=== PATIENT | female | born 1940 | race African-American/Black ===

== ENCOUNTER 2016-10-31 22:45 | Emergency (ER) | payer OTHER ==
[2016-10-31] MEDS ORDERED: DUONEB (A & A) INH ONE (22:51)
--- NOTE | 2016-10-31 23:31 | PROVIDER DOCUMENTATION ---
HPI-Respiratory General - General Source: patient - History of Present Illness-Resp Severity in ED: reports: mild Onset/Duration: reports: 24 hours ago Timing: reports: still present Cough Quality/Degree: reports: mild Episode Frequency: no prior episodes Current Respiratory Medication Therapy: Initiated see nurses note Associated Symptoms: reports: cough, fever/chills, shortness of breath, sore throat Similar Symptoms Previously?: No Recently seen or treated by another doctor?: No <Jayla Mayfield - Last Filed: 10/31/16 23:27> <Everardo Diaz - Last Filed: 11/01/16 00:36> - General Chief Complaint: Cold Symptoms Stated Complaint: SOB Time Seen by Provider: 10/31/16 23:01 Allergies/Adverse Reactions: Patient Allergies Allergy/AdvReac Type Severity Reaction Status Date / Time No Known Allergies Allergy Verified 04/14/15 17:42 Home Medications: Home Medication List Medication Instructions Recorded Confirmed Last Taken Type Home Meds Unobtainable 07/14/16 11/01/16 Unknown History - History of Present Illness-Resp Nature of Presenting Problem: 76 year old F presents to the ED with a cc of shortness of breath with an onset of tonight. PT states that she has had a cough x4 months. Pt states that she has also had a subjective fever and sore throat. PT has a hx of COPD and states that she has not had a nebulizer treatment today. (Jayla Mayfield) Review of Systems - Adult - REVIEW OF SYSTEMS - ADULT Constitutional: reports: fever. denies: chills Eyes: reports: no symptoms reported Ears, Nose, Mouth & Throat: reports: throat pain. denies: ear pain Cardiovascular: denies: chest pain, palpitations Respiratory: reports: cough, shortness of breath Gastrointestinal: denies: nausea, vomiting Genitourinary: reports: no symptoms reported Musculoskeletal: reports: no symptoms reported Integumentary: reports: no symptoms reported Neurological: reports: no symptoms reported Psychiatric: reports: no symptoms reported Endocrine: reports: no symptoms reported Hematologic/Lymphatic: reports: no symptoms reported Allergic/Immunologic: reports: no symptoms reported All Other Systems: Reviewed and Negative <Jayla Mayfield - Last Filed: 10/31/16 23:27> Past History - Adult - PAST MEDICAL HISTORY-ADULT Review of Records: reports: Nursing Assessment Review, Medications Reviewed Major Childhood Illnesses: reports: denies history Cardiovascular: reports: HTN Respiratory: reports: asthma, COPD Gastrointestinal: reports: hemorrhoids Obstetrical/Gynecological: reports: denies history Genitourinary: reports: denies history Musculoskeletal: reports: denies history Neurological: reports: denies history Endocrine/Immune: reports: Diabetes Other Conditions: reports: denies history - PRIOR SURGERIES/PROCEDURES Surgical/Procedure History: reports: colonoscopy (2014), hysterectomy - IMMUNIZATION STATUS Childhood Immunizations: See Nurse Assessment Flu Vaccine: UTD - FAMILY HISTORY Family History: reviewed, not pertinent - SOCIAL HISTORY Smoking: non-smoker Substance Use: none/never Alcohol Use Frequency: never <Jayla Mayfield - Last Filed: 10/31/16 23:27> Physical Exam-General - PHYSICAL EXAM-ADULT Initial Vital Signs Reviewed: Yes - CONSTITUTIONAL General Appearance: appears well, alert, no apparent distress - RESPIRATORY Respiratory: chest non-tender, lungs clear, normal breath sounds - CARDIOVASCULAR Cardiovascular: normal peripheral pulses, regular rate, rhythm, no edema - MUSCULOSKELETAL Extremity: normal inspection, no pedal edema - SKIN Integumentary: normal color, normal turgor, warm/dry - PSYCHIATRIC Psych/Mental Status: normal mood/affect, normal thought content, normal thought process, oriented x 3 <Jayla Mayfield - Last Filed: 10/31/16 23:27> Progress - REASSESSMENT Reassessment #1 Time Reassessed: 00:34 (while awaiting for results pt complained of a cat being in the room, daughter states she does this some times) Status: unchanged <Everardo Diaz - Last Filed: 11/01/16 00:36> Departure <Jayla Mayfield - Last Filed: 10/31/16 23:27> - Departure Time of Disposition Order: 00:35 Certified Medical Emergency: Emergent <Everardo Diaz - Last Filed: 11/01/16 00:36> - Departure DIAGNOSIS: Anxiety Disposition: HOME 01 Condition: Good Attestation - Scribe Verification/Attestation Scribe:: Jayla Mayfield Acting as Scribe for:: Everardo Diaz Scribe documention review:: This chart was documented by a scribe and accurately reflects the service the provider performed and the decisions made by the provider. <Jayla Mayfield - Last Filed: 10/31/16 23:27> Physician Attestation
[2016-10-31 23:38] LABS: MANUAL DIFF NEEDED? NO
[2016-10-31 23:40] LABS: BASO% 0.2 % (0.0-0.8); EOS# 0.06 X1000 (0.0-0.7); EOS% 0.7 % (0.0-10.0); HEMATOCRIT 41.8 % (37.0-47.0); HEMOGLOBIN 15.1 g/dL (12.0-16.0); MCH 30.9 PG (27-31); MCHC 36.1 g/dL (33-37); MCV 85.5 FL (81-99); MONO# 0.61 X1000 (0.11-0.59); MONO% 7.6 % (1.7-9.3); NEUT% 60.5 % (42.2-75.2); PLT 202 X1000 (130-400); RBC 4.89 XMIL (4.2-5.4)
[2016-10-31 23:58] LABS: AGAP 14; ALBUMIN 3.7 g/dL (3.5-5.0); ALKALINE PHOSPHATASE 91 U/L (32-104); BUN 8 mg/dL (8-22); CHLORIDE 102 mmol/L (98-107); COSMO 281; GOT 16 U/L (10-30); GPT 15 U/L (10-36); SODIUM 139 mmol/L (136-145); TCO2 23 mmol/L (25-35); TOTAL BILIRUBIN 0.52 mg/dL (0.20-1.00); TOTAL PROTEIN 6.9 g/dL (6.3-8.3)
[2016-11-01] MEDS ORDERED: ATIVAN PO ONE (00:10)
[2016-11-01 00:44] VITALS: BP 121/72
--- NOTE | 2016-11-01 08:14 | Diag Imaging Result Document ---
PROCEDURE NAME: CHEST-2 VIEWS - 10/31/2016 FRONTAL AND LATERAL CHEST, TWO VIEWS: COMPARISON: 07/14/2016. FINDINGS: The lungs are hyperexpanded. Mild increased AP diameter to the chest. The heart is not enlarged. There are no infiltrates. No pleural effusions. IMPRESSION: 1. Emphysema. 2. No pneumonia. Followup films recommended if symptoms persist.
== END 2016-11-01 00:44 | disposition home or self-care (01) ==
LOC: EDBD → ED 22:45
DX: F41.9 Anxiety disorder, unspecified (principal); R05 Cough; R50.9 Fever, unspecified; R06.02 Shortness of breath; J02.9 Acute pharyngitis, unspecified; I10 Essential (primary) hypertension; J44.9 Chronic obstructive pulmonary disease, unspecified; E11.9 Type 2 diabetes mellitus without complications
CPT/HCPCS: 71020; 80053; 83880; 84484; 85025

== ENCOUNTER 2019-06-14 00:22 | Inpatient (IN) ==
--- NOTE | 2019-06-14 00:33 | PROVIDER DOCUMENTATION ---
HPI-General Adult - General Chief Complaint: Abdominal Pain Stated Complaint: abdominal pain Time Seen by Provider: 06/14/19 00:27 Source: patient Allergies/Adverse Reactions: Patient Allergies Allergy/AdvReac Type Severity Reaction Status Date / Time No Known Allergies Allergy Verified 02/26/18 16:37 Home Medications: Home Medication List Medication Instructions Recorded Confirmed Last Taken Type Duloxetine [Cymbalta] 60 mg PO DAILY 12/26/17 02/26/18 Unknown History Ferrous Sulfate [Iron] 325 mg PO DAILY 12/26/17 02/26/18 01/28/18 08:00 History Losartan [Cozaar] 50 mg PO DAILY 12/26/17 02/26/18 Unknown History Latanoprost 1 drop BOTH EYES BID 02/26/18 02/26/18 Unknown History Carvedilol [Coreg] 3.125 mg PO Q12HR #60 tab 02/28/18 Unknown Rx Furosemide [Lasix] 40 mg PO DAILY #30 tab 02/28/18 Unknown Rx Insulin Humulin 70/30 [Humulin 15 unit SUBQ ACB insuln.pen 02/28/18 Unknown Rx 70/30] Insulin Humulin 70/30 [Humulin 15 unit SUBQ ACS insuln.pen 02/28/18 Unknown Rx 70/30] Nitrofurantoin Monohyd/M-Cryst 100 mg PO BID #10 cap 07/20/18 Unknown Rx [Macrobid 100 mg Capsule] Sulfamethoxazole/Trimethoprim 1 ea PO BID #20 tab 01/16/19 Unknown Rx [Bactrim Ds Tablet] Hydrocortisone/Pramoxine 10 gm RC TID #60 applic 02/01/19 Unknown Rx [Proctofoam-Hc 1%-1% Foam] - History of Present Illness -Gen Adult Nature of Presenting Problems: This is a 79yo female who presents via EMS with family concerns of right lower abdominal pain. Per EMS the family reports that the patient has had nausea, vomiting, and diarrhea since yesterday and family was concerned about the lower abdominal pain. On arrival EMS reports that the patient was complaining of abdom inal pain, but then enroute began to complain of right lower leg pain. Review of Systems - Adult - REVIEW OF SYSTEMS - ADULT ROS:: unobtainable per condition Constitutional: reports: fever, fatique Eyes: reports: no symptoms reported Ears, Nose, Mouth & Throat: reports: no symptoms reported Cardiovascular: reports: no symptoms reported Respiratory: reports: cough Gastrointestinal: reports: no symptoms reported Genitourinary: reports: no symptoms reported Musculoskeletal: reports: muscle weakness Integumentary: reports: no symptoms reported Neurological: reports: no symptoms reported Psychiatric: reports: no symptoms reported Endocrine: reports: no symptoms reported Past History - Adult - PAST MEDICAL HISTORY-ADULT Review of Records: reports: Old Records Reviewed Major Childhood Illnesses: reports: denies history Cardiovascular: reports: HTN Respiratory: reports: asthma, COPD Gastrointestinal: reports: hemorrhoids Obstetrical/Gynecological: reports: denies history Genitourinary: reports: denies history Musculoskeletal: reports: denies history Neurological: reports: denies history Endocrine/Immune: reports: Diabetes Other Conditions: reports: denies history - PRIOR SURGERIES/PROCEDURES Surgical/Procedure History: reports: hysterectomy, colonoscopy - IMMUNIZATION STATUS Childhood Immunizations: See Nurse Assessment Flu Vaccine: UTD - FAMILY HISTORY Family History: reviewed, not pertinent Physical Exam-General - CONSTITUTIONAL General Appearance: thin, lethargic, slow to respond, other (strong urine odor) - EYES Eyes: negative: conjuctival exudate, scleral icterus - HEAD, EARS, NOSE, MOUTH & THROAT HENMT: normocephalic/atraumatic, moist mucous membranes - NECK Neck: normal inspection - RESPIRATORY Respiratory: no respiratory distress, decreased breath sounds (noted on the right) - CARDIOVASCULAR Cardiovascular: regular rate, rhythm, no edema - GASTROINTESTINAL (ABDOMEN) Abdominal Exam: soft, tenderness (RLQ), McBurney's point tenderness - MUSCULOSKELETAL Extremity: normal range of motion (LE with normal range of motion bilaterally, no significant tenderness noted in the LE or at the hips) - SKIN Integumentary: normal color, warm/dry - NEUROLOGIC Neurologic: grossly normal, other (lethargic, slow to respond) - PSYCHIATRIC Psych/Mental Status: other (oriented to person and place) Progress - PLAN OF CARE/RESULTS Result Diagrams: 06/14/19 00:37 06/14/19 01:06 CPR AMBULANCE DRIVER - CONSULTS/PCP/HOSPITALIST Notification #1 *Consult/PCP/Hospitalist*: Dr Love Time Discussed: 03:05 Consult Disposition: Will see in ED - CHANGE OF SHIFT REPORT (ED Provider) 1 Report Given and Care Transferred to:: Dr. Christian Time of Transfer: 01:47 Items Pending: Labs, CT/MRI Results Departure - Departure Date of Disposition Decision: 06/14/19 Time of Disposition Decision: 03:06 DIAGNOSIS: Altered mental status, unspecified Pneumonia Qualifiers: Aspiration pneumonia type: unspecified Laterality: right Lung location: lower lobe of lung Disposition: ADMITTED INPATIENT 09 Certified Medical Emergency: Emergent Condition: Fair Referrals and Follow-Ups: Florencia Alba MD [Primary Care Provider] - - Critical Care Note This patient required my direct & personal management of CC.: No Attestation - Physician/ AKI Attestation Patient care was provided by Advanced Practice Provider:: No The physician spent face to face time with patient:: Yes Advanced Practice Provider documentation review:: Supervising physician onsite and consulted in the evaluation and care of this patient. The physician did have a face to face encounter with the patient.
[2019-06-14 01:06] LABS: BASO# 0.01 X1000 (0.0-0.2); BASO% 0.1 % (0.0-0.8); EOS# 0.01 X1000 (0.0-0.7); EOS% 0.1 % (0.0-10.0); HEMATOCRIT 44.8 % (37.0-47.0); HEMOGLOBIN 15.5 g/dL (12.0-16.0); LYMPH# 0.72 X1000 (1.2-3.4); LYMPH% 5.7 % (20.5-51.1); MCH 29.1 PG (27-31); MCHC 34.6 g/dL (33-37); MCV 84.2 FL (81-99); MONO# 0.55 X1000 (0.11-0.59); MONO% 4.3 % (1.7-9.3); MPV 11.4 FL (7.4-10.4); NEUT# 11.35 X1000 (1.4-6.5); NEUT% 89.4 % (42.2-75.2); PLT 187 X1000 (130-400); RBC 5.32 XMIL (4.2-5.4); RDW 13.2 % (11.5-14.5); WBC 12.69 X1000 (4.8-10.8)
[2019-06-14 01:10] LABS: ESTIMATED GFR > 60
[2019-06-14 01:14] LABS: AGAP 18; ALB/GLOB RATIO 0.9; ALBUMIN 3.5 g/dL (3.5-5.0); ALKALINE PHOSPHATASE 111 U/L (32-104); AMYLASE 25 U/L (20-200); BUN 19 mg/dL (8-22); CALCIUM 9.4 mg/dL (8.8-10.2); CHLORIDE 99 mmol/L (98-107); COSMO 276; CREATININE 0.7 mg/dL (0.5-0.9); GLUCOSE 72 mg/dL (70-104); GOT 37 U/L (10-30); GPT 17 U/L (10-36); LIPASE 5 U/L (13-60); POTASSIUM 3.6 mmol/L (3.5-5.1); SODIUM 138 mmol/L (136-145); TCO2 21 mmol/L (25-35); TOTAL BILIRUBIN 1.48 mg/dL (0.20-1.00); TOTAL PROTEIN 7.5 g/dL (6.3-8.3)
[2019-06-14] MEDS: NS 500 ML IV ONE ×2 (01:54→05:40)
[2019-06-14 02:18] LABS: URINE SOURCE CLEAN CATCH
[2019-06-14 02:32] LABS: BILIRUBIN URINE NEGATIVE (NEGATIVE); BLOOD URINE MODERATE (NEGATIVE); COLOR YELLOW; GLUCOSE URINE NEGATIVE (NEGATIVE); KETONE URINE NEGATIVE (NEGATIVE); LEUKOCYTES URINE LARGE (NEGATIVE); NITRITE URINE NEGATIVE (NEGATIVE); PH URINE 6.5; PROTEIN URINE 100 mg/dL (NEGATIVE); SP GRAVITY URINE 1.009; TURBIDITY URINE HAZY (CLEAR); UROBILINOGEN URINE NORMAL (NORMAL)
[2019-06-14 02:34] LABS: UR EPITHELIAL CELLS <10 /HPF (<10); URINE BACTERIA 4+ /HPF; URINE WBC TNTC /HPF (<10)
[2019-06-14] MEDS ORDERED: ZOSYN 3.375 GM in NS 50 ML IV ONE (02:56)
[2019-06-14] MEDS ORDERED: NS 1,000 ML IV ONE (04:51)
[2019-06-14] MEDS ORDERED: LEVAQUIN 500 MG/D5W 500 MG/100 ML IVPB IV SCH (05:00)
[2019-06-14] MEDS: HUMULIN R SUBQ SCH ×6 (06:26→21:18)
[2019-06-14] MEDS: PRILOSEC PO SCH (06:27)
--- NOTE | 2019-06-14 06:59 | HISTORY AND PHYSICAL ---
CHIEF COMPLAINT: Right-sided chest pain for about 2 to 3 days. HISTORY OF PRESENT ILLNESS: Ms. Mayela Alvarado is an 79-year-old female who has a history of hypertension, COPD, diabetes mellitus. The patient is not a good historian. However, she indicates that she presented to the hospital because of right-sided chest pain which she has had for about 2 to 3 days, and this is associated with shortness of breath and also cough productive of greenish sputum. She denies any hemoptysis. Admits to having fever. Preliminary x-ray report indicates infiltrate noted in both lung mckeon. The patient has now been admitted to the floor for further management. PAST MEDICAL HISTORY: Hypertension, hyperlipidemia, COPD, diabetes mellitus, migraine headaches, history of congestive heart failure. PAST SURGICAL HISTORY: She has had total abdominal hysterectomy, bilateral salpingo-oophorectomy, appendectomy. ALLERGIES: No known drug allergies. SOCIAL HISTORY: No cigarette smoking, alcohol or drug use. MEDICATIONS: Include the following: Cymbalta 60 mg p.o. daily, ferrous sulfate 325 mg p.o. once a day, losartan 50 mg p.o. daily, latanoprost eyedrops, carvedilol 3.125 mg p.o. twice a day, Lasix 40 mg p.o. daily, Humulin 70/30 at 50 units as directed, nitrofurantoin 100 mg p.o. twice a day, Bactrim 1 p.o. twice a day, Proctofoam HC as directed. REVIEW OF SYSTEMS: The patient has fever. GEOCHEMIST: Headaches. ENT: Has sinus problems. Eyes: Uses glasses. GI: Has nausea, vomiting, and also abdominal pains. : She describes urinary incontinence. Musculoskeletal: No joint pains. Dermatology: No skin lesions. Endocrinology: Has diabetes. PHYSICAL EXAMINATION: VITAL SIGNS: Temperature 98.2 degrees, pulse 91, respiratory rate 18, blood pressure 113/54, oxygen saturation is 98%. HEENT: Atraumatic, normocephalic. She is anicteric. Pupils are equal, poorly reactive to light. Extraocular movements intact. No oral lesions noted. NECK: No lymphadenopathy or thyromegaly. CARDIOVASCULAR: S1, S2. RESPIRATORY: Has evidence of good air entry bilaterally. ABDOMEN: Soft, nontender. No masses felt. EXTREMITIES: No evidence of edema. CENTRAL NERVOUS SYSTEM: No obvious focal deficits noted. LABORATORY DATA: WBC is 12.69, hematocrit is 44.8, with a platelet count of 187,000. Sodium is 138, potassium 3.6, chloride 99, bicarb 21, BUN is 19, creatinine 0.9. Lipase level is 5. UA shows a large amount of leukocytes with numerous WBCs, moderate amount of blood. ASSESSMENT AND PLAN: 1. Probable pneumonia. Will obtain sputum and blood cultures. Start the patient on empiric antibiotics. Oxygen supplementation if needed. 2. Chronic obstructive pulmonary disease. Maintain the patient on nebulized bronchodilators as needed. 3. Atypical chest pain. Place the patient on telemetry. Obtain serial cardiac enzymes as well as a D-dimer level. 4. Diabetes mellitus. Maintain the patient on sliding scale insulin. Monitor blood sugar levels. Check hemoglobin A1c level. 5. Probable urinary tract infection. Obtain urine cultures along with blood cultures. Maintain the patient on empiric antibiotics. 6. History of congestive heart failure. A 2-dimensional echocardiogram done on 02/27/2018 shows normal left ventricular systolic function with estimated ejection fraction of 60% to 65%. 7.Abdominal pain ? etiology. Lipase level within normal limits. Will obtain Ct abdomen and pelvis. Patient may need GI evaluation 8. Deep vein thrombosis prophylaxis. Lovenox. 9. Gastrointestinal prophylaxis. Proton pump inhibitor. cc: MD Yanely Haley MD MTDD
--- NOTE | 2019-06-14 07:48 | Diag Imaging Result Doc PS360 ---
EXAM: CHEST-1 VIEW 06/14/2019 HISTORY: abdominal pain TECHNIQUE: AP portable at 0050 COMMENT: The inspiration is suboptimal. Considering this and compared to the previous study of 01/30/2019, there has been no significant change. IMPRESSION: Poor inspiration. Electronically signed by Lake Garcia 06/14/2019 7:46 AM
--- NOTE | 2019-06-14 08:03 | Diag Imaging Result Doc PS360 ---
EXAM: CT HEAD W/O CONTRAST 06/14/2019 HISTORY: Altered Mentation TECHNIQUE: This exam was performed using automated exposure control, adjustment of mA or kV according to patient size, and/or use of iterative reconstruction technique. COMMENT: There are patchy lucencies present in the white matter of both hemispheres. There is cortical encephalomalacia in the posterior parietal lobe on the left. There are calcifications in the internal carotid arteries and vertebral arteries. No evidence of bleed, mass effect, or abnormal extra-axial fluid collection is present. Compared to 01/16/2019 the appearance of the brain has not changed significantly. The visualized paranasal sinuses are clear. The calvarium is intact. IMPRESSION: Chronic ischemic changes. No evidence of acute disease. Electronically signed by Lake Garcia 06/14/2019 8:01 AM
[2019-06-14] MEDS: COZAAR PO SCH ×2 (08:23→08:37)
[2019-06-14] MEDS: FERROUS SULFATE PO SCH ×2 (08:23→08:36)
[2019-06-14] MEDS: XALATAN 0.005% OPH SOLN BOTH EYES SCH ×3 (08:23→21:19)
[2019-06-14] MEDS: CYMBALTA PO SCH ×2 (08:23→08:36)
[2019-06-14] MEDS: COREG PO SCH ×3 (08:23→21:17)
[2019-06-14 09:42] LABS: CK INDEX 0.6 (0.0-2.5); CK-MB 1.79 ng/mL (0.0-5.0)
[2019-06-14] MEDS ORDERED: SODIUM CHLORIDE 0.9% INJ PRN (10:41)
[2019-06-14] MEDS ORDERED: PHENERGAN IV PRN (10:41)
[2019-06-14] MEDS: ZOSYN 4.5 GM in NS 100 ML IV SCH ×3 (10:48→23:10)
--- NOTE | 2019-06-14 10:53 | Diag Imaging Result Doc PS360 ---
EXAM: CT ABD/PELVIS W/IV CONT ONLY 06/14/2019 HISTORY: elevated bilirubin TECHNIQUE: This exam was performed using automated exposure control, adjustment of mA or kV according to patient size, and/or use of iterative reconstruction technique. COMMENT: The current examination is compared with the previous study of 03/17/2013. There are fibrotic changes in the right middle lobe which were present previously. The stomach is not distended. The aorta contains some calcifications but there is no evidence of aneurysm and the mesenteric and renal arteries are patent. There has been previous cholecystectomy. There is bilateral perinephric stranding and delayed nephrograms. This was not the case at the time the previous study. There are some cortical cysts present in both kidneys. There is an area of lucency in the medulla of the mid right kidney anteriorly which was not clearly present at the time the previous examination and the possibility of pyelonephritis with focal abscess cannot be excluded. The kidneys are generally enlarged. There is no evidence of ureterolithiasis. The urinary bladder is slightly distended. There is some apparent periportal edema or intrahepatic biliary dilatation. This was not present at the time the previous study. The adrenal glands and spleen are not enlarged. There is no evidence of bowel obstruction or significant adenopathy. The pancreas is unchanged in appearance. Pelvis: There is a fairly large amount of stool present in the rectosigmoid colon. There is no evidence of free fluid. There has been hysterectomy. There are no masses. There is no evidence of acute bony abnormality. IMPRESSION: Bilateral pyelonephritis. Mild constipation. The findings were discussed with Florencia Alba MD at 06/14/2019 1000. Electronically signed by Lake Garcia 06/14/2019 10:50 AM
[2019-06-14] MEDS: ATIVAN IV PRN ×2 (10:56→18:24)
--- NOTE | 2019-06-14 10:58 | Diag Imaging Result Doc PS360 ---
EXAM: CT ANGIOGRM PULMONARY ARTERIES 06/14/2019 HISTORY: dyspnea, elevated d ddimer TECHNIQUE: This exam was performed using automated exposure control, adjustment of mA or kV according to patient size, and/or use of iterative reconstruction technique. COMMENT: The current study is compared with the previous examination of 04/14/2015. 3-D MIPS were performed. There are no filling defects in the pulmonary arteries. There are some calcifications in the left main and left anterior descending coronary arteries. The aorta is normal in caliber and there is no evidence of dissection. There are no abnormal fluid collections. There are fibrotic changes in the right middle lobe which were also present at the time the previous examination. There is a nodular opacity in the posterior costophrenic sulcus of the right lower lobe which was also present previously. There are no acute pulmonary parenchymal changes. There are spondylotic changes in the thoracic spine. No evidence of acute bony abnormality is present. IMPRESSION: No evidence of acute disease in the chest. Electronically signed by Lake Garcia 06/14/2019 10:55 AM
--- NOTE | 2019-06-14 11:04 | PROGRESS NOTE ---
DATE: 06/14/2019 SUBJECTIVE: Mrs. Alvarado has a history of mild cognitive impairment. Her family reported that she has been increasingly confused and disoriented. She has not been following simple commands. She cannot tell me her name or where she is located or what year it is. A CT scan of the brain demonstrated diffuse white matter changes and cortical encephalomalacia in the posterior parietal lobe on the left. There was no evidence of bleeding, mass effect, or abnormal extra-axial fluid collection. The family reported that she has had episodes of chest pressure and chest tightness in association with shortness of breath. She has had a previous Lexiscan in 04/2017, which demonstrated normal homogeneous uptake of radiotracer throughout the myocardial segments. Her ejection fraction was 75%. Her initial cardiac enzymes have been within normal limits. Of note, her D-dimer was markedly elevated at 2.48. She has had periods of tachycardia and tachypnea. Family also reports that she has had increasing dysuria, increased urinary frequency, and low back pain. A urinalysis demonstrated large leukocyte esterase, positive nitrates, and moderate blood. OBJECTIVE: Vital Signs: Temperature 98.1 degrees, pulse 95, respirations 20, BP 136/52. CV: Tachycardic. Regular S1, S2. Lungs: Faint crackles in the bases bilaterally. Abdomen: There is tenderness over the bladder and left lower quadrant. There is no rebound or guarding. She does have good bowel sounds. LABORATORY DATA: Various laboratory studies were obtained. A CBC demonstrated a white count of 12.6, hemoglobin 15.5, hematocrit 44.8, and a platelet count of 187,000. She did have a left shift. Electrolytes demonstrated the following: Sodium 138, potassium 3.6, chloride 99, CO2 of 21, BUN 19, creatinine 0.7. ASSESSMENT AND PLAN: 1. Metabolic encephalopathy. The etiology of her metabolic encephalopathy is unclear. Her CT scan of the brain demonstrated no intracranial hemorrhage, mass, or acute stroke. She is with complaint of dysuria, increased urinary frequency, and low back pain. Her urinalysis was abnormal. Given an elevated pulse of 127, respiratory rate of 20, with what appears to be a possible urinary tract infection, I believe that she meets the criteria for sepsis. I will resume Zosyn 4.5 grams intravenously every 6 hours, and reduce the dosage of Levaquin to 500 mg intravenously daily. We will continue broad-spectrum antibiotics pending blood cultures and a urine culture. 2. 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 She is really confused and disoriented. I am afraid to try to feed her as she may aspirate. We will place her on pattern sugars, Humulin R sliding scale. 3. Chest pain and dyspnea. She has no previous history of ischemic heart disease. Given the dyspnea, tachycardia, and elevated D-dimer, I will arrange for a CT pulmonary angiogram today. cc: Yanely Alba MD
[2019-06-14 16:09] LABS: CK INDEX 0.8 (0.0-2.5); CK-MB 1.88 ng/mL (0.0-5.0)
[2019-06-15] MEDS: ATIVAN IV PRN (00:11)
[2019-06-15 01:31] LABS: CK INDEX 1.7 (0.0-2.5); CK-MB 11.67 ng/mL (0.0-5.0)
[2019-06-15] MEDS: ZOSYN 4.5 GM in NS 100 ML IV SCH ×4 (04:18→22:58)
[2019-06-15] MEDS ORDERED: LEVAQUIN 750 MG/D5W 750 MG/150 ML IVPB IV SCH (05:00)
[2019-06-15] MEDS: HUMULIN R SUBQ SCH ×4 (06:21→22:57)
[2019-06-15] MEDS: PRILOSEC PO SCH (06:21)
[2019-06-15] MEDS: COZAAR PO SCH (08:50)
[2019-06-15] MEDS: COREG PO SCH ×2 (08:50→21:48)
[2019-06-15] MEDS: CYMBALTA PO SCH (08:50)
[2019-06-15] MEDS: FERROUS SULFATE PO SCH (08:50)
[2019-06-15] MEDS: LOVENOX SUBQ SCH (08:51)
[2019-06-15] MEDS: XALATAN 0.005% OPH SOLN BOTH EYES SCH ×2 (08:51→21:48)
[2019-06-15] MEDS: DUONEB (A & A) INH PRN ×3 (09:20→22:42)
--- NOTE | 2019-06-15 19:59 | PROGRESS NOTE ---
DATE: 06/15/2019 Mrs. Alvarado was admitted to [facility] with a metabolic encephalopathy. Her initial urinalysis was abnormal and we felt that she most likely had UTI with sepsis. A urine culture is growing out gram-negative rods. We started her on Zosyn as well as Levaquin. She seemed much more alert this morning. She is still drowsy and sedated at times. She was oriented to name and place. She could identify who she was. She does have complaint of dysuria, increased urinary frequency, low back pain and nausea. As stated earlier urine cultures grew out E coli. On admission, she had chest pain and dyspnea. Cardiac enzymes were negative. She has no previous history of ischemic heart disease. A CT pulmonary angiogram was unremarkable. There was no evidence of any pneumonia, pleural effusions for pulmonary emboli. PHYSICAL EXAM: Temperature 97.9 degrees, pulse 84, respirations 12, BP 120/38. CV: Regular rate and rhythm. Lungs: Clear. Abdomen: Soft, nontender, with active bowel sounds. Back: There is right CVA tenderness. ASSESSMENT AND PLAN: 1. Metabolic encephalopathy secondary to urinary tract infection with sepsis. We will continue to rehydrate her with normal saline and will continue broad-spectrum antibiotics including Zosyn and Levaquin pending blood and urine cultures. 2. 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 We will advance her diet as tolerated. In the interim period of time we will continue pattern sugars and a Humulin R sliding scale. When she is awake and is eating consistently we will resume her long- acting insulin. cc: Yanely Alba MD
[2019-06-16] MEDS: ZOSYN 4.5 GM in NS 100 ML IV SCH ×4 (05:19→22:45)
[2019-06-16] MEDS: HUMULIN R SUBQ SCH ×4 (06:30→20:46)
[2019-06-16] MEDS: PRILOSEC PO SCH (06:30)
--- NOTE | 2019-06-16 07:47 | PROGRESS NOTE ---
DATE: 06/16/2019 SUBJECTIVE: Mrs. Alvarado was admitted to [facility] with a metabolic encephalopathy secondary to UTI with sepsis. Urine culture and one blood culture grew out Escherichia coli, sensitive to multiple medications. She does not seem as alert and interactive this morning. She appears to be simply staring out into space, and is mumbling. The family has reported some shaking movements of her upper extremities. OBJECTIVE: Vital Signs: Blood pressures have been low overnight. Systolic blood pressures have been in the 80s and 90s, whereas her diastolic blood pressures have been in the 40s and 50s. Blood sugars range from 166 to 232. She is afebrile, pulse 85, respirations 16, BP 99/48. CV: Regular rate and rhythm. Lungs: Clear. Abdomen: Soft, nontender, with active bowel sounds. Back: Right CVA tenderness. ASSESSMENT AND PLAN: 1. Metabolic encephalopathy with urinary tract infection with sepsis. I will increase her fluids, and continue Zosyn as the Escherichia coli was sensitive to it. Her mental status seems worse this morning as compared to yesterday. With the staring blankly ahead and the family reporting shaking, I wonder if she potentially could be having seizures. I will check an electroencephalogram, sleep and awake, today. 2. Hypertension. Her blood pressure is too low. I am going to stop the Coreg, continue fluids, and monitor her blood pressure. 3. Blood sugars are too high. I am going to add Lantus 10 units subcutaneously daily, and continue pattern sugars and a Humulin R sliding scale. cc: Yanely Alba MD
[2019-06-16] MEDS: COZAAR PO SCH (10:19)
[2019-06-16] MEDS: CYMBALTA PO SCH (10:20)
[2019-06-16] MEDS: LOVENOX SUBQ SCH (10:20)
[2019-06-16] MEDS: XALATAN 0.005% OPH SOLN BOTH EYES SCH ×2 (10:20→21:40)
[2019-06-16] MEDS: LANTUS INSULIN SUBQ SCH (10:21)
[2019-06-16] MEDS: FERROUS SULFATE PO SCH (10:21)
[2019-06-17] MEDS: ZOSYN 4.5 GM in NS 100 ML IV SCH ×4 (04:17→22:18)
[2019-06-17] MEDS: PRILOSEC PO SCH (06:28)
[2019-06-17] MEDS: HUMULIN R SUBQ SCH ×4 (06:28→21:13)
--- NOTE | 2019-06-17 08:25 | PROGRESS NOTE ---
DATE: 06/17/2019 SUBJECTIVE: Mrs. Alvarado was admitted to [facility] with a metabolic encephalopathy. Urine and blood cultures are growing out Escherichia coli. Her mental status continues to wax and wane. She is drowsy and sedated. She can tell me her name and her children's name. She cannot tell me where she is. Blood pressure is trending upward off Coreg. Systolic blood pressures are ranging from 112 to 126, whereas her diastolic blood pressures are ranging from 64 to 66. She denies any chest pain, palpitations, or anginal equivalents. CT pulmonary angiogram was negative for PTE. Blood sugars are trending down. Her sugars are ranging from 147 to 205. OBJECTIVE: Vital Signs: Temperature 98.7 degrees, pulse 86, respirations 17, BP 126/66. CV: Regular rate and rhythm. Lungs: Clear. Abdomen: Soft, nontender, with active bowel sounds. ASSESSMENT AND PLAN: 1. Metabolic encephalopathy. She does have urinary tract infection with sepsis. Blood pressure is trending upward. She remains afebrile. We will continue broad-spectrum antibiotics, including Zosyn. I would have hoped that she would have woken up more by now. She has had some shaking movements. I have ordered an electroencephalogram to rule out subclinical seizures. 2. Type 2 insulin-dependent diabetes mellitus. Her sugars are trending downward. We will continue pattern sugars, Humulin R sliding scale, and adjust the dosage of Lantus as needed. cc: Yanely Alba MD
[2019-06-17] MEDS: COZAAR PO SCH ×2 (11:17→16:18)
[2019-06-17] MEDS: FERROUS SULFATE PO SCH ×2 (11:17→16:20)
[2019-06-17] MEDS: LOVENOX SUBQ SCH (11:17)
[2019-06-17] MEDS: CYMBALTA PO SCH ×2 (11:17→16:19)
[2019-06-17] MEDS: XALATAN 0.005% OPH SOLN BOTH EYES SCH ×2 (11:18→21:13)
[2019-06-17] MEDS: LANTUS INSULIN SUBQ SCH (11:18)
[2019-06-17 19:49] LABS: BASO# 0.09 X1000 (0.0-0.2); BASO% 0.7 % (0.0-0.8); EOS# 0.07 X1000 (0.0-0.7); EOS% 0.5 % (0.0-10.0); HEMATOCRIT 41.6 % (37.0-47.0); IMM GRAN# 0.05 X1000 (0.0-0.04); IMM GRAN% 0.4 % (0.0-0.5); LYMPH# 2.19 X1000 (1.2-3.4); MCH 29.1 PG (27-31); MCHC 33.7 g/dL (33-37); MCV 86.5 FL (81-99); MONO# 0.88 X1000 (0.11-0.59); MONO% 6.8 % (1.7-9.3); MPV 12.2 FL (7.4-10.4); NEUT% 74.6 % (42.2-75.2); PLT 187 X1000 (130-400); RBC 4.81 XMIL (4.2-5.4); RDW 14.1 % (11.5-14.5); WBC 12.88 X1000 (4.8-10.8)
--- NOTE | 2019-06-17 19:57 | Diag Imaging Result Doc PS360 ---
EXAM: CT HEAD W/O CONTRAST - 06/17/2019 HISTORY: worsening mental status TECHNIQUE: CT head without contrast COMPARISON: 06/14/2019 FINDINGS: There are atrophic changes and chronic microvascular ischemic changes similar to prior. 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 There is no indication of recent infarct, although acute infarcts may not be immediately visible. There is no evidence of intracranial hemorrhage, mass effect, midline shift, or hydrocephalus. There is no evidence of skull fracture. Visualized portions of paranasal sinuses and mastoid air cells appear clear. IMPRESSION: Atrophic changes and chronic ischemic changes similar to prior. No visible acute intracranial abnormality. No hemorrhage or mass effect. This exam was performed using automated exposure control, adjustment of mA or kV according to patient size, and/or use of iterative reconstruction technique. Electronically signed by Raymon Wyatt 06/17/2019 7:53 PM
[2019-06-17 20:15] LABS: LARGE PLATELETS OCCASIONAL; LYMPHS 13 % (21-51); MONO 7 % (1-9); SEGS 78 % (42-75)
[2019-06-17 20:42] LABS: CALCIUM 9.8 mg/dL (8.8-10.2); CREATININE 1.1 mg/dL (0.5-0.9); POTASSIUM 2.8 mmol/L (3.5-5.1)
[2019-06-17] MEDS ORDERED: 1/2 NS 1,000 ML IV SCH (22:30)
[2019-06-18] MEDS: ATIVAN IV PRN (04:45)
[2019-06-18] MEDS: ZOSYN 4.5 GM in NS 100 ML IV SCH ×5 (04:57→23:06)
[2019-06-18] MEDS: HUMULIN R SUBQ SCH ×4 (06:15→22:30)
[2019-06-18] MEDS: PRILOSEC PO SCH (06:16)
[2019-06-18] MEDS ORDERED: POTASSIUM CHLORIDE 20 MEQ, MAGNESIUM SULFATE 2 GM, THIAMINE 100 MG, FOLIC ACID 1 MG, M.... IV SCH ×6 (06:45)
[2019-06-18] MEDS ORDERED: POTASSIUM CHLORIDE 20 MEQ, MAGNESIUM SULFATE 2 GM, THIAMINE 100 MG, FOLIC ACID 1 MG, M.... IV ONE ×6 (08:00)
[2019-06-18 08:08] LABS: CALCIUM 9.3 mg/dL (8.8-10.2); CREATININE 1.3 mg/dL (0.5-0.9); MAGNESIUM 2.8 mg/dL (1.5-2.7); POTASSIUM 2.7 mmol/L (3.5-5.1)
[2019-06-18 08:11] LABS: FREE T4 0.96 ng/dL (0.93-1.70); TSH 4.58 uIUmL (0.27-4.20)
--- NOTE | 2019-06-18 08:37 | EEG REPORT ---
DATE: 06/16/2019 COMMENT: This is a digitally recorded EEG on an 79-year-old patient with reported altered mental state, trance-like state, staring, shaking of the extremities. FINDINGS: During waking, there is muscle contraction and movement artifact which does not hinder interpretation. Waking background contains polymorphic and rhythmic theta, mostly 4-6 Hz at low amplitude symmetrically across the hemispheres. There is poorly sustained 9 Hz posterior rhythm present bilaterally with uncertain reactivity to eye opening. Drowsing occurred with appearance of more generalized slowing. Stage 2 sleep was not recorded. Photic stimulation did not significantly alter the record. No definite epileptiform discharge was identified. INTERPRETATION: Normal electroencephalogram. CORRELATION: The absence of epileptiform discharges on a single EEG does not exclude a clinical diagnosis of seizures, but there is nothing on this record to suggest a seizure as the reason for her reported behavior. cc: MD Yanely Nieves III, MD MTDD
[2019-06-18] MEDS: CYMBALTA PO SCH (10:00)
[2019-06-18] MEDS: COZAAR PO SCH (10:00)
[2019-06-18] MEDS: FERROUS SULFATE PO SCH (10:01)
[2019-06-18] MEDS: LANTUS INSULIN SUBQ SCH (10:05)
[2019-06-18] MEDS: LOVENOX SUBQ SCH (10:06)
[2019-06-18] MEDS: XALATAN 0.005% OPH SOLN BOTH EYES SCH ×2 (10:07→22:31)
[2019-06-18] MEDS: D5W 1,000 ML IV SCH ×3 (10:40→23:07)
--- NOTE | 2019-06-18 14:44 | NEPHROLOGY CONSULTATION ---
DATE: 06/18/2019 Chief complaint: unable to obtain. HPI: miss Alvarado is an 79-year-old -[place] female with a past medical history of hypertension, COPD, and diabetes Mellitus. She came in on 06/14 with right sided chest pain and a cough with productive green sputum. She admitted to having a fever. Her initial chest x-ray indicated infiltrates in both lung mckeon. Her cardiac enzymes were normal but her D-dimer was elevated at 2.48. She has had episodes of tachycardia. She was treated for metabolic encephalopathy with urinary tract infection. She was treated with IV Zosyn and Levaquin. On hospital day 3 her lab work revealed a sodium level of 170 with waning mental status. Today her sodium level is 169 and she is unable to follow any commands, moaning in the bed with her eyes closed. Past medical history: hypertension, hyperlipidemia, COPD, diabetes Mellitus, migraines, congestive heart failure Past surgical history: total abdominal hysterectomy, bilateral salpingo- oophorectomy appendectomy Social history: Unable to obtain Family history: unable to obtain Allergies: none Home medications:Coreg, Cymbalta, ferrous sulfate, Lasix, Humulin 70/30, losartan, Bactrim DS, latanoprost macrobid. Review of systems: unable to obtain Labs: sodium 169, potassium 2.7, chloride 133, carbon dioxide 21, anion gap 16, BUN 40, creatinine 1.3, calcium 9.3, magnesium 2.8, TSH 4.58, free T4 0.96, cortisol 27.7, intake 965, output 2300. Imaging: Head CT without contrast impression a trophic changes in chronic ischemic changes, no visible acute intracranial abnormality or hemorrhage. CT abdomen pelvis impression bilateral Pyelonephritis and mild constipation. CT angiogram pulmonary arteries impression no evidence of acute disease. Physical exam: vitals. Temperature 98.9, pulse 90, respirations 14, blood pressure 132/57, 02 sat 95% on room air. General: Frail elderly female lying in bed in no acute distress HEENT: Normocephalic, atraumatic. Trachea midline. Mucous membranes Dry. Skin: warm, dry Neck: Supple, no JVD appreciated. Cardiovascular: S1, S2, No murmur or Gallop. Respiratory: clear with equal air excursion. Abdomen: soft, increased moaning when palpating abdomen, Nondistended, hypoactive Bowel sounds present. : non-inspected. Wick in place Extremities: no clubbing, edema, or cyanosis. Neurological: unable to follow commands, would not open her eyes. Moaned out a few times. Assessment and plan: Hypernatremia. We will stop the 1/2 normal saline and give D5W at 200 ml/hr. Ordered urine studies and labs. Will monitor sodium q 4 hours as her free water deficit is replaced. Acute kidney injury. Her initial Creatinine was 0.7 and is now 1.3, likely related to dehydration. Will continue fluids and monitor. Hypokalemia. Will replace. cc: MD Yanely Menezes MD MTDD
[2019-06-18 15:27] LABS: UR POTASSIUM 11.3 mmoll
[2019-06-18] MEDS: POTASSIUM CHLORIDE 20 MEQ/SWI 20 MEQ/100 ML IVPB IV SCH ×2 (17:31→22:30)
--- NOTE | 2019-06-18 19:27 | PROGRESS NOTE ---
DATE: 06/18/2019 SUBJECTIVE: Ms. Alvarado was admitted to [facility] with metabolic encephalopathy secondary to UTI with sepsis. She would arouse to painful stimuli but was nonverbal. She was moving all extremities grossly. A CT scan of the brain last night failed to demonstrate any acute stroke or hemorrhage. Her serum sodium had jumped from 138 to 170. In spite of fluids, her serum sodium has remained elevated at 170 x3. OBJECTIVE: Blood pressure has remained stable. Systolic blood pressures are ranging from 112 to 137, whereas her diastolic blood pressures are ranging from 57 to 71. Temperature 97.5 degrees, pulse 91, respiratory rate 12, BP 112/71. CV: Regular rate and rhythm. Lungs clear. Abdomen soft, nontender, with active bowel sounds. Neurologic: She responds to painful stimuli. ASSESSMENT AND PLAN: 1. Metabolic encephalopathy secondary to urinary tract infection with sepsis. We will continue fluid resuscitation and broad-spectrum intravenous antibiotics including Zosyn. Once she is awake and able to take oral medications, we will switch her to oral antibiotics. 2. Hypernatremia. The etiology of the hypernatremia is unclear. Her cortisol level was elevated, but certainly the cortisol can be elevated in the setting of sepsis. We will check serum osmolality, urine osmolality, urine sodium. I will consult Dr. Glaser to assist with the care of the patient. Further recommendations will be made based upon the result. cc: Yanely Alba MD
[2019-06-19] MEDS: D5W 1,000 ML IV SCH ×5 (03:13→22:13)
[2019-06-19] MEDS: ZOSYN 4.5 GM in NS 100 ML IV SCH ×4 (04:48→22:12)
[2019-06-19 08:26] LABS: ALBUMIN 2.2 g/dL (3.5-5.0); CALCIUM 9.4 mg/dL (8.8-10.2); CREATININE 1.2 mg/dL (0.5-0.9); PHOSPHORUS 2.7 mg/dL (2.7-4.5); POTASSIUM 3.1 mmol/L (3.5-5.1)
[2019-06-19] MEDS ORDERED: POTASSIUM CHLORIDE 40 MEQ/SWI 40 MEQ/100 ML IVPB IV ONE (08:29)
[2019-06-19] MEDS ORDERED: DDAVP 0.01% NAS ONE ×2 (08:42→15:11)
--- NOTE | 2019-06-19 09:14 | Diag Imaging Result Doc PS360 ---
EXAM: CHEST-PORTABLE 06/19/2019 HISTORY: hypoxia TECHNIQUE: AP portable semiupright at 0907 COMMENT: The inspiration is slightly better than on 06/14/2019. The lung bases are clearer. Considering differences in technique and inspiration the appearance the chest has not changed significantly since 01/30/2019. IMPRESSION: Stable chest. Electronically signed by Lake Garcia 06/19/2019 9:11 AM
[2019-06-19 09:15] LABS: ALLEN TEST YES; BE 1.5 mmoll (-3.0-3.0); BLOOD TYPE ARTERIAL; METHB 1.3 % (0.0-1.5); O2HB 94.7 % (95.0-99.0); PCO2(98.6) 34 mmHg (35-45); PO2(98.6) 88 mmHg (60-100); SAMPLE BLOOD; SAO2 98.1 % (95.0-100.0); THB 14.2 g/dL (11.5-17.4); pH(98.6) 7.47 (7.35-7.45)
[2019-06-19 09:16] LABS: MODALITY ROOM AIR
[2019-06-19] MEDS: LOVENOX SUBQ SCH (10:05)
[2019-06-19] MEDS: HUMULIN R SUBQ SCH ×4 (10:13→22:12)
[2019-06-19] MEDS: PRILOSEC PO SCH (10:13)
[2019-06-19] MEDS: COZAAR PO SCH (10:14)
[2019-06-19] MEDS: CYMBALTA PO SCH (10:14)
[2019-06-19] MEDS: FERROUS SULFATE PO SCH (10:14)
[2019-06-19] MEDS: LANTUS INSULIN SUBQ SCH (10:18)
[2019-06-19 11:04] LABS: INR 1.35; PROTIME 16.9 Seconds (11.0-16.0)
[2019-06-19] MEDS ORDERED: NS 250 ML ONE (11:45)
[2019-06-19] MEDS: XALATAN 0.005% OPH SOLN BOTH EYES SCH ×2 (13:44→22:13)
[2019-06-19] MEDS ORDERED: CALMOSEPTINE OINTMENT TOP PRN (16:30)
--- NOTE | 2019-06-19 17:11 | PROGRESS NOTE ---
DATE: 06/19/2019 SUBJECTIVE: Ms Alvarado was admitted to [facility] with metabolic encephalopathy secondary to urinary tract infection with sepsis. Two CAT scans of the brain demonstrated no acute stroke, mass or hemorrhage. Urine cultures grew out E coli. She is currently on Zosyn. She remains afebrile. Her mental status is somewhat improved this morning. She arouses to painful stimuli but does not answer questions. Her serum sodium had jumped from 138 to 170. Blood sugars have ranged from 101 to 155. OBJECTIVE: Temperature 97.8 degrees, pulse 78, respirations 21, BP 113/80.CV: Regular rate and rhythm. Lungs: Clear. Abdomen: Soft, nontender, with active bowel sounds. LABORATORY DATA: A BMP demonstrated the following: Sodium 170, potassium 3.1, chloride 136, BUN 28, creatinine 1.2, and glucose 155. Her albumin was 2.2. ASSESSMENT AND PLAN: 1. Hypernatremia. 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 It is unclear whether it is central or nephrogenic in origin. She has had no evidence of an acute stroke on CT scan which would increase the likelihood of central diabetes insipidus. She still has a persistently low potassium. Her potassium was 3.1. We gave her 40 mEq of KCl IV. Her urine osmolality is still low. We gave her a trial of DDAVP and her urine osmolality increased from 283 to 296. 2. Urinary tract infection with sepsis. We will continue Zosyn 4.5 g IV q.6 hours. 3. Hypokalemia. I will give her KCl 40 mEq IV over 4 hours. 4. Type 2 insulin-dependent diabetes mellitus complicated by peripheral neuropathy. We will continue patterned sugars, Humulin R sliding scale and low-dose Lantus 10 units subcutaneously daily. cc: Yanely Alba MD
--- NOTE | 2019-06-19 20:57 | NEPHROLOGY PROGRESS NOTE ---
DATE: 06/19/2019 SUBJECTIVE: She is more animated today but confused, crying "help me up." OBJECTIVE: Blood pressure 121/92, heart rate 85, respirations 19, afebrile. Generally, anxious, moving constantly. Oropharynx is dry. Neck veins are not visible. Heart is regular. Lungs are equal. Abdomen soft. Extremities: No edema. Limited exam because of movement. IMPRESSION AND PLAN: Hypernatremia. Sodium remains 170 despite D5 water at 200 mL an hour. Her urine osmolality this morning was 283. It remains lower than her serum osmolality. Her potassium is still not completely corrected. I did give a single dose of desmopressin acetate, and we will observe her response. Etiology of her apparent diabetes insipidus is still not clear. cc: MD Yanely Menezes MD
[2019-06-19] MEDS ORDERED: DDAVP 0.01% NAS SCH (21:00)
[2019-06-19 21:22] LABS: AGAP 10; ALBUMIN 2.5 g/dL (3.5-5.0); BUN 20 mg/dL (8-22); CALCIUM 8.7 mg/dL (8.8-10.2); CHLORIDE 129 mmol/L (98-107); COSMO 330; CREATININE 0.9 mg/dL (0.5-0.9); ESTIMATED GFR > 60; GLUCOSE 231 mg/dL (70-104); PHOSPHORUS 3.1 mg/dL (2.7-4.5); TCO2 23 mmol/L (25-35)
[2019-06-19 21:29] LABS: SODIUM 162 mmol/L (136-145)
[2019-06-20] MEDS: D5W 1,000 ML IV SCH ×8 (01:29→21:57)
[2019-06-20] MEDS: ZOSYN 4.5 GM in NS 100 ML IV SCH ×4 (04:03→21:59)
[2019-06-20] MEDS: PRILOSEC PO SCH (06:19)
[2019-06-20] MEDS: HUMULIN R SUBQ SCH ×4 (06:19→21:56)
[2019-06-20 07:31] LABS: AGAP 13; ALBUMIN 2.2 g/dL (3.5-5.0); BUN 14 mg/dL (8-22); CALCIUM 8.4 mg/dL (8.8-10.2); CHLORIDE 121 mmol/L (98-107); COSMO 309; CREATININE 0.9 mg/dL (0.5-0.9); ESTIMATED GFR > 60; GLUCOSE 113 mg/dL (70-104); PHOSPHORUS 3.2 mg/dL (2.7-4.5); POTASSIUM 3.5 mmol/L (3.5-5.1); SODIUM 155 mmol/L (136-145); TCO2 21 mmol/L (25-35)
[2019-06-20] MEDS: COZAAR PO SCH (08:58)
[2019-06-20] MEDS: CYMBALTA PO SCH (08:58)
[2019-06-20] MEDS: LANTUS INSULIN SUBQ SCH (08:58)
[2019-06-20] MEDS: FERROUS SULFATE PO SCH (08:58)
[2019-06-20] MEDS: LOVENOX SUBQ SCH (08:58)
[2019-06-20] MEDS ORDERED: DDAVP 0.01% NAS SCH (10:15)
[2019-06-20] MEDS: XALATAN 0.005% OPH SOLN BOTH EYES SCH ×3 (11:30→21:57)
[2019-06-20] MEDS: POTASSIUM CHLORIDE 20 MEQ/SWI 20 MEQ/100 ML IVPB IV SCH ×2 (11:33→14:08)
--- NOTE | 2019-06-20 13:57 | PROGRESS NOTE ---
DATE: 06/20/[address] Alba complaining of right-sided chest pain for about 2 to 3 days. She is an 79- year-old, history of hypertension, COPD, diabetes mellitus. She is not a good historian. She indicated she presented to the hospital because of right-sided chest pain which she had for 2 or 3 days associated with shortness of breath, productive greenish sputum. She was admitted with probable pneumonia and underlying COPD, atypical chest pain. She developed hypernatremia and was question on whether is diabetes insipidus of nephrogenic origin or central origin. The patient reports she feels better today. She does answer questions but then she will continue talking when someone is in the room. Temperature 97.6 degrees, pulse 84, respirations 16, blood pressure 127/68. Pupils are equal and round.Lungs: Clear in all lung mckeon. Cardiovascular: Regular rhythm and rate without murmur or S3. Urine output is 4000 mL. ASSESSMENT AND PLAN: 1. Hypernatremia. Her sodium has come down to 155 from 177 so heading in the right direction. Her urine osmolality was 283, remains lower than serum osmolality. Potassium was still not completely corrected and they gave her single dose of desmopressin acetate and will observe but sodium is coming down nicely. 2. Urinary tract infection treated with Zosyn. 3. Hypokalemia, supplemented. 4. Diabetes mellitus type 2. Sugars under good control. Review of her orders, she got a single dose of desmopressin 0.2 mL, actually she is getting that twice a day. She got a single dose the day before. She is on Cymbalta 60 mg p.o. daily, Lovenox 40 mg subcu q.24 hours, ferrous sulfate 325 mg a day, Lantus 10 units daily, Prilosec 40 mg a day, Zosyn 4.5 mg q.6 hours and she is getting D5 water at 200 mL an hour. cc: MD Yanely Dolan MD
--- NOTE | 2019-06-20 18:44 | NEPHROLOGY PROGRESS NOTE ---
DATE: 06/20/2019 SUBJECTIVE: She is more alert today. She is asking to get out of bed. OBJECTIVE: Blood pressure 127/68, heart rate 84, respirations 16, afebrile. Generally in no acute distress. Skin is warm and dry. Neck veins are not visible. Oropharynx is moist. Heart is regular. Lungs are equal. No crackles. Abdomen is soft, nontender. Normal bowel sounds.Extremities: No edema. IMPRESSION AND PLAN: Hypernatremia. Improving with D5 water and desmopressin acetate. I will increase this to twice daily. Continue to monitor labs on a daily basis. No other changes. cc: MD Yanely Menezes MD
[2019-06-20] MEDS: DDAVP 0.01% NAS SCH (21:56)
[2019-06-21] MEDS: D5W 1,000 ML IV SCH ×5 (02:39→16:44)
[2019-06-21] MEDS: ZOSYN 4.5 GM in NS 100 ML IV SCH ×4 (05:12→23:51)
[2019-06-21] MEDS: HUMULIN R SUBQ SCH ×4 (06:36→21:19)
[2019-06-21] MEDS: PRILOSEC PO SCH (06:38)
[2019-06-21 08:39] LABS: AGAP 13; ALBUMIN 2.2 g/dL (3.5-5.0); BUN 7 mg/dL (8-22); CHLORIDE 104 mmol/L (98-107); COSMO 282; CREATININE 0.7 mg/dL (0.5-0.9); ESTIMATED GFR > 60; GLUCOSE 244 mg/dL (70-104); PHOSPHORUS 1.9 mg/dL (2.7-4.5); POTASSIUM 3.3 mmol/L (3.5-5.1); SODIUM 138 mmol/L (136-145); TCO2 21 mmol/L (25-35)
[2019-06-21] MEDS: FERROUS SULFATE PO SCH (09:37)
[2019-06-21] MEDS: CYMBALTA PO SCH (09:37)
[2019-06-21] MEDS: COZAAR PO SCH (09:37)
[2019-06-21] MEDS: XALATAN 0.005% OPH SOLN BOTH EYES SCH ×2 (09:37→21:19)
[2019-06-21] MEDS: LOVENOX SUBQ SCH (09:39)
[2019-06-21] MEDS: LANTUS INSULIN SUBQ SCH (09:39)
[2019-06-21] MEDS: DUONEB (A & A) INH PRN (09:50)
--- NOTE | 2019-06-21 13:17 | PROGRESS NOTE ---
DATE: 06/21/2019 SUBJECTIVE: Ms. Alvarado states she feels a little better. She still feels kind of puny. She has remained afebrile. She is eating a little bit. Denies any pain. OBJECTIVE: Vital Signs: Temp 97.6 degrees, pulse 86, respirations 16, blood pressure 136/62. Lungs: Clear in all lung mckeon. Cardiovascular: Regular rhythm and rate without murmur or S3. Abdomen: Soft. Skin: Warm and dry. Note, she was talking to someone. I do not know if she is having visual hallucinations or auditory, but she was talking to someone who was not there in the room when I came in. She does appear comfortable and has no complaints. LABORATORY DATA: Sodium 138, potassium 3.3, chloride 104, BUN 7, creatinine 0.7. Blood sugars 277, 222, 244. CBC: White blood cell count was 12,880, hematocrit is 41, platelet count 187,000. ASSESSMENT AND PLAN: 1. Hypernatremia. Her sodium has come down nicely. She is at 138 this morning. She is getting D5 water and desmopressin acetate, and this was increased to twice a day. Sodiums have come back down to normal. 2. Urinary tract infection, treated with Zosyn. 3. Hypokalemia. Continue to supplement. 4. Diabetes mellitus type 2. Sugar is still running above 200. 5. Still, I think, having either visual or auditory hallucination, and suspect some underlying cognitive decline. She is on Zosyn 4.5 grams intravenously every 6 hours. She is still on D5 water at 200 mL/h. She is on Cymbalta 60 mg a day, Lovenox 40 mg subcutaneously every 24 hours, ferrous sulfate 325 mg a day, insulin glargine 10 units daily, Cozaar 50 mg a day, Prilosec 40 mg a day, Phenergan 12.5 mg intravenously every 4 hours. cc: MD Yanely Dolan MD
[2019-06-21] MEDS: DDAVP 0.01% NAS SCH ×2 (15:59→21:18)
[2019-06-22] MEDS: ZOSYN 4.5 GM in NS 100 ML IV SCH ×4 (05:02→23:30)
[2019-06-22] MEDS: HUMULIN R SUBQ SCH ×4 (06:33→21:30)
[2019-06-22] MEDS: DUONEB (A & A) INH PRN ×2 (07:42→23:19)
[2019-06-22 08:30] LABS: AGAP 13; ALBUMIN 2.1 g/dL (3.5-5.0); BUN 5 mg/dL (8-22); CALCIUM 8.2 mg/dL (8.8-10.2); CHLORIDE 100 mmol/L (98-107); COSMO 268; CREATININE 0.6 mg/dL (0.5-0.9); ESTIMATED GFR > 60; GLUCOSE 107 mg/dL (70-104); PHOSPHORUS 2.7 mg/dL (2.7-4.5); POTASSIUM 3.1 mmol/L (3.5-5.1); SODIUM 135 mmol/L (136-145); TCO2 22 mmol/L (25-35)
[2019-06-22] MEDS: PRILOSEC PO SCH (10:02)
[2019-06-22] MEDS: POTASSIUM CHLORIDE 20 MEQ/SWI 20 MEQ/100 ML IVPB IV SCH ×2 (10:13→15:17)
[2019-06-22] MEDS: XALATAN 0.005% OPH SOLN BOTH EYES SCH ×2 (10:14→21:30)
[2019-06-22] MEDS: FERROUS SULFATE PO SCH (10:14)
[2019-06-22] MEDS: COZAAR PO SCH (10:15)
[2019-06-22] MEDS: CYMBALTA PO SCH (10:15)
[2019-06-22] MEDS: LOVENOX SUBQ SCH (10:15)
[2019-06-22] MEDS: LANTUS INSULIN SUBQ SCH (10:19)
[2019-06-22] MEDS: DDAVP 0.01% NAS SCH (11:12)
--- NOTE | 2019-06-22 11:34 | NEPHROLOGY PROGRESS NOTE ---
DATE: 06/22/2019 Subjective: pt lying in bed resting aroused to tactile stimuli. Garbled speech. Guarding her body when touched. Objective: vitals. Temperature 98.3, pulse 92, respirations 19, blood pressure 106/55, 02 sat 100% on room air. General: Frail elderly female lying in bed in no acute distress HEENT: Normocephalic, atraumatic. Trachea midline. Mucous membranes Dry. Skin: warm, dry Neck: Supple, 6 cm JVD appreciated. Cardiovascular: S1, S2, Regular rate and rhythm. Respiratory: clear with equal air excursion. Abdomen: soft, Nondistended, nontender, hypoactive Bowel sounds present. : non-inspected. Wick in place Extremities: no clubbing or cyanosis. Trace edema to bilateral ankles. Neurological: unable to most commands. Oriented to person. Labs: sodium 135, potassium 3.1, chloride 100, carbon dioxide 22, anion gap 13, BUN 5, creatinine 0.6, calcium 8.2, phosphorus 2.7, albumin 2.1, intake 560, output 3800. Impression: 1. Hypernatremia. Resolved. We will cut down dose of desmopressin and await fine osmolality results. 3. Hypokalemia. Will replace this morning. 4. Medications reviewed. cc: MD Yanely Menezes MD MTDD
--- NOTE | 2019-06-22 17:12 | PROGRESS NOTE ---
DATE: 06/22/2019 Ms. Alvarado was admitted to [facility] with metabolic encephalopathy secondary to urinary tract infection with sepsis. She arouses to verbal and tactile stimuli. She knew her name, but could not tell me where she was or what year it was. Blood sugars are ranging from 140 to 266. She has polyuria and polydipsia. Serum sodium continues to trend down. Her serum sodium this morning was 135. OBJECTIVE: Temperature 98.3 degrees, pulse 92, respirations 19, BP 106/55. Cardiovascular: Regular rate and rhythm. Lungs: Clear. Abdomen: Soft, nontender, with active bowel sounds. ASSESSMENT AND PLAN: 1. Urinary tract infection with sepsis. Urine cultures grew out E coli. We will continue broad- spectrum antibiotics, including intravenous Zosyn, and once she is more awake, we will transition her to oral Levaquin. 2. Hypernatremia. It is still unclear as to whether she has diabetes insipidus or nephrogenic diabetes insipidus. We will stop her D5, continue vasopressin and continue desmopressin, and recheck a BMP and serum osmolality in the morning. cc: Yanely Alba MD
[2019-06-23] MEDS: DDAVP 0.01% NAS SCH ×3 (00:55→20:08)
[2019-06-23] MEDS: ZOSYN 4.5 GM in NS 100 ML IV SCH (05:25)
[2019-06-23] MEDS: PRILOSEC PO SCH (06:23)
[2019-06-23] MEDS: HUMULIN R SUBQ SCH ×4 (06:23→20:07)
[2019-06-23 07:43] LABS: AGAP 11; BUN 8 mg/dL (8-22); CALCIUM 8.8 mg/dL (8.8-10.2); CHLORIDE 107 mmol/L (98-107); COSMO 282; CREATININE 0.7 mg/dL (0.5-0.9); ESTIMATED GFR > 60; GLUCOSE 103 mg/dL (70-104); POTASSIUM 3.6 mmol/L (3.5-5.1); SODIUM 142 mmol/L (136-145); TCO2 24 mmol/L (25-35)
[2019-06-23] MEDS: DUONEB (A & A) INH PRN ×2 (08:10→15:41)
[2019-06-23] MEDS: FERROUS SULFATE PO SCH (08:13)
[2019-06-23] MEDS: COZAAR PO SCH (08:13)
[2019-06-23] MEDS: CYMBALTA PO SCH (08:13)
[2019-06-23] MEDS: LOVENOX SUBQ SCH (08:13)
[2019-06-23] MEDS: LANTUS INSULIN SUBQ SCH (08:13)
[2019-06-23] MEDS: XALATAN 0.005% OPH SOLN BOTH EYES SCH ×2 (08:13→20:06)
[2019-06-23] MEDS: LEVAQUIN PO SCH (09:34)
--- NOTE | 2019-06-23 11:28 | NEPHROLOGY PROGRESS NOTE ---
DATE: 06/23/2019 Subjective: pt lying in bed resting aroused to verbal stimuli. Complains of a headache. When I asked if she felt like getting up with therapy today she said walking makes her nauseous. Denies any uremic complaints. Objective: vitals. Temperature 98.2, pulse 92, respirations 19, blood pressure 103/53, 02 sat 96% on 2 L nasal cannula. General: Frail elderly female lying in bed in no acute distress HEENT: Normocephalic, atraumatic. Trachea midline. Mucous membranes Dry. Skin: warm, dry Neck: Supple, 6 cm JVD appreciated. Cardiovascular: S1, S2, Regular rate and rhythm. Respiratory: clear with equal air excursion. Abdomen: soft, Nondistended, nontender, hypoactive Bowel sounds present. : non-inspected. Wick in place Extremities: no clubbing or cyanosis. Trace edema to bilateral ankles. Neurological:Able to follow commands today, alert and oriented to person and place. Labs: intake 240, output 500. Sodium 142, potassium 3.6, chloride 107, carbon dioxide 24, anion gap 11, BUN8, creatinine 0.7. Impression: Hypernatremia. Resolved. 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 Improved. She is on low dose ddavp which we will wean as an outpatient. rg Medications reviewed. cc: MD Yanely Menezes MD MTDD
--- NOTE | 2019-06-23 13:12 | PROGRESS NOTE ---
DATE: 06/23/2019 SUBJECTIVE: Mrs. Alvarado was admitted to [facility] with a metabolic encephalopathy secondary to urinary tract infection with sepsis. She subsequently developed hypernatremia secondary to diabetes insipidus. Clinically, she is doing much better. She was awake and easily arousable. She was oriented to name, place, and time. Her serum sodium has jumped from 135 to 142. She was sitting up in bed, eating. Blood sugars are ranging from 91 to 165. OBJECTIVE: Vital Signs: She is afebrile, pulse 90, respirations 16, BP 103/53. CV: Regular rate and rhythm. Lungs: Clear. Abdomen: Soft, nontender, with active bowel sounds. No hepatosplenomegaly. No abdominal bruits. ASSESSMENT AND PLAN: 1. Metabolic encephalopathy secondary to urinary tract infection with sepsis. The sepsis has resolved. Urine cultures grew out Escherichia coli. We will transition her to oral Levaquin. She will take a total course of both intravenous and oral antibiotics for a period of 2 weeks. 2. 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 The hypernatremia has resolved. We will continue low-dose DDAVP, and recheck a BMP in the morning. 3. Type 2 insulin-dependent diabetes mellitus. We will continue pattern sugars, Humulin R sliding scale, 1800-calorie [employer] diet, and low-dose Lantus. 4. General debility. We will ask Physical Therapy to see her for evaluation. We will consult [facility] for short-term rehab placement. cc: Yanely Alba MD
[2019-06-24] MEDS: HUMULIN R SUBQ SCH ×3 (06:14→17:14)
[2019-06-24] MEDS: PRILOSEC PO SCH (06:15)
--- NOTE | 2019-06-24 08:43 | PROGRESS NOTE ---
DATE: 08/24/2018 SUBJECTIVE: Mrs. Alvarado was admitted to [facility] with metabolic encephalopathy secondary to urinary tract infection with sepsis. She is awake and easily arousable. She is oriented to name and place this morning. She became agitated during the night and pulled her PICC line. Serum sodium is trending upward. On June 2019 it was 135. This morning was 145. OBJECTIVE: Temperature 98.3 degrees, pulse 102, respirations 20, BP 118/58.CV: Regular rate and rhythm. Lungs: Clear. Abdomen: Soft, nontender, with active bowel sounds. ASSESSMENT AND PLAN: 1. Urinary tract infection with sepsis. Sepsis has resolved. We will continue oral Levaquin 500 mg daily. She is physically very weak. We will continue physical therapy. We are awaiting a short-term rehab bed placement. 2. 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 We will continue low-dose DDAVP. We will follow her serum sodium closely. cc: Yanely Alba MD
[2019-06-24] MEDS: CYMBALTA PO SCH (08:45)
[2019-06-24] MEDS: FERROUS SULFATE PO SCH (08:45)
[2019-06-24] MEDS: LOVENOX SUBQ SCH (08:45)
[2019-06-24] MEDS: LEVAQUIN PO SCH (08:45)
[2019-06-24] MEDS: COZAAR PO SCH (08:45)
[2019-06-24] MEDS: LANTUS INSULIN SUBQ SCH (08:45)
[2019-06-24] MEDS: DDAVP 0.01% NAS SCH (08:46)
[2019-06-24] MEDS: XALATAN 0.005% OPH SOLN BOTH EYES SCH (08:46)
--- NOTE | 2019-06-24 09:33 | DISCHARGE SUMMARY ---
ADMISSION DATE: 06/14/2019 DISCHARGE DATE: 06/24/2019 DISCHARGE DIAGNOSES: 1. Metabolic encephalopathy secondary to urinary tract infection with sepsis. 2. 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 3. Essential hypertension. 4. 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 5. Depression. 6. Gastroesophageal reflux disease. 7. Glaucoma. DISCHARGE INSTRUCTIONS: 1. The patient will be transferred via ambulance to [facility] in order to undergo short- term rehab. 2. Activity as tolerated. 3. An 1800 calorie ADA diet. MEDICATIONS: Losartan 50 mg daily. Cymbalta 60 mg daily. DDAVP 0.01% nasal spray, one intranasal spray twice daily. Humulin 70/30 15 units subcutaneously b.i.d. with meals. Ferrous sulfate 325 mg daily. Levaquin 500 mg daily for 10 days. Omeprazole 40 mg daily. DISCHARGE PHYSICAL EXAMINATION: General: This is an elderly, frail, 79-year-old lady in no apparent distress. She is afebrile. She is awake and easily arousable. She is oriented to name and place. Vital signs: Stable. CV: Regular rate and rhythm. Lungs: Clear. Abdomen: Soft, nontender, with active bowel sounds. No hepatosplenomegaly. No abdominal bruits. HOSPITAL COURSE: Ms. Alvarado was admitted to [facility] for evaluation of altered mental status. We felt that she had a metabolic encephalopathy due to urinary tract infection with sepsis. She met the initial criteria for sepsis syndrome. The patient was rehydrated with normal saline and broad-spectrum antibiotics, including Levaquin and Zosyn were initiated. Urine and blood cultures grew out E coli. She was maintained on intravenous antibiotics, and we transitioned her to intravenous Levaquin and tobramycin based on cultures. She defervesced and remained afebrile. Her mental status improved to baseline. She will complete an additional 10- day course of Levaquin 500 mg daily as an outpatient. After initial clinical improvement, she had worsening mentation and worsening mental status changes. A CT scan of the brain demonstrated chronic atrophy, chronic white matter changes. Serum sodium jumped from 138 to 170. We gave her D5 half-normal saline without improvement in her serum sodium levels. Urine osmolality was low. We felt that she had diabetes insipidus; we were not sure whether it was nephrogenic or central in origin. We replaced the potassium without significant improvement in her serum sodium. We then treated her with DDAVP, and her serum sodium normalized to 138. She has subsequently been off of fluids and has been on low-dose DDAVP. Serum sodium was 145 at the time of discharge. We will recheck a serum sodium in 5 days. She has a longstanding history of type 2 insulin-dependent diabetes mellitus complicated by polyneuropathy. During her altered mental status when she was unable to eat, we placed her on Humulin R sliding scale and pattern sugars. We added low-dose Lantus. Once she was tolerating an 1800 calorie ADA diet, we transitioned her back to Novolin 70/30 15 units subcutaneously b.i.d. with meals. Ms. Alvarado is very weak. She is not independent enough to return safely home. Arrangements were made for her to go to short-term rehab. cc: Yanely Alba MD
--- NOTE | 2019-06-24 15:40 | PROVIDER PROGRESS NOTE ---
Progress Note Subjective: pt getting a bed bath, denies any uremic complaints Objective: vitals. Temp 97.9, pulse 104, blood pressure 111/57, 02 sat 100% on room air. General: Frail elderly female lying in bed in no acute distress HEENT: Normocephalic, atraumatic. Trachea midline. Mucous membranes Dry. Skin: warm, dry Neck: Supple, no JVD appreciated. Cardiovascular: S1, S2, Regular rate and rhythm. Respiratory: clear with equal air excursion. Abdomen: soft, Nondistended, nontender, hypoactive Bowel sounds present. : non-inspected. Wick in place Extremities: no clubbing or cyanosis. Trace edema to bilateral feet. Neurological:Able to follow commands today, alert and oriented to person only. Labs: intake 480, output 1800 Impression: Hypernatremia. 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 Resolved on last labs. Remains on low dose DDAVP. Nutrition. Improved. On supplements. Ambulation. Physical therapy consulted. Medications reviewed.
[2019-06-24 17:19] VITALS: BP 137/68
[2019-06-24 18:36] LABS: URINE SOURCE CATH
[2019-06-24 18:41] LABS: BILIRUBIN URINE NEGATIVE (NEGATIVE); BLOOD URINE TRACE (NEGATIVE); COLOR YELLOW; GLUCOSE URINE NEGATIVE (NEGATIVE); KETONE URINE NEGATIVE (NEGATIVE); LEUKOCYTES URINE TRACE (NEGATIVE); NITRITE URINE NEGATIVE (NEGATIVE); PH URINE 6.5; PROTEIN URINE NEGATIVE (NEGATIVE); SP GRAVITY URINE 1.006; TURBIDITY URINE CLEAR (CLEAR); UR EPITHELIAL CELLS <10 /HPF (<10); URINE BACTERIA NEGATIVE /HPF; URINE RBC <10 /HPF (<10); URINE WBC <10 /HPF (<10); UROBILINOGEN URINE NORMAL (NORMAL)
== END 2019-06-24 19:08 | DRG 871 ==
LOC: SUPCPDRO → ED 00:22 → SUATTDRO 04:34 → 3N 04:34
PROVIDERS: ADMIT Internal Medicine; ATTEND Internal Medicine

== ENCOUNTER 2019-07-01 15:04 | Inpatient (IN) ==
[2019-07-01 16:49] LABS: BE 1.3 mmoll (-3.0-3.0); BLOOD TYPE ARTERIAL; HCO3-(ACT) 25.9 mmoll (20.0-26.0); O2(CT) 16.2 mL/dL (15.0-23.0); O2HB 94.7 % (95.0-99.0); PCO2(98.6) 40 mmHg (35-45); PO2(98.6) 75 mmHg (60-100); SAMPLE BLOOD; SAO2 98.1 % (95.0-100.0); THB 12.1 g/dL (11.5-17.4); pH(98.6) 7.42 (7.35-7.45)
[2019-07-01 16:52] LABS: URINE SOURCE CATH
[2019-07-01 16:52] LABS: BASO# 0.03 X1000 (0.0-0.2); BASO% 0.3 % (0.0-0.8); EOS# 0.14 X1000 (0.0-0.7); EOS% 1.6 % (0.0-10.0); HEMATOCRIT 34.5 % (37.0-47.0); HEMOGLOBIN 11.3 g/dL (12.0-16.0); IMM GRAN# 0.03 X1000 (0.0-0.04); IMM GRAN% 0.3 % (0.0-0.5); LYMPH# 1.52 X1000 (1.2-3.4); LYMPH% 17.7 % (20.5-51.1); MCH 28.3 PG (27-31); MCHC 32.8 g/dL (33-37); MCV 86.5 FL (81-99); MONO% 8.1 % (1.7-9.3); MPV 11.3 FL (7.4-10.4); NEUT# 6.18 X1000 (1.4-6.5); PLT 339 X1000 (130-400); RBC 3.99 XMIL (4.2-5.4); RDW 14.6 % (11.5-14.5)
[2019-07-01 16:52] LABS: ALLEN TEST YES; MODALITY ROOM AIR
[2019-07-01 17:07] LABS: INR 0.95; PROTIME 13.1 Seconds (11.0-16.0)
[2019-07-01 17:08] LABS: PTT 36.6 Seconds (22.3-41.8)
[2019-07-01 17:09] LABS: UR AMPHETAMINES QUAL NONE DETECTED (NONE DETECT); UR BARBITUATES QUAL NONE DETECTED (NONE DETECT); UR BENZODIAZEPIN QUAL NONE DETECTED (NONE DETECT); UR CANNABINOIDS QUAL NONE DETECTED (NONE DETECT); UR COCAINE QUAL NONE DETECTED (NONE DETECT); UR METHADONE QUAL NONE DETECTED (NONE DETECT); UR METHAMPHETAMINE QUAL NONE DETECTED (NONE DETECT); UR OPIATES QUAL NONE DETECTED (NONE DETECT); UR OXYCODONE QUAL NONE DETECTED (NONE DETECT); UR PCP QUAL NONE DETECTED (NONE DETECT); UR PROPOXYPHENE QUAL NONE DETECTED (NONE DETECT); UR TCA QUAL NONE DETECTED (NONE DETECT)
[2019-07-01 17:09] LABS: AGAP 12; ALBUMIN 3.2 g/dL (3.5-5.0); ALKALINE PHOSPHATASE 109 U/L (32-104); BUN 13 mg/dL (8-22); CALCIUM 9.1 mg/dL (8.8-10.2); CHLORIDE 102 mmol/L (98-107); COSMO 279; CREATININE 0.8 mg/dL (0.5-0.9); ESTIMATED GFR > 60; GLUCOSE 158 mg/dL (70-104); GOT 18 U/L (10-30); GPT 18 U/L (10-36); POTASSIUM 3.6 mmol/L (3.5-5.1); SODIUM 138 mmol/L (136-145); TCO2 24 mmol/L (25-35); TOTAL PROTEIN 6.5 g/dL (6.3-8.3)
[2019-07-01 17:17] LABS: BILIRUBIN URINE NEGATIVE (NEGATIVE); BLOOD URINE TRACE (NEGATIVE); COLOR STRAW; GLUCOSE URINE NEGATIVE (NEGATIVE); KETONE URINE NEGATIVE (NEGATIVE); LEUKOCYTES URINE LARGE (NEGATIVE); NITRITE URINE NEGATIVE (NEGATIVE); PROTEIN URINE NEGATIVE (NEGATIVE); SP GRAVITY URINE 1.006; TURBIDITY URINE CLEAR (CLEAR); UROBILINOGEN URINE NORMAL (NORMAL)
--- NOTE | 2019-07-01 17:18 | Diag Imaging Result Doc PS360 ---
EXAM: CT HEAD W/O CONTRAST - 07/01/2019 HISTORY: ams TECHNIQUE: CT head without contrast COMPARISON: 06/17/2017 FINDINGS: There are atrophic changes and chronic microvascular ischemic changes similar to prior. 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 There is no indication of recent infarct, although acute infarcts may not be immediately visible. There is no evidence of intracranial hemorrhage, mass effect, or midline shift. There is no evidence of skull fracture. IMPRESSION: Atrophic changes and chronic ischemic changes similar to prior. No visible acute intracranial abnormality. This exam was performed using automated exposure control, adjustment of mA or kV according to patient size, and/or use of iterative reconstruction technique. Electronically signed by Raymon Wyatt 07/01/2019 5:15 PM
--- NOTE | 2019-07-01 17:18 | Diag Imaging Result Doc PS360 ---
EXAM: CHEST-PORTABLE - 07/01/2019 HISTORY: RECENT PNEUMONIA TECHNIQUE: Portable chest COMPARISON: 06/19/2019 FINDINGS: Heart size appears upper normal. There is mild linear scarring at the right midlung. Lungs otherwise appear clear. There is no pleural effusion or pneumothorax identified. IMPRESSION: No evidence of acute disease. Electronically signed by Raymon Wyatt 07/01/2019 5:16 PM
[2019-07-01 17:30] LABS: UR EPITHELIAL CELLS >10 /HPF (<10); URINE RBC <10 /HPF (<10); URINE WBC <10 /HPF (<10)
[2019-07-01 17:31] LABS: URINE BACTERIA 1+ /HPF; URINE CASTS NONE SEEN; URINE CRYSTALS NONE SEEN; URINE YEAST PRESENT
--- NOTE | 2019-07-01 19:17 | EKG Report ---
Test Performed on : 07/01/2019 6:08:54 PM Test Reason : AMS Blood Pressure : / mmHG Vent. Rate : 088 BPM Atrial Rate : 088 BPM P-R Int : 176 ms QRS Dur : 084 ms QT Int : 402 ms P-R-T Axes : 045 -17 013 degrees QTc Int : 486 ms Normal sinus rhythm. 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
[2019-07-01] MEDS: ROCEPHIN 1 GM in NS 50 ML IV SCH (20:45)
[2019-07-02] MEDS ORDERED: NS 1,000 ML IV ONE (00:18)
[2019-07-02] MEDS ORDERED: TYLENOL PO PRN (00:18)
[2019-07-02] MEDS ORDERED: ZOFRAN IV PRN (00:18)
[2019-07-02 06:43] LABS: BASO# 0.03 X1000 (0.0-0.2); BASO% 0.4 % (0.0-0.8); EOS# 0.11 X1000 (0.0-0.7); EOS% 1.6 % (0.0-10.0); HEMATOCRIT 33.2 % (37.0-47.0); HEMOGLOBIN 10.9 g/dL (12.0-16.0); IMM GRAN# 0.02 X1000 (0.0-0.04); IMM GRAN% 0.3 % (0.0-0.5); LYMPH# 1.41 X1000 (1.2-3.4); LYMPH% 21.1 % (20.5-51.1); MCH 28.5 PG (27-31); MCHC 32.8 g/dL (33-37); MCV 86.7 FL (81-99); MONO# 0.59 X1000 (0.11-0.59); MONO% 8.8 % (1.7-9.3); MPV 11.3 FL (7.4-10.4); NEUT# 4.52 X1000 (1.4-6.5); NEUT% 67.8 % (42.2-75.2); PLT 310 X1000 (130-400); RBC 3.83 XMIL (4.2-5.4); RDW 14.6 % (11.5-14.5); WBC 6.68 X1000 (4.8-10.8)
[2019-07-02 07:23] LABS: AGAP 11; BUN 9 mg/dL (8-22); CHLORIDE 110 mmol/L (98-107); COSMO 291; GLUCOSE 166 mg/dL (70-104); POTASSIUM 3.7 mmol/L (3.5-5.1); SODIUM 145 mmol/L (136-145); TCO2 24 mmol/L (25-35)
[2019-07-02 07:24] LABS: CREATININE 0.7 mg/dL (0.5-0.9)
--- NOTE | 2019-07-02 08:29 | EKG Report ---
Test Performed on : 07/02/2019 07:38:24 AM Test Reason : Elevated Troponin Blood Pressure : / mmHG Vent. Rate : 100 BPM Atrial Rate : 100 BPM P-R Int : 188 ms QRS Dur : 068 ms QT Int : 380 ms P-R-T Axes : 053 -18 001 degrees QTc Int : 490 ms Normal sinus rhythm. Inferior infarct (cited on or before 17-MAR-2013) Abnormal ECG When compared with ECG of 01-JUL-2019 18:08, (Unconfirmed) No significant change was found Unconfirmed Result
[2019-07-02] MEDS ORDERED: HUMULIN 70/30 SUBQ SCH (18:00)
[2019-07-02] MEDS ORDERED: INSULIN PEN NEEDLES ONE (18:30)
[2019-07-02 19:24] LABS: POTASSIUM 3.7 mmol/L (3.5-5.1)
[2019-07-02] MEDS: ROCEPHIN 1 GM in NS 50 ML IV SCH ×2 (20:46→20:49)
[2019-07-02] MEDS: POLYTRIM OPH SOLUTION BOTH EYES SCH (20:46)
[2019-07-02] MEDS: TOPROL XL PO SCH (20:47)
[2019-07-02] MEDS ORDERED: TRILEPTAL PO SCH (21:00)
--- NOTE | 2019-07-02 21:24 | PROGRESS NOTE ---
DATE: 07/02/2019 SUBJECTIVE: Mrs. Alvarado was recently hospitalized at [facility] with a metabolic encephalopathy secondary to urinary tract infection with sepsis. She has just completed an outpatient course of Levaquin. Urine cultures grew out E coli. Her hospitalization was also complicated by the development of hypernatremia secondary to central diabetes insipidus. She was brought to the ER for evaluation of confusion and disorientation. She does have some mild underlying cognitive impairment and vascular issues. A CT scan of the brain demonstrated diffuse chronic white matter changes and cerebral atrophy. Her CBC and electrolytes were grossly normal. They were concerned that she had a repeat urinary tract infection. They started her on Rocephin. Urine cultures demonstrate no growth. Reportedly, she has had some episodes of shaking. A previous EEG demonstrated no evidence of obvious seizures. She is now off the Levaquin. OBJECTIVE: Vital signs: Temperature 97.7 degrees, pulse 103, respirations 20, BP 124/61. CV: Regular rate and rhythm. Lungs: Clear. Abdomen: Soft, nontender, with active bowel sounds. No hepatosplenomegaly. No abdominal bruits. ASSESSMENT AND PLAN: 1. Altered mental status. When I saw her, she was alert and easily arousable. She was oriented to name and place. She still has confusion. There is no evidence of an acute stroke. To this point in time, there is no evidence of infection. Her chest x-ray is clear. I wonder about the possibility of subclinical seizures, and will place her on a trial of Trileptal. 2. Hypertension. Her blood pressure is stable. We will continue her current regimen of medications. 3. Type 2 insulin-dependent diabetes mellitus, complicated by neuropathy. I will place her on a GI soft, 1800 calorie ADA diet, patterned sugars, Humulin R sliding scale, and resume her regular home dosage of insulin. cc: Yanely Alba MD
[2019-07-03] MEDS: ROCEPHIN 1 GM in NS 50 ML IV SCH ×2 (03:54→03:55)
[2019-07-03] MEDS: TOPROL XL PO SCH ×2 (09:20→23:17)
[2019-07-03] MEDS: FERROUS SULFATE PO SCH (09:20)
[2019-07-03] MEDS: KEPPRA XR PO SCH (09:20)
[2019-07-03] MEDS: POLYTRIM OPH SOLUTION BOTH EYES SCH ×4 (09:20→23:17)
[2019-07-03] MEDS: HUMULIN 70/30 SUBQ SCH ×2 (09:21→17:00)
[2019-07-03 10:05] LABS: HEMATOCRIT 36.3 % (37.0-47.0); HEMOGLOBIN 12.5 g/dL (12.0-16.0); MCH 29.8 PG (27-31); MCHC 34.4 g/dL (33-37); MCV 86.4 FL (81-99); MPV 11.4 FL (7.4-10.4); RBC 4.2 XMIL (4.2-5.4); RDW 14.6 % (11.5-14.5); WBC 8.12 X1000 (4.8-10.8)
[2019-07-03 10:33] LABS: AGAP 14; BUN 5 mg/dL (8-22); CALCIUM 9.1 mg/dL (8.8-10.2); CHLORIDE 111 mmol/L (98-107); COSMO 297; CREATININE 0.6 mg/dL (0.5-0.9); ESTIMATED GFR > 60; GLUCOSE 168 mg/dL (70-104); POTASSIUM 3.3 mmol/L (3.5-5.1); SODIUM 149 mmol/L (136-145); TCO2 24 mmol/L (25-35)
[2019-07-03] MEDS ORDERED: D50W SYRINGE IV ONE ×2 (17:30)
[2019-07-03] MEDS ORDERED: NS 500 ML ONE (17:51)
[2019-07-03] MEDS: NS 1,000 ML IV SCH (18:15)
--- NOTE | 2019-07-03 19:07 | PROVIDER DOCUMENTATION ---
This chart was entered by Marely Mackay Scribe, acting as scribe for Reginaldo Alvarado MD. HPI-General Adult - General Chief Complaint: Altered Mental Status Stated Complaint: FALL Time Seen by Provider: 07/01/19 15:13 Source: patient, EMS Allergies/Adverse Reactions: Patient Allergies Allergy/AdvReac Type Severity Reaction Status Date / Time No Known Allergies Allergy Verified 02/26/18 16:37 Home Medications: Home Medication List Medication Instructions Recorded Confirmed Last Taken Type Ferrous Sulfate [Iron] 325 mg PO DAILY 12/26/17 07/02/19 01/28/18 08:00 History Carvedilol [Coreg] 1 tab PO BID 07/02/19 07/02/19 Unknown History Doxycycline Hyclate 50 mg PO DAILY 07/02/19 07/02/19 Unknown History Furosemide [Lasix] 40 mg PO DAILY 07/02/19 07/02/19 Unknown History Insulin Humulin 70/30 [Humulin 15 unit SUBQ BID 07/02/19 07/02/19 Unknown History 70/30] Metoprolol Succinate E.r. [Toprol 25 mg PO BID 07/02/19 07/02/19 Unknown History Xl] Polymyxin/Tmp Oph Solution 1 drp OPHTHALMIC (EYE) 4XDAY 07/02/19 07/02/19 Unknown History [Polytrim Oph Solution] Tobramycin/Dexamethasone 1 drp OPHTHALMIC (EYE) 4XDAY 07/02/19 07/02/19 Unknown History [Tobramycin-Dexameth Ophth Susp] - History of Present Illness -Gen Adult Nature of Presenting Problems: 79yof presents to ED by EMS cc fall and AMS. EMS reports pt was just put in [facility] for rehab after an inpatient hospital stay that started on 06/14/19 for AMS and right lower lobe pneumonia. Pt reports she did fall at 11 or 12 today and denies any pain. Pt is answering questions appropriately but is a little lethargic upon exam. Palpated all joints and extremities from head to toe, with no pain or abnormalities upon exam. Onset/Duration: reports: unsure Modifying Factors: improves with: nothing Similar Symptoms Previously?: Yes Recently seen or treated by another doctor?: Yes (admitted as inpatient 06/14/19) Review of Systems - Adult - REVIEW OF SYSTEMS - ADULT ROS:: ROS per EMS Constitutional: reports: see HPI. denies: chills, fever, fatique Eyes: reports: no symptoms reported Ears, Nose, Mouth & Throat: reports: no symptoms reported Cardiovascular: reports: no symptoms reported Respiratory: reports: no symptoms reported Gastrointestinal: reports: no symptoms reported Genitourinary: reports: no symptoms reported Musculoskeletal: reports: no symptoms reported Integumentary: reports: no symptoms reported Neurological: reports: see HPI, other (AMS) Psychiatric: reports: no symptoms reported Endocrine: reports: no symptoms reported Hematologic/Lymphatic: reports: no symptoms reported Allergic/Immunologic: reports: no symptoms reported All Other Systems: Reviewed and Negative Past History - Adult - PAST MEDICAL HISTORY-ADULT Review of Records: reports: Old Records Reviewed, Nursing Assessment Review, Medications Reviewed, Social history reviewed & non-contributory. Major Childhood Illnesses: reports: denies history Cardiovascular: reports: HTN Respiratory: reports: asthma, COPD Gastrointestinal: reports: hemorrhoids Obstetrical/Gynecological: reports: denies history Genitourinary: reports: denies history Musculoskeletal: reports: denies history Neurological: reports: denies history Endocrine/Immune: reports: Diabetes Other Conditions: reports: denies history - PRIOR SURGERIES/PROCEDURES Surgical/Procedure History: reports: hysterectomy, colonoscopy - IMMUNIZATION STATUS Childhood Immunizations: See Nurse Assessment Flu Vaccine: UTD - FAMILY HISTORY Family History: reviewed, not pertinent Physical Exam-General - PHYSICAL EXAM-ADULT Initial Vital Signs Reviewed: Yes - CONSTITUTIONAL General Appearance: appears well, no apparent distress, lethargic (mild). negative: anxious, combative - EYES Eyes: PERRL/EOMI, pink conjunctivae - HEAD, EARS, NOSE, MOUTH & THROAT HENMT: normocephalic/atraumatic, moist mucous membranes. negative: angioedema - NECK Neck: non-tender, full range of motion, supple, normal inspection. negative: C- spine tenderness - RESPIRATORY Respiratory: chest non-tender, lungs clear, normal breath sounds. negative: wheezing - CARDIOVASCULAR Cardiovascular: normal peripheral pulses, regular rate, rhythm, no edema. negative: bradycardia, tachycardia - GASTROINTESTINAL (ABDOMEN) Abdominal Exam: normal bowel sounds, non tender, soft. negative: rebound - LYMPHATIC Lymphatic: no adenopathy - MUSCULOSKELETAL Back Exam: normal inspection, no CVA tenderness, no vertebral tenderness Extremity: non-tender, normal inspection, no calf tenderness, pelvis stable. negative: deformity - SKIN Integumentary: normal color. negative: diaphoresis, jaundice - NEUROLOGIC Neurologic: embossing machine tender II-XII nml as tested, grossly normal, no motor/sensory deficits - PSYCHIATRIC Psych/Mental Status: normal mood/affect, other (PT SEEMS/ACTS IF DAZED OR SL CONFUSED; HOWEVER, IS ABLE TO SLOWLY ANSWER BASIC QUESTIONS. ANSWERS THAT SHE FELL TODAY ABOUT 10 OR 11 OCLOCK. NO FACIAL OR FACLA WEAKNESS, NO SLURRED SPEECH.). negative: anxious, disheveled Progress - PLAN OF CARE/RESULTS Progress/Plan/Lab Results: Vital Signs - 8 hr 07/01/19 15:06 Temperature 97.6 F Pulse Rate 95 H Respiratory Rate 14 Blood Pressure 106/60 O2 Sat by Pulse Oximetry 98 Laboratory Results - last 24 hr 07/01/19 15:12 POC Glucose 200 H Result Diagrams: 07/03/19 09:20 07/03/19 09:20 - REASSESSMENT Reassessment #1 Time Reassessed: 16:44 Status: improving (still seems dazed and distant in affect. says she feels better than 'the other day'.) Reassessment #2 Time Reassessed: 17:55 Status: unchanged (PAGING DR SALGADO, LABS AND CT, CXR UNREMARKABLE BUT PT STILL DAZED AND MENTALLY SLOW AND NOT HER USUSAL ARTICULATE SELF.) - XRAY 1 XRAY: Bilateral XRAY Study: Chest Impression: See EMR Report (IMPRESSION: No evidence of acute disease. Electronically signed by [employer] 07/01/2019 5:16 PM) - CT/MRI 1 CT Study: Head Impression: See EMR Report (IMPRESSION: Atrophic changes and chronic ischemic changes similar to prior. No visible acute intracranial abnormality. This exam was performed using automated exposure control, adjustment of mA or kV according to patient size, and/or use of iterative reconstruction technique. Electronically signed by [employer] 07/01/2019 5:15 PM) - CONSULTS/PCP/HOSPITALIST Notification #1 *Consult/PCP/Hospitalist*: DR ALEXANDER Time Discussed: 18:30 Consult Disposition: Admit (DR DR SABINO SCHAEFER.) Departure - Departure Date of Disposition Decision: 07/01/19 Time of Disposition Decision: 18:55 DIAGNOSIS: UTI (urinary tract infection) Altered mental status, unspecified Qualifiers: Altered mental status type: somnolence Qualified Code(s): R40.0 - Somnolence Fall Qualifiers: Encounter type: initial encounter Qualified Code(s): W19.XXXA - Unspecified fall, initial encounter Disposition: ADMITTED INPATIENT 09 Certified Medical Emergency: Emergent Condition: Stable - Critical Care Note This patient required my direct & personal management of CC.: No Attestation - Physician/ AKI Attestation Patient care was provided by Advanced Practice Provider:: No The physician spent face to face time with patient:: Yes Advanced Practice Provider documentation review:: Supervising physician onsite and consulted in the evaluation and care of this patient. The physician did have a face to face encounter with the patient. This chart was documented by the indicated scribe, (Marely Mackay Scribe) and accurately reflects the services I performed and decisions made by me, Reginaldo Alvarado MD, as attested by the provider's signature.
--- NOTE | 2019-07-03 19:07 | ED EKG INTERP ---
This chart was entered by Misa Vasques Scribe, acting as scribe for Reginaldo Alvarado MD. EKG Interpretation - EKG Time of EKG reading by physician:: 18:07 EKG Read and Signed by:: Reginaldo Alvarado EKG Interpretation (*Must complete 3 of following elements*): Abnormal Rate: 88 (possible left atrial enlargement ) Rhythm: NSR Comments: inferior infarct, age undetermined Attestation - Physician/ AKI Attestation Patient care was provided by Advanced Practice Provider:: No The physician spent face to face time with patient:: Yes Advanced Practice Provider documentation review:: Supervising physician onsite and consulted in the evaluation and care of this patient. The physician did have a face to face encounter with the patient. This chart was documented by the indicated scribe, (Misa Vasques Scribe) and accurately reflects the services I performed and decisions made by me, Reginaldo Alvarado MD, as attested by the provider's signature.
[2019-07-04] MEDS: NS 1,000 ML IV SCH (06:28)
[2019-07-04] MEDS: ROCEPHIN 1 GM in NS 50 ML IV SCH (06:28)
[2019-07-04] MEDS ORDERED: POTASSIUM CHLORIDE 20 MEQ, MAGNESIUM SULFATE 2 GM, THIAMINE 100 MG, FOLIC ACID 1 MG, M.... IV SCH ×6 (07:45)
[2019-07-04] MEDS ORDERED: DDAVP 0.01% NAS SCH (09:00)
[2019-07-04 10:23] LABS: AGAP 15; BUN 6 mg/dL (8-22); CALCIUM 9.3 mg/dL (8.8-10.2); CHLORIDE 118 mmol/L (98-107); COSMO 308; CREATININE 0.7 mg/dL (0.5-0.9); ESTIMATED GFR > 60; GLUCOSE 119 mg/dL (70-104); POTASSIUM 3.8 mmol/L (3.5-5.1); SODIUM 156 mmol/L (136-145); TCO2 23 mmol/L (25-35)
[2019-07-04] MEDS ORDERED: HUMULIN R SUBQ SCH (11:00)
[2019-07-04] MEDS: KEPPRA XR PO SCH (11:10)
[2019-07-04] MEDS: FERROUS SULFATE PO SCH (11:15)
[2019-07-04] MEDS: TOPROL XL PO SCH (11:15)
--- NOTE | 2019-07-04 11:35 | PROGRESS NOTE ---
DATE: 07/04/2019 SUBJECTIVE: Mrs. Alvarado was admitted to [facility] with a metabolic encephalopathy. She had recently been hospitalized with a UTI with sepsis. She was initially started on broad-spectrum antibiotics. Urine and blood cultures had been negative. Her chest x- ray is clear. White counts were never elevated. She has had increasing confusion and disorientation overnight. Serum sodium is trending upward. Her most recent serum sodium was 149. She does have diabetes insipidus. Blood sugars are fluctuating. She had frequent episodes of symptomatic hypoglycemia. OBJECTIVE: Vital Signs: Temperature 97.8 degrees, pulse 87, respirations 20, blood pressure 109/54. Cardiovascular: Regular rate and rhythm. Lungs: Clear. Abdomen: Soft, nontender, with active bowel sounds. No hepatosplenomegaly. No abdominal bruits. ASSESSMENT AND PLAN: 1. Altered mental status. It does not appear that she had true sepsis. Blood cultures are negative. I will stop the intravenous antibiotics. I suspect that the metabolic encephalopathy is due to the underlying hypernatremia secondary to diabetes insipidus. We will consult the PICC team for placement of a PICC line as she is pulled all of her intravenous accesses. I will resume [id number] saline at 100 mL/hour and adjust the DDAVP as needed. I will recheck a serum sodium and urine osmolality in 3 hours and further adjustments will be made based upon those results. 2. 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 We will hold her regular Novolin 70/30, we will continue pattern sugars and a Humulin R sliding scale. cc: Yanely Alba MD
[2019-07-04 11:45] LABS: INR 1.03; PROTIME 13.6 Seconds (11.0-16.0)
[2019-07-04] MEDS: POLYTRIM OPH SOLUTION BOTH EYES SCH ×3 (11:51→17:18)
[2019-07-04] MEDS ORDERED: GEODON IM ONE (12:53)
[2019-07-04] MEDS ORDERED: STERILE WATER INJ. INJ ONE (12:53)
[2019-07-04] MEDS ORDERED: NS 250 ML ONE (13:21)
--- NOTE | 2019-07-04 14:52 | Diag Imaging Result Doc PS360 ---
EXAM: CHEST-PORTABLE INDICATION: picc line placement TECHNIQUE: One view COMPARISON: 07/01/2019 FINDINGS: The newly placed right PICC line is identified. The tip projecting over the lower SVC just superior to the atriocaval junction in the expected position. Mild linear scarring in the mid lung on the right is approximately stable. No new consolidation is identified. Cardiac silhouette is stable. IMPRESSION: Interval placement of right PICC line. Stable chest, otherwise. Electronically signed by Judah Vasques 07/04/2019 2:50 PM
[2019-07-04] MEDS: HUMULIN R SUBQ SCH (16:50)
[2019-07-04] MEDS: ATIVAN IV PRN (19:06)
[2019-07-04] MEDS: D5 1/2 NS 1,000 ML IV SCH (20:00)
[2019-07-05] MEDS: DDAVP 0.01% NAS SCH ×4 (01:14→20:38)
[2019-07-05] MEDS: TOPROL XL PO SCH ×3 (01:14→21:03)
[2019-07-05] MEDS: HUMULIN R SUBQ SCH ×5 (01:15→21:03)
[2019-07-05] MEDS: POLYTRIM OPH SOLUTION BOTH EYES SCH ×5 (01:15→20:38)
[2019-07-05] MEDS: D5 1/2 NS 1,000 ML IV SCH ×3 (06:06→20:37)
[2019-07-05] MEDS: FERROUS SULFATE PO SCH (09:56)
[2019-07-05] MEDS: KEPPRA XR PO SCH (09:56)
[2019-07-05 10:07] LABS: AGAP 8; BUN 5 mg/dL (8-22); CALCIUM 8.7 mg/dL (8.8-10.2); CHLORIDE 111 mmol/L (98-107); COSMO 292; CREATININE 0.6 mg/dL (0.5-0.9); ESTIMATED GFR > 60; GLUCOSE 169 mg/dL (70-104); POTASSIUM 3.8 mmol/L (3.5-5.1); SODIUM 146 mmol/L (136-145); TCO2 27 mmol/L (25-35)
[2019-07-05] MEDS: ATIVAN IV PRN ×2 (10:07→18:17)
--- NOTE | 2019-07-05 10:41 | PROGRESS NOTE ---
DATE: 07/05/2019 SUBJECTIVE: Mrs. Alvarado was admitted with altered mental status. She responds to painful stimuli. She is nonverbal. Her speech is nonsensical. Serum sodium had trended up to 149. We had resumed D5 half-normal saline and increase the dosage of DDAVP. Serum sodium this morning was 146. She has a previous history of diabetes insipidus. Blood sugars are fluctuating. Her blood sugars are ranging from 147 to 329. She has polyuria and polydipsia. OBJECTIVE: Vital Signs: Temperature 97.8 degrees, pulse 94, respirations 20, blood pressure 118/95. Cardiovascular: Regular rate and rhythm. Lungs: Clear. Abdomen: Soft, nontender, with active bowel sounds. Extremities: Without edema. ASSESSMENT AND PLAN: 1. Metabolic encephalopathy secondary to hypernatremia due to underlying diabetes insipidus. We will continue D5 half-normal saline at 100 mL per hour. We will continue DDAVP. I will check a BMP and urine osmolality every 4 hours. 2. 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 We will continue pattern sugars, Humulin R sliding scale. If her sugars remain persistently elevated on the D5, I will add low-dose Lantus. cc: Yanely Alba MD
[2019-07-05] MEDS ORDERED: CALMOSEPTINE OINTMENT TOP PRN (11:10)
[2019-07-05 16:02] LABS: AGAP 10; BUN 5 mg/dL (8-22); CALCIUM 7.9 mg/dL (8.8-10.2); CHLORIDE 112 mmol/L (98-107); COSMO 311; CREATININE 0.6 mg/dL (0.5-0.9); ESTIMATED GFR > 60; GLUCOSE 444 mg/dL (70-104); POTASSIUM 3.4 mmol/L (3.5-5.1); SODIUM 148 mmol/L (136-145); TCO2 26 mmol/L (25-35)
[2019-07-05 16:49] LABS: AGAP 9; BUN 5 mg/dL (8-22); CALCIUM 8.9 mg/dL (8.8-10.2); CHLORIDE 113 mmol/L (98-107); COSMO 296; CREATININE 0.5 mg/dL (0.5-0.9); ESTIMATED GFR > 60; GLUCOSE 152 mg/dL (70-104); POTASSIUM 3.7 mmol/L (3.5-5.1); SODIUM 149 mmol/L (136-145); TCO2 27 mmol/L (25-35)
[2019-07-05 20:47] LABS: AGAP 8; BUN 5 mg/dL (8-22); CALCIUM 8.8 mg/dL (8.8-10.2); CHLORIDE 110 mmol/L (98-107); COSMO 284; CREATININE 0.5 mg/dL (0.5-0.9); ESTIMATED GFR > 60; GLUCOSE 56 mg/dL (70-104); POTASSIUM 3.5 mmol/L (3.5-5.1); SODIUM 145 mmol/L (136-145); TCO2 27 mmol/L (25-35)
[2019-07-06 02:55] LABS: AGAP 9; BUN 4 mg/dL (8-22); CALCIUM 8.6 mg/dL (8.8-10.2); CHLORIDE 107 mmol/L (98-107); COSMO 284; CREATININE 0.5 mg/dL (0.5-0.9); ESTIMATED GFR > 60; GLUCOSE 171 mg/dL (70-104); POTASSIUM 3.4 mmol/L (3.5-5.1); SODIUM 142 mmol/L (136-145); TCO2 26 mmol/L (25-35)
[2019-07-06] MEDS: HUMULIN R SUBQ SCH ×4 (06:50→22:23)
[2019-07-06] MEDS: D5 1/2 NS 1,000 ML IV SCH ×5 (06:50→22:22)
[2019-07-06] MEDS: KEPPRA XR PO SCH (08:34)
[2019-07-06] MEDS: TOPROL XL PO SCH ×2 (08:34→22:22)
[2019-07-06] MEDS: FERROUS SULFATE PO SCH (08:34)
[2019-07-06] MEDS: POLYTRIM OPH SOLUTION BOTH EYES SCH ×4 (08:39→22:22)
[2019-07-06] MEDS: DDAVP 0.01% NAS SCH ×2 (08:39→22:23)
[2019-07-06 11:41] LABS: AGAP 10; BUN 4 mg/dL (8-22); CALCIUM 8.2 mg/dL (8.8-10.2); CHLORIDE 110 mmol/L (98-107); COSMO 288; CREATININE 0.6 mg/dL (0.5-0.9); ESTIMATED GFR > 60; GLUCOSE 214 mg/dL (70-104); SODIUM 143 mmol/L (136-145); TCO2 23 mmol/L (25-35)
[2019-07-06 14:56] LABS: AGAP 14; BUN 4 mg/dL (8-22); CALCIUM 8.6 mg/dL (8.8-10.2); CHLORIDE 108 mmol/L (98-107); COSMO 277; CREATININE 0.5 mg/dL (0.5-0.9); ESTIMATED GFR > 60; GLUCOSE 80 mg/dL (70-104); POTASSIUM 3.5 mmol/L (3.5-5.1); SODIUM 141 mmol/L (136-145); TCO2 19 mmol/L (25-35)
[2019-07-06] MEDS ORDERED: D50W SYRINGE IV ONE ×2 (15:43→16:58)
[2019-07-06] MEDS: ATIVAN IV PRN (22:25)
[2019-07-07] MEDS: D5 1/2 NS 1,000 ML IV SCH (02:52)
[2019-07-07] MEDS: ATIVAN IV PRN (02:53)
[2019-07-07] MEDS: HUMULIN R SUBQ SCH (07:13)
[2019-07-07] MEDS: FERROUS SULFATE PO SCH (10:12)
[2019-07-07] MEDS: TOPROL XL PO SCH (10:12)
[2019-07-07] MEDS: KEPPRA XR PO SCH (10:12)
[2019-07-07] MEDS ORDERED: ATIVAN IV PRN (12:54)
[2019-07-07] MEDS: POLYTRIM OPH SOLUTION BOTH EYES SCH ×4 (14:18→22:48)
[2019-07-07] MEDS: DDAVP 0.01% NAS SCH ×2 (14:18→22:48)
[2019-07-07] MEDS ORDERED: NOVOLOG MIX 70/30 SUBQ SCH (16:30)
[2019-07-07] MEDS: HUMULIN N SUBQ SCH (18:36)
[2019-07-07] MEDS ORDERED: GEODON IM PRN (21:52)
[2019-07-07] MEDS: ATIVAN PO PRN (22:47)
[2019-07-07] MEDS: TYLENOL PO PRN (22:48)
[2019-07-08] MEDS: DDAVP 0.01% NAS SCH ×3 (01:34→20:23)
[2019-07-08] MEDS: TOPROL XL PO SCH ×3 (01:34→21:00)
[2019-07-08] MEDS: HUMULIN N SUBQ SCH (07:01)
[2019-07-08 07:37] LABS: AGAP 10; BUN 6 mg/dL (8-22); CALCIUM 8.4 mg/dL (8.8-10.2); CHLORIDE 106 mmol/L (98-107); COSMO 274; CREATININE 0.5 mg/dL (0.5-0.9); ESTIMATED GFR > 60; POTASSIUM 3.2 mmol/L (3.5-5.1); SODIUM 140 mmol/L (136-145); TCO2 24 mmol/L (25-35)
[2019-07-08 07:43] LABS: GLUCOSE 40 mg/dL (70-104)
[2019-07-08] MEDS ORDERED: D50W SYRINGE IV ONE (08:07)
[2019-07-08] MEDS ORDERED: D5W IV SCH (08:45)
[2019-07-08] MEDS ORDERED: POTASSIUM CHLORIDE IV SCH (08:45)
[2019-07-08 08:51] LABS: URINE SOURCE CATH
[2019-07-08 08:54] LABS: BILIRUBIN URINE NEGATIVE (NEGATIVE); BLOOD URINE SMALL (NEGATIVE); COLOR ORANGE; GLUCOSE URINE 150 mg/dL (NEGATIVE); KETONE URINE NEGATIVE (NEGATIVE); LEUKOCYTES URINE LARGE (NEGATIVE); NITRITE URINE NEGATIVE (NEGATIVE); PH URINE 6.5; PROTEIN URINE TRACE mg/dL (NEGATIVE); SP GRAVITY URINE 1.011; TURBIDITY URINE HAZY (CLEAR); UROBILINOGEN URINE NORMAL (NORMAL)
[2019-07-08 08:55] LABS: UR EPITHELIAL CELLS <10 /HPF (<10); URINE BACTERIA NEGATIVE /HPF; URINE RBC 20-40 /HPF (<10); URINE WBC TNTC /HPF (<10)
[2019-07-08 09:02] LABS: URINE CASTS NONE SEEN; URINE YEAST PRESENT
[2019-07-08 09:03] LABS: URINE CRYSTALS NONE SEEN; URINE SMALL ROUND CELLS NONE SEEN
[2019-07-08] MEDS: POLYTRIM OPH SOLUTION BOTH EYES SCH ×4 (10:20→20:23)
[2019-07-08] MEDS: KEPPRA XR PO SCH (10:23)
[2019-07-08] MEDS: ATIVAN PO PRN ×2 (10:23→20:23)
[2019-07-08] MEDS: TYLENOL PO PRN ×2 (10:23→20:23)
[2019-07-09] MEDS: TYLENOL PO PRN (05:59)
[2019-07-09] MEDS: ATIVAN PO PRN ×2 (05:59→12:42)
[2019-07-09] MEDS: KEPPRA XR PO SCH (08:56)
[2019-07-09] MEDS: SEPTRA LIQUID PO SCH ×2 (08:59→23:43)
[2019-07-09] MEDS: POLYTRIM OPH SOLUTION BOTH EYES SCH ×5 (09:03→22:53)
[2019-07-09] MEDS: DDAVP 0.01% NAS SCH ×2 (09:04→22:50)
--- NOTE | 2019-07-09 11:01 | Diag Imaging Result Doc PS360 ---
EXAM: CT HEAD W/O CONTRAST HISTORY: AMS TECHNIQUE: CT head without contrast COMPARISON: 07/01/2019 FINDINGS: No parenchymal hemorrhage. No epidural or subdural hematoma. No subarachnoid hemorrhage. There is atrophy with chronic microvascular ischemic changes. No mass identified on this noncontrasted exam. No hydrocephalus. No sinus opacification. IMPRESSION: 1.No hemorrhage 2.Atrophy with chronic microvascular ischemic changes This exam was performed using automated exposure control, adjustment of mA or kV according to patient size, and/or use of iterative reconstruction technique. Electronically signed by Valentin Barrios 07/09/2019 10:59 AM
--- NOTE | 2019-07-09 11:05 | PROGRESS NOTE ---
DATE: 07/09/2019 SUBJECTIVE: The patient's chart was reviewed. In summary, patient was admitted on 06/13/2019 with alteration of mental status in the setting of hyponatremia. It was felt this likely was secondary to diabetes insipidus. IV fluids were initiated. DDAVP was continued. Since that time, patient's sodium level has normalized. Unfortunately, she continues to have some considerable confusion. This morning, upon my arrival, patient was alert to person only. Per nursing report, her p.o. intake is marginal, but improving. She continues to be very weak and confined to the bed. There has been no evidence of fevers, chills, nausea, vomiting, shortness of breath, or chest discomfort. OBJECTIVE: T-max 98.4, heart rate 79 to 93, respirations 14 to 20, blood pressure 97-122/50-77. General: Chronically ill-appearing, no acute distress. Cardiovascular: Regular rate and rhythm. No significant murmurs, rubs, or gallops. Pulmonary: Clear to auscultation anteriorly. Abdomen: Soft, nontender, nondistended. Positive bowel sounds. Extremities: Moves all extremities well. No significant clubbing, cyanosis, or edema. Dermatologic: Evaluation reveals no evidence of rash. Neurologic: Examination reveals an inability to track with her eyes. Possible right-sided neglect, however inconsistent. Laboratory Data: None. ASSESSMENT AND PLAN: 1. Metabolic encephalopathy/alteration of mental status-initially, it was felt this likely was secondary to hypernatremia in the setting of diabetes insipidus. Additionally, patient has what appears to be a urinary tract infection. Her neurologic examination is difficult to obtain, but patient appears to have difficulty tracking. At this point, I am unsure as to her baseline. We will refer patient for a repeat CT scan of the head. At this point, patient is unable to have an MRI performed secondary to her intermittent agitation and confusion. We will check a sedimentation rate and a CRP in the morning to rule out underlying inflammatory conditions. We will continue supportive care. 2. Diabetes insipidus-we will continue patient on DDAVP. We will check a sodium level in the morning. 3. Possible urinary tract infection-patient was started on yesterday. We will continue this. We will follow urine cultures. 4. Diabetes-patient's insulin regimen has been adjusted. Blood sugars are reasonably controlled at present time. 5. Delirium/intermittent agitation-we will continue patient on as-needed lorazepam and Geodon. We will evaluate from a neurological standpoint as described above. 6. Deep venous thrombosis prophylaxis-unfortunately, with the patient's high fall risk, she is not a candidate for Lovenox. We will attempt sequential compression devices while in bed. 7. Disposition-at this point, patient continues to require senior living care in a hospital setting. We will plan discharge home or to a care home once appropriate. cc: MD Yanely Dupree MD
[2019-07-09] MEDS: TOPROL XL PO SCH ×2 (12:43→22:42)
[2019-07-09] MEDS: STERILE WATER INJ. INJ PRN (14:53)
[2019-07-10 07:04] LABS: BASO# 0.02 X1000 (0.0-0.2); BASO% 0.3 % (0.0-0.8); EOS# 0.16 X1000 (0.0-0.7); EOS% 2.3 % (0.0-10.0); HEMATOCRIT 35.1 % (37.0-47.0); LYMPH# 1.93 X1000 (1.2-3.4); LYMPH% 27.7 % (20.5-51.1); MCH 29.3 PG (27-31); MCHC 34.2 g/dL (33-37); MCV 85.6 FL (81-99); MONO# 0.79 X1000 (0.11-0.59); MONO% 11.3 % (1.7-9.3); MPV 11.4 FL (7.4-10.4); NEUT# 4.07 X1000 (1.4-6.5); NEUT% 58.4 % (42.2-75.2); PLT 199 X1000 (130-400); RDW 13.9 % (11.5-14.5); WBC 6.97 X1000 (4.8-10.8)
[2019-07-10 07:29] LABS: AGAP 12; ALB/GLOB RATIO 0.6; ALBUMIN 2.3 g/dL (3.5-5.0); ALKALINE PHOSPHATASE 109 U/L (32-104); BUN 5 mg/dL (8-22); C REACTIVE PROT QUANT 17.48 mg/L (0.00-5.00); CALCIUM 8.4 mg/dL (8.8-10.2); CHLORIDE 107 mmol/L (98-107); COSMO 276; CREATININE 0.6 mg/dL (0.5-0.9); ESTIMATED GFR > 60; GLUCOSE 91 mg/dL (70-104); GOT 28 U/L (10-30); GPT 15 U/L (10-36); POTASSIUM 4.1 mmol/L (3.5-5.1); SODIUM 140 mmol/L (136-145); TCO2 21 mmol/L (25-35); TOTAL BILIRUBIN 0.46 mg/dL (0.20-1.00)
[2019-07-10 08:06] LABS: SED RATE 55 mm/hr (0-20)
[2019-07-10] MEDS: POLYTRIM OPH SOLUTION BOTH EYES SCH (09:00)
[2019-07-10] MEDS: KEPPRA XR PO SCH (09:00)
[2019-07-10] MEDS: SEPTRA LIQUID PO SCH (09:00)
[2019-07-10] MEDS: DDAVP 0.01% NAS SCH ×2 (09:00→22:51)
[2019-07-10] MEDS: TOPROL XL PO SCH ×2 (09:00→22:51)
[2019-07-10] MEDS ORDERED: GEODON IM PRN (10:25)
[2019-07-10] MEDS: DIFLUCAN 200 MG/NS 200 MG/100 ML IVPB IV SCH (12:11)
[2019-07-10] MEDS: TYLENOL PO PRN (23:00)
[2019-07-11] MEDS: GEODON IM PRN (04:16)
[2019-07-11] MEDS: STERILE WATER INJ. INJ PRN (04:16)
[2019-07-11] MEDS: KEPPRA XR PO SCH (09:21)
[2019-07-11] MEDS: DIFLUCAN 200 MG/NS 200 MG/100 ML IVPB IV SCH (11:21)
[2019-07-11] MEDS: DDAVP 0.01% NAS SCH (11:22)
[2019-07-12] MEDS: DDAVP 0.01% NAS SCH ×3 (00:19→21:19)
[2019-07-12] MEDS: TOPROL XL PO SCH ×2 (00:19→21:19)
[2019-07-12] MEDS: KEPPRA XR PO SCH (08:52)
[2019-07-12] MEDS: DIFLUCAN PO SCH (11:52)
[2019-07-12] MEDS: HUMULIN R SUBQ PRN (21:19)
[2019-07-13 07:23] LABS: AGAP 12; BUN 6 mg/dL (8-22); CALCIUM 8.8 mg/dL (8.8-10.2); CHLORIDE 105 mmol/L (98-107); COSMO 276; CREATININE 0.6 mg/dL (0.5-0.9); ESTIMATED GFR > 60; GLUCOSE 105 mg/dL (70-104); SODIUM 139 mmol/L (136-145); TCO2 22 mmol/L (25-35)
[2019-07-13] MEDS: KEPPRA XR PO SCH (10:12)
[2019-07-13] MEDS: DIFLUCAN PO SCH (10:12)
[2019-07-13] MEDS: DDAVP 0.01% NAS SCH ×2 (10:12→20:25)
--- NOTE | 2019-07-13 16:23 | PROGRESS NOTE ---
DATE: 07/13/2019 SUBJECTIVE: Ms. Alvarado was admitted to [facility] with a metabolic encephalopathy. She had recently been hospitalized with a UTI with sepsis and hypernatremia secondary to diabetes insipidus. She completed a 2- week course of oral Levaquin and a repeat urine culture was negative. Serum sodium has normalized with fluids and DDAVP. She seems a little bit more alert this morning. She was sitting up and eating breakfast with the assistance of her son. She could identify her son, and she knew her name. She could not tell me where she was. Previous head CT scans demonstrated no evidence of an acute stroke. Blood sugars are generally ranging from 97 to 271. She is on pattern sugars and a Humulin R sliding scale. She had previously had significant episodes of hypoglycemia on regular dosages of insulin. She has not had any obvious seizure activity. An EEG demonstrated diffuse slowing. OBJECTIVE: Vital Signs: She is afebrile, pulse 86, respirations 17, BP 100/52. CV: Regular rate and rhythm. Lungs: Clear. Abdomen: Soft, nontender, with active bowel sounds. ASSESSMENT AND PLAN: 1. Metabolic encephalopathy. The etiology is unclear. She does have underlying cognitive impairment. She has had episodes of hypernatremia. She has had a recent urinary tract infection. Urine cultures are growing out Diflucan. CT's have shown no evidence of a stroke. We will arrange for an MRI of the brain to get a better look at the brain. We will try to simplify her medicines as possible and will monitor electrolytes. 2. Type 2 insulin-dependent diabetes mellitus. We will continue pattern sugars, Humulin R sliding scale, and an 1800 calorie [place] [employer] diet. cc: Yanely Alba MD
[2019-07-13] MEDS: TOPROL XL PO SCH (20:24)
[2019-07-14] MEDS: DDAVP 0.01% NAS SCH (08:09)
[2019-07-14] MEDS: DIFLUCAN PO SCH (08:09)
[2019-07-14] MEDS: KEPPRA XR PO SCH (08:09)
[2019-07-14] MEDS: GEODON IM PRN (10:24)
[2019-07-14] MEDS: STERILE WATER INJ. INJ PRN (10:25)
--- NOTE | 2019-07-14 12:00 | Diag Imaging Result Doc PS360 ---
EXAM: MRI BRAIN W/O CONTRAST 07/14/2019 HISTORY: Persistent MENTAL STATUS CHANGES AND SEIZURE LIKE TECHNIQUE: T1 sagittal, axial, T2, FLAIR, DWI axial, and coronal gradient echo. COMMENT: The current study is compared with the previous examination of 11/18/2013. There is abnormal increased T2-weighted signal intensity in the hannah associated with decreased T1-weighted signal intensity. This was not apparent on the previous study. There is extensive abnormal increased T2-weighted signal intensity in the periventricular white matter and in a patchy distribution in the subcortical white matter particularly in the frontal and parietal lobes. This is slightly worse in appearance than on the previous examination. There is some apparent cortical encephalomalacia in the left occipital lobe which was also present at the time the previous study. There is no evidence of bleed or abnormal extra-axial fluid collection. There is no evidence of restricted diffusion. There is some apparent iron deposition in the basal ganglia and cerebral peduncles bilaterally. This appearance was also present at the time the previous study. IMPRESSION: Worsened chronic microvascular changes particularly in the hannah. No evidence of acute intracranial disease. Electronically signed by Lake Garcia 07/14/2019 11:57 AM
[2019-07-15] MEDS: TOPROL XL PO SCH (00:07)
[2019-07-15] MEDS: DDAVP 0.01% NAS SCH ×3 (00:07→20:41)
[2019-07-15] MEDS: DIFLUCAN PO SCH (09:33)
[2019-07-15] MEDS: KEPPRA XR PO SCH (09:33)
[2019-07-15 10:01] LABS: BASO# 0.03 X1000 (0.0-0.2); BASO% 0.4 % (0.0-0.8); EOS# 0.68 X1000 (0.0-0.7); EOS% 8.3 % (0.0-10.0); HEMATOCRIT 32.8 % (37.0-47.0); IMM GRAN% 1.2 % (0.0-0.5); LYMPH# 2.33 X1000 (1.2-3.4); LYMPH% 28.5 % (20.5-51.1); MCH 28.4 PG (27-31); MCHC 33.5 g/dL (33-37); MCV 84.8 FL (81-99); MONO# 0.68 X1000 (0.11-0.59); MONO% 8.3 % (1.7-9.3); MPV 11.1 FL (7.4-10.4); NEUT# 4.35 X1000 (1.4-6.5); NEUT% 53.3 % (42.2-75.2); PLT 220 X1000 (130-400); RBC 3.87 XMIL (4.2-5.4); RDW 13.7 % (11.5-14.5); WBC 8.17 X1000 (4.8-10.8)
[2019-07-15 11:16] LABS: AGAP 16; BUN 4 mg/dL (8-22); CALCIUM 8.8 mg/dL (8.8-10.2); CHLORIDE 103 mmol/L (98-107); COSMO 270; CREATININE 0.5 mg/dL (0.5-0.9); ESTIMATED GFR > 60; GLUCOSE 120 mg/dL (70-104); POTASSIUM 4.5 mmol/L (3.5-5.1); SODIUM 136 mmol/L (136-145); TCO2 17 mmol/L (25-35)
[2019-07-15] MEDS: HUMULIN R SUBQ PRN (16:00)
[2019-07-15] MEDS: TYLENOL PO PRN (16:05)
--- NOTE | 2019-07-16 01:03 | PROGRESS NOTE ---
DATE: 07/15/2019 SUBJECTIVE: Mrs. Alvarado was admitted to [facility] with metabolic encephalopathy and delirium. When I saw her this morning, she was sitting up in a chair and was eating breakfast with assistance. She could tell me her full name and name her children. She did not know where she was. Nursing staff reported that she had been confused earlier in the morning and had strange movements of her upper extremities. She has not had any obvious seizure activity. An EEG demonstrated no evidence of obvious seizure activity. A recent MRI showed abnormal increased signal intensity in the hannah. She has diffuse white matter changes in the frontal and parietal lobes. Electrolytes have been stable. Urine culture grew out Diflucan. OBJECTIVE: Vital signs: Temperature 98.6 degrees, pulse 86, respiratory rate 16, BP 103/51, Cardiovascular: Regular rate and rhythm. Lungs: Clear. Abdomen: Soft, nontender with active bowel sounds. Neurologic: She moves all extremities grossly. She is oriented to name only. ASSESSMENT AND PLAN: 1. I am really not sure what has caused the mental status changes. She had been recently hospitalized with a urinary tract infection with sepsis and hypernatremia secondary to diabetes insipidus. Electrolytes are within normal limits. Her urine culture grew out yeast and she is on Diflucan. She has not had any high spiking fevers, chills, or intractable headaches or evidence of nuchal rigidity that would make me think about central nervous system issues. I am going to ask Dr. Fuentes to see her. I do not know if it is worthwhile to do a spinal tap just to make sure there is no evidence of herpetic encephalopathy. 2. Diabetes insipidus. We will continue her on DDAVP and follow her electrolytes closely. cc: Yanely Alba MD
[2019-07-16] MEDS: TOPROL XL PO SCH ×2 (06:53→21:24)
[2019-07-16] MEDS: KEPPRA XR PO SCH (11:23)
[2019-07-16] MEDS: DIFLUCAN PO SCH (11:23)
[2019-07-16] MEDS: DDAVP 0.01% NAS SCH ×2 (11:23→21:20)
[2019-07-16] MEDS: GEODON IM PRN (16:11)
[2019-07-16] MEDS: STERILE WATER INJ. INJ PRN (16:11)
--- NOTE | 2019-07-17 07:35 | CONSULTATION ---
DATE OF CONSULTATION: 07/16/2019 SUBJECTIVE: Ms. Alvarado is 79 years old and she has had altered mental status. She is not able to provide valid history. History is taken from discussion with Dr. Alba, review of hospital record and telephone discussion with patient's daughter. Daughter reports patient has been forgetful in recent months. There was a head injury about 2 years ago when she fell getting off the bus. Daughter thinks there might have been brief altered consciousness then, but patient did not seem significantly altered mentally at that point. There was never a focal neurologic feature. There was no prior history of clinical stroke, seizure, or other neurologic event. She does not use ethanol. Daughter reports the patient has never lived independently. Recently, she lives with some of her children and one of her sons supervises her medications. She presented with evidence of urinary tract infection and possible sepsis a month or so ago. While that was managed, she had abrupt hypernatremia with sodium 170, which persisted over a few days. Diabetes insipidus was diagnosed. DDAVP was added and sodium normalized quickly. She developed an altered mental state without evidence of further infection. She had some peculiar limb movements at times. DATA: EEG showed no evidence of seizure. Noncontrast CT was unremarkable. Brain MRI shows typical white matter changes which have progressed since last scan 5-1/2 years ago. I do not have confidence in my ability to distinguish subtle pituitary findings on MRI and we might ask Radiology for specific comment on appearance of pituitary on the MRI done a few days ago. She has been afebrile. Other than the sodium, which has been corrected, chemistry has been mostly unremarkable. She has had some moderately elevated blood sugars. She has anemia. Sedimentation rate was 55 a week ago. OBJECTIVE: On exam, Ms. Alvarado is awake and alert. I saw her struggling to retrieve pillows that she had knocked off her bed. Her vision seems poor. She counted fingers inconsistently in the left visual field and much more inconsistently in the right visual field. Attention seemed to fluctuate, and I am not sure that my visual field testing is valid. She moved all of her limbs. She followed simple commands and commands requiring right/left distinction and digit distinction. She demonstrated good power in all limbs. Tone is symmetric. Plantar response is silent bilaterally. Reflexes are trace at the ankles and 1+ at the wrists bilaterally. I did not test her gait. She has full lateral eye movement with looking to the left and right on command. Both pupils react briskly to bright light. Facial motility is a little bit diminished bilaterally, but symmetric. Tongue is midline. Head and neck are unremarkable. There is no meningismus. She could not answer any questions correctly regarding orientation. She told me she was at her home, provided an address and did not name the president. She did not identify the hospital. She did not agree that she is in the hospital after I pointed out the typical hospital room surroundings. She could not provide the correct day of the week or name the month. IMPRESSION: 1. Global encephalopathy. She has cognitive impairment and has had some restlessness earlier. This is likely delirium. I suspect there is a component of delirium based on her baseline cognitive impairment and hospitalization with major medical illness. I am not sure there is any additional reason for the current mental state. I do not see evidence of increased intracranial pressure. If the radiologist believes pituitary appearance is normal, I do not think we need to workup for other hypopituitarism. 2. She had some abnormal movement noted earlier which was hard to classify. That has resolved. EEG was negative. If that recurs, we might pursue this further, but I would not do anything more at this time. 3. She has some clinical features consistent with peripheral neuropathy, presumed neuropathy related to diabetes mellitus. I do not think this needs to be pursued urgently. Thanks for asking Neurology to see Ms. Alvarado. cc: MD Yanely Nieves III, MD MTDD
[2019-07-17] MEDS: DDAVP 0.01% NAS SCH ×2 (09:52→21:20)
[2019-07-17] MEDS: DIFLUCAN PO SCH (09:52)
[2019-07-17] MEDS: KEPPRA XR PO SCH (09:52)
--- NOTE | 2019-07-17 18:44 | PROGRESS NOTE ---
DATE: 07/17/2019 Mrs. Alvarado was admitted to [facility] with a metabolic encephalopathy and what appeared to be some degree of delirium. Urine culture grew out yeast for which she is on Diflucan. A repeat EEG demonstrated no clinical subclinical seizure activity. Her electrolytes have remained normal. Sodium was 136 on 07/[address] scans demonstrate no new strokes. She has diffuse white matter changes. Blood sugars are ranging from 122 to 166, temperature 98.1 degrees, pulse 85, BP 152/90, O2 saturation 95% on room air.CV: Regular rate and rhythm. Lungs: Clear. Abdomen: Soft, nontender with active bowel sounds. Neuro: She seems more awake today. She is oriented to name and that she lives in [place]. She follows simple commands. ASSESSMENT AND PLAN: 1. Metabolic encephalopathy. I believe there is some degree of delirium. I am going to try to simplify medicines. We are going to stop the Ativan that she gets p.r.n. We will use Geodon judiciously. Serum electrolytes are normal. Her serum sodium is remaining normal on the DDAVP. Since her EEG was negative I will stop the Keppra. I suspect that she does have some baseline cognitive impairment and I will add Aricept. 2. Diabetes insipidus. We will continue DDAVP and recheck a BMP in the morning. 3. 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 We will continue pattern sugars, Humulin R sliding scale and low-dose Humalog 5 units subcu t.i.d. cc: Yanely Alba MD
[2019-07-17] MEDS: TOPROL XL PO SCH (21:22)
--- NOTE | 2019-07-17 21:45 | PROGRESS NOTE ---
DATE: 07/17/2019 OBJECTIVE: Ms. Alvarado continues disoriented, sometimes not completely attentive. She is moving her limbs equally. I could not demonstrate good vision with either eye or in either field. Neck is supple. Lateral eye movements are full. DIAGNOSTIC DATA: I discussed the noncontrast brain MRI done 07/14/[address] Garcia. The pituitary is well enough imaged and appears to be intact. ASSESSMENT AND PLAN: I do not have any new thoughts or new suggestions today. I believe that she has a baseline cognitive impairment syndrome which predisposes her to more prominent and more protracted encephalopathy with any toxic or metabolic state. If her clinical course becomes concerning for hypopituitarism, we might obtain contrast MRI of the pituitary. I do not think that is necessary now. I agree with Dr. Alba' management, adding donepezil, continuing p.r.n. ziprasidone, continuing off of levetiracetam. Thanks for asking Neurology to see Ms. Alvarado. I will be glad to see her again, if needed. cc: MD Yanely Nieves III, MD MTDD
[2019-07-18] MEDS: DDAVP 0.01% NAS SCH ×2 (08:41→22:08)
[2019-07-18] MEDS: ARICEPT PO SCH (08:41)
[2019-07-18] MEDS: DIFLUCAN PO SCH (08:41)
--- NOTE | 2019-07-18 18:36 | PROGRESS NOTE ---
DATE: 07/18/2019 Ms Alvarado seems to be improving slowly. She has periods of disorientation, at other times she is more lucid and interactive. She knew her name. Could tell me her children's names and knew who I was today. Her speech is still somewhat rambling. EEG was negative for seizure activity and we have stopped her Keppra. Blood pressure remains well controlled. Systolic blood pressures range from 121 to 134 whereas her diastolic blood pressures have been in the 50s and 60s. She denies any chest pain, palpitations, or anginal equivalents. Blood sugars are ranging from 120 to 186. Temperature 98.3 degrees, pulse 99, respirations 16, BP 121/66.CV: Regular rate and rhythm. Lungs: Clear. Abdomen: Soft, nontender, with active bowel sounds. ASSESSMENT AND PLAN: 1. Metabolic encephalopathy. She does have underlying cognitive issues and has seemed to have a prolonged course of encephalopathy and delirium. She seems a little bit more alert this morning. Electrolytes are normal. We stopped her Keppra as the EEG was negative. We will try to simplify her medicines. It really remains to be seen whether or not she will make long-term significant improvement. We will continue physical therapy. 2. 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 Blood sugars are generally stable. We will continue pattern sugars, Humulin R sliding scale, low-dose Humalog 5 units subcu t.i.d. cc: Yanely Alba MD
[2019-07-18] MEDS: TOPROL XL PO SCH (22:08)
[2019-07-18] MEDS: STERILE WATER INJ. INJ PRN (22:09)
[2019-07-18] MEDS: GEODON IM PRN (22:09)
[2019-07-19] MEDS: TYLENOL PO PRN (05:44)
[2019-07-19 07:05] LABS: AGAP 13; BUN 4 mg/dL (8-22); CALCIUM 9.4 mg/dL (8.8-10.2); CHLORIDE 100 mmol/L (98-107); COSMO 272; CREATININE 0.5 mg/dL (0.5-0.9); ESTIMATED GFR > 60; GLUCOSE 154 mg/dL (70-104); POTASSIUM 3.9 mmol/L (3.5-5.1); SODIUM 136 mmol/L (136-145); TCO2 23 mmol/L (25-35)
[2019-07-19] MEDS: DIFLUCAN PO SCH (10:22)
[2019-07-19] MEDS: ARICEPT PO SCH (10:22)
[2019-07-19] MEDS: DDAVP 0.01% NAS SCH ×2 (10:23→20:59)
--- NOTE | 2019-07-19 11:18 | PROGRESS NOTE ---
DATE: 07/19/2019 SUBJECTIVE: Mrs. Alvarado remains fairly stable from a neurologic standpoint. She has periods of disorientation. She has periods where she is more lucid and interactive. Over the past 2 to 3 days, she has consistently known her name and could tell me her children's name. She knew who I was. She has not had any nausea, vomiting, fever, or chills. Blood sugars are ranging from 153 to 231. OBJECTIVE: Vital Signs: Temperature 98.2 degrees, pulse 76, respirations 14, BP 110/70. CV: Regular rate and rhythm. Lungs: Clear. Abdomen: Soft, nontender, with active bowel sounds. ASSESSMENT AND PLAN: 1. Metabolic encephalopathy with delirium. She continues with periods of disorientation. She has periods of lucidity. We will continue the Aricept. She has been fairly stable neurologically over the past 2 or [address] talking to [address] Fuentes, I really am concerned that there may not be much more improvement. We will continue to monitor her clinically. We will have Physical Therapy work with her. Hopefully, we will be able to get her back to rehab soon. 2. Type 2 insulin-dependent diabetes mellitus. Her sugars are still a little bit too high. We will continue as needed Humalog. 3. Diabetes insipidus. Serum sodium is normal at 136. We will continue DDAVP. cc: Yanely Alba MD
[2019-07-19] MEDS: TOPROL XL PO SCH (20:59)
[2019-07-20] MEDS: DDAVP 0.01% NAS SCH ×2 (08:52→21:05)
[2019-07-20] MEDS: DIFLUCAN PO SCH (08:52)
[2019-07-20] MEDS: ARICEPT PO SCH (08:52)
--- NOTE | 2019-07-20 20:15 | PROGRESS NOTE ---
DATE: 07/20/2019 SUBJECTIVE: Mrs. Alvarado was admitted to [facility] with metabolic encephalopathy and has had a prolonged course of delirium. There has been relative stability over the past several days. She still has intermittent episodes of disorientation and confusion. At other times, she has been very lucid. She has been consistently oriented to name, home address, and the names of her children. She answers other questions appropriately. MRI of the brain demonstrated chronic white matter changes. An EEG demonstrated no subclinical seizures. There has been no evidence of encephalopathy due to an infectious etiology. She has been taking Diflucan for an underlying yeast infection. Serum sodium has remained normal on DDAVP. OBJECTIVE: Vital signs: She is afebrile. Vital signs are stable. CV: Regular rate and rhythm. Lungs: Clear. Abdomen: Soft, nontender, with active bowel sounds. No hepatosplenomegaly. No abdominal bruits. ASSESSMENT AND PLAN: Metabolic encephalopathy with prolonged delirium in the face of vascular dementia. She appears to be at a fairly consistent place neurologically. She has periods where she is very lucid. At other times, she is confused. We will continue the Aricept and follow her clinically. Certainly, at this point in time, she is not strong enough to be able to return home safely. We will make arrangements for her to go to [facility] in order to undergo short-term rehab in order to build up her strength so that she can return home safely. cc: Yanely Alba MD
[2019-07-20] MEDS: TOPROL XL PO SCH (21:05)
[2019-07-21] MEDS: GEODON IM PRN (05:07)
[2019-07-21] MEDS: STERILE WATER INJ. INJ PRN (05:07)
[2019-07-21 07:47] VITALS: BP 135/54
[2019-07-21] MEDS ORDERED: COREG PO SCH (09:00)
[2019-07-21] MEDS: ARICEPT PO SCH (09:13)
[2019-07-21] MEDS: DIFLUCAN PO SCH (09:13)
[2019-07-21] MEDS: DDAVP 0.01% NAS SCH (09:13)
--- NOTE | 2019-07-21 09:24 | HISTORY AND PHYSICAL ---
CHIEF COMPLAINT: Altered mental status. HISTORY OF PRESENT ILLNESS: Ms. Mayela Alvarado is an 79-year-old, -[place] lady with a history of multiple medical problems including essential hypertension, mixed hyperlipidemia, type 2 insulin-dependent diabetes mellitus complicated by polyneuropathy, migraine headaches, and vascular dementia, who is well-known to me. She was admitted to [facility] from 06/14/2019 to 06/24/2019 with a metabolic encephalopathy secondary to a urinary tract infection with sepsis and hypernatremia secondary to central diabetes insipidus. She was brought back to the ER for mental status changes. She had periods of confusion and disorientation. She was not oriented to name, place, or time. Her initial CT scan of the brain demonstrated diffuse white matter changes. There was no intracranial hemorrhage, mass effect, or midline shift. They were concerned that she was trying to get another urinary tract infection. Her urinalysis on admission demonstrated large leukocyte esterase, too numerous to count WBCs, and small blood. She denied any fever, chills, nausea, or vomiting. PAST MEDICAL HISTORY: Essential hypertension, COPD, type 2 insulin-dependent diabetes mellitus complicated by diabetic polyneuropathy, gastroesophageal reflux disease with a history of gastric adenomas, vascular dementia, and depression. PAST SURGICAL HISTORY: Bilateral cataract surgery, cholecystectomy, appendectomy. ALLERGIES: No known drug allergies. FAMILY HISTORY: Her father had known heart disease and of an NM at age 65. Her mother had hypertension. She had one sister with insulin-dependent diabetes mellitus. SOCIAL HISTORY: She has never smoked. She does not consume alcoholic beverages. She lives at home with her children. REVIEW OF SYSTEMS: She denies any recent weight gain or weight loss. HEENT: She wears glasses. She is hard of hearing. CV: No chest pain, palpitations, or anginal equivalents. Pulmonary: No shortness of breath, PND, orthopnea. GI: No reflux, dysphagia, melena, hematochezia, change in bowel habits, or rectal bleeding. Endocrine: No polyuria, no polydipsia. No cold or heat intolerance. Skin: No easy bruisability. : She has had recurrent urinary tract infections. Neurologic: No migraines or seizures. PHYSICAL EXAMINATION: VITAL SIGNS: She is afebrile, pulse 106, respirations 18, BP 108/52. HEENT: Fundi with arteriolar wall thickening. Pupils equal, round, reactive to light. Extraocular eye movements intact. TMs without bullae. NECK: Supple. No masses, JVD, or bruits. CV: Tachycardic, regular S1, S2. LUNGS: Clear. ABDOMEN: Soft, nontender, with active bowel sounds. No hepatosplenomegaly. No abdominal bruits. EXTREMITIES: Without edema. SKIN: No palpable purpura. NEUROLOGIC: No migraines or seizures. PSYCHIATRIC: She moves all extremities grossly. She is sedated but easily arousable. She is not oriented to name, place, or time. ASSESSMENT AND PLAN: 1. Metabolic encephalopathy. The etiology of the encephalopathy is unclear. Her initial chest x- ray is clear. Urinalysis is positive. We will begin broad-spectrum antibiotics pending blood and urine cultures. She does not seem to have any obvious electrolyte abnormalities or significant hypernatremia. We will cautiously give her fluids and continue the DDAVP. Other potential etiologies include subclinical seizures. We will arrange for an electroencephalogram. We will also check an MRI of the brain. Certainly, a stroke could exacerbate and cause mental status changes. 2. 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 We will hold her regular home dosage of insulin. We will place her on pattern of sugars and a Humulin R sliding scale. 3. Diabetes insipidus. We will continue DDAVP and follow her electrolytes. Given her clinical presentation and comorbid conditions, I believe that admission to the hospital is reasonable and necessary. I anticipate she will be in the hospital for at least 2 midnights and I will therefore place her in inpatient status. cc: Yanely Alba MD
--- NOTE | 2019-07-21 12:20 | DISCHARGE SUMMARY ---
ADMISSION DATE: 07/02/2019 DISCHARGE DATE: 07/21/2019 DISCHARGE DIAGNOSES: 1. Metabolic encephalopathy. 2. Vascular dementia with psychosis. 3. Acute delirium. 4. Urinary tract infection. 5. Diabetes insipidus. 6. 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 7. Essential hypertension. 8. Depression. DISCHARGE INSTRUCTIONS: 1. The patient will be transferred via ambulance to [facility] in order to undergo short-term rehab. 2. Activity as tolerated. 3. An 1800 calorie, ADA diet. 4. Medications: Acetaminophen 650 mg q.6 hours p.r.n. joint pain, Coreg 3.125 mg b.i.d., DDAVP 0.01% nasal spray 1 mL intranasal b.i.d., Aricept 5 mg daily, Lasix 40 mg daily, Humulin 70/30 with 10 units subcutaneously b.i.d. with meals. PHYSICAL EXAMINATION: This is an elderly, frail, 79-year-old, -[place] lady in no apparent distress. She is afebrile. Vital signs are stable. CV: Regular rate and rhythm. Lungs: Clear.: Abdomen: Soft, nontender, with active bowel sounds. No hepatosplenomegaly. No abdominal bruits. Neurologic: She arouses to verbal stimuli. Speech is fluent. She knows that she lives in [place], [place]. She is oriented to name. She can easily identify her children. She moves all extremities grossly. HOSPITAL COURSE: Ms. Alvarado was admitted to [facility] with metabolic encephalopathy. She had recently been hospitalized at [facility] with UTI with sepsis. Her initial urinalysis was abnormal. She was started on broad-spectrum antibiotics pending cultures. Urine cultures grew out yeast. Blood cultures were negative. IV antibiotics were discontinued. She was treated with a prolonged course of Diflucan. An EEG was performed and demonstrated no obvious seizure activity. We tried a trial of Keppra without significant improvement in her symptoms. CT scan demonstrated chronic white matter changes. MRI of the brain demonstrated increased white matter changes in the frontal and parietal lobes. There did not appear to be any evidence of meningitis. She had no fever or chills, nuchal rigidity, and we did not feel that a spinal tap was indicated. Electrolytes were corrected. At baseline, she is confused and disoriented. She has periods of confusion. She has periods of lucidity where she is more awake and interactive with family. We have started Aricept 5 mg daily and we will titrate upward as tolerated. She does have a history of type 2 insulin-dependent diabetes mellitus complicated by polyneuropathy. We initially treated her with pattern sugars and a Humulin R sliding scale. We then gave her Humalog on a p.r.n. basis. She is still requiring assistance with eating. We resumed her Novolin 70/30 at a lower dosage of 10 units subcutaneously b.i.d. Sugars were consistently in the range of 150 to 200. She has a history of diabetes insipidus. She was continued on DDAVP. Serum sodium remained normal during her hospitalization. Having reached maximum hospital benefit, the patient was discharged in stable condition. cc: Yanely Alba MD
== END 2019-07-21 10:59 | DRG 884 ==
LOC: P.ED 15:04 → 4N 07-02 07:48
PROVIDERS: ADMIT Internal Medicine; ATTEND Internal Medicine

== ENCOUNTER 2019-08-20 03:39 | Inpatient (IN) ==
[2019-08-20] MEDS ORDERED: GLUCAGON ONE (03:47)
[2019-08-20] MEDS ORDERED: D50W SYRINGE ONE (03:52)
[2019-08-20] MEDS ORDERED: D50W SYRINGE IV ONE ×3 (04:03→08:48)
[2019-08-20 04:08] LABS: BASO# 0.03 X1000 (0.0-0.2); BASO% 0.3 % (0.0-0.8); EOS# 0.16 X1000 (0.0-0.7); EOS% 1.4 % (0.0-10.0); HEMATOCRIT 35.2 % (37.0-47.0); HEMOGLOBIN 11.9 g/dL (12.0-16.0); IMM GRAN# 0.02 X1000 (0.0-0.04); IMM GRAN% 0.2 % (0.0-0.5); LYMPH% 29.3 % (20.5-51.1); MCHC 33.8 g/dL (33-37); MCV 85.6 FL (81-99); MONO# 0.95 X1000 (0.11-0.59); MONO% 8.2 % (1.7-9.3); MPV 10.5 FL (7.4-10.4); NEUT# 7.04 X1000 (1.4-6.5); NEUT% 60.6 % (42.2-75.2); PLT 231 X1000 (130-400); RBC 4.11 XMIL (4.2-5.4); RDW 14.3 % (11.5-14.5)
[2019-08-20 04:23] LABS: AGAP 8; ALB/GLOB RATIO 1.2; ALBUMIN 2.9 g/dL (3.5-5.0); ALKALINE PHOSPHATASE 63 U/L (32-104); BUN 6 mg/dL (8-22); CHLORIDE 102 mmol/L (98-107); COSMO 277; CREATININE 0.4 mg/dL (0.5-0.9); ESTIMATED GFR > 60; GLUCOSE 193 mg/dL (70-104); GOT 15 U/L (10-30); GPT 10 U/L (10-36); SODIUM 137 mmol/L (136-145); TCO2 27 mmol/L (25-35); TOTAL BILIRUBIN 0.25 mg/dL (0.20-1.00); TOTAL PROTEIN 5.4 g/dL (6.3-8.3)
[2019-08-20 05:07] LABS: URINE SOURCE CATH
[2019-08-20 05:11] LABS: BILIRUBIN URINE NEGATIVE (NEGATIVE); BLOOD URINE SMALL (NEGATIVE); COLOR STRAW; GLUCOSE URINE 300 mg/dL (NEGATIVE); KETONE URINE NEGATIVE (NEGATIVE); LEUKOCYTES URINE LARGE (NEGATIVE); NITRITE URINE NEGATIVE (NEGATIVE); PROTEIN URINE TRACE mg/dL (NEGATIVE); SP GRAVITY URINE 1.005; TURBIDITY URINE HAZY (CLEAR); UROBILINOGEN URINE NORMAL (NORMAL)
[2019-08-20 05:13] LABS: UR EPITHELIAL CELLS <10 /HPF (<10); URINE BACTERIA 2+ /HPF; URINE RBC <10 /HPF (<10); URINE WBC TNTC /HPF (<10)
[2019-08-20] MEDS ORDERED: VERSED IV ONE ×3 (05:24→05:45)
[2019-08-20] MEDS ORDERED: VERSED ONE (05:33)
[2019-08-20] MEDS: VERSED IV ONE (05:40)
[2019-08-20 05:42] LABS: ALLEN TEST YES; BE 2.2 mmoll (-3.0-3.0); BLOOD TYPE ARTERIAL; HCO3-(ACT) 26.6 mmoll (20.0-26.0); O2(CT) 20.2 mL/dL (15.0-23.0); O2HB 95.7 % (95.0-99.0); PCO2(98.6) 34 mmHg (35-45); PO2(98.6) 90 mmHg (60-100); SAMPLE BLOOD; SAO2 99.2 % (95.0-100.0); pH(98.6) 7.48 (7.35-7.45)
[2019-08-20 05:43] LABS: MODALITY ROOM AIR
--- NOTE | 2019-08-20 06:03 | Diag Imaging Result Doc PS360 ---
EXAM: CHEST-PORTABLE HISTORY: syncope/seizure TECHNIQUE: Single view COMPARISON: None. FINDINGS: The lungs are well expanded. The heart is not enlarged. There are mild increased interstitial markings. No consolidation. No effusion identified. IMPRESSION: Mild increased interstitial markings believed to be minimal pulmonary edema. Electronically signed by Valentin Barrios 08/20/2019 6:01 AM
--- NOTE | 2019-08-20 06:47 | PROVIDER DOCUMENTATION ---
HPI-General Adult - General Chief Complaint: Low Blood Sugar Stated Complaint: seizure Time Seen by Provider: 08/20/19 04:00 Source: EMS Allergies/Adverse Reactions: Patient Allergies Allergy/AdvReac Type Severity Reaction Status Date / Time Unable to Assess Allergy Verified 08/20/19 05:13 Home Medications: Home Medication List Medication Instructions Recorded Confirmed Last Taken Type Unobtainable [Home Meds 08/20/19 08/20/19 Unknown History Unobtainable] - History of Present Illness -Gen Adult Nature of Presenting Problems: EMS TELLS US THEY WERE CALLED TO HOME BY FAMILY FOR PT SEIZING. PT ACTIVELY SEIZING / TONIC-CLONIC AND FAMILY COMMITED TO FOLLOW TO [facility]. O FAMILY OF 645. FAMILY WAS REACHED BY PHONE AND RACHEAL INSTRUCTED FIRMLY THAT FAMILY COME TO ER TO ASSIST HX AND MEDICATIONS LIST. PT PROVED TOHAVE FSBS OF 25 IN ROUTE. NO IV ESTABLISHED. PT OBTUNDED ON ARRIVAL. REPORTEDLY HAS HX OF SEIZURES. Review of Systems - Adult - REVIEW OF SYSTEMS - ADULT ROS:: unobtainable per condition Constitutional: reports: no symptoms reported, see HPI. denies: fever Past History - Adult - PAST MEDICAL HISTORY-ADULT Review of Records: reports: Nursing Assessment Review, Medications Reviewed, Social history reviewed & non-contributory. Major Childhood Illnesses: reports: denies history Cardiovascular: reports: denies history Respiratory: reports: denies history Gastrointestinal: reports: denies history Obstetrical/Gynecological: reports: denies history Genitourinary: reports: denies history Musculoskeletal: reports: denies history Neurological: reports: denies history Endocrine/Immune: reports: denies history Other Conditions: reports: denies history Physical Exam-General - PHYSICAL EXAM-ADULT Initial Vital Signs Reviewed: Yes - CONSTITUTIONAL General Appearance: obtunded - EYES Eyes: PERRL/EOMI - HEAD, EARS, NOSE, MOUTH & THROAT HENMT: normocephalic/atraumatic, moist mucous membranes - NECK Neck: full range of motion, supple - RESPIRATORY Respiratory: chest non-tender, lungs clear, normal breath sounds. negative: respiratory distress - CARDIOVASCULAR Cardiovascular: regular rate, rhythm, no murmur - GASTROINTESTINAL (ABDOMEN) Abdominal Exam: non tender, soft - MUSCULOSKELETAL Extremity: normal range of motion, non-tender, no pedal edema, normal capillary refill - SKIN Integumentary: normal color, normal turgor, warm/dry - NEUROLOGIC Neurologic: negative: motor weakness - PSYCHIATRIC Psych/Mental Status: other (INITALLY OBTUNDED AND POORLY RESPONSIVE WHEN BS 317 WITHIN 15 MIN OR ER VIST. BY 22 MIN IN ER, PT MOANING, THRASHING ABUT WITH ALL 4 EXTREMITIES, NO FOCAL WEAKNESS BUT NO VERBAL RESPONE TO QUESTION/COMMANDS.). negative: normal mood/affect, normal thought content, oriented x 3 Progress - PLAN OF CARE/RESULTS Progress/Plan/Lab Results: Vital Signs - 8 hr 08/20/19 04:09 08/20/19 05:45 Temperature 96.7 F L 97.1 F L Pulse Rate 70 97 H Respiratory Rate 14 15 Blood Pressure 125/69 133/88 O2 Sat by Pulse Oximetry 100 99 Laboratory Results - last 24 hr 08/20/19 08/20/19 08/20/19 03:50 03:50 03:50 WBC 11.60 H RBC 4.11 L Hgb 11.9 L Hct 35.2 L MCV 85.6 MCH 29.0 MCHC 33.8 RDW Std Deviation 14.3 Plt Count 231 MPV 10.5 H Immature Gran % (Auto) 0.2 Neut % (Auto) 60.6 Lymph % (Auto) 29.3 [place] % (Auto) 8.2 Eos % (Auto) 1.4 Baso % (Auto) 0.3 Immature Gran # (Auto) 0.02 Neut # (Auto) 7.04 H Lymph # (Auto) 3.40 [place] # (Auto) 0.95 H Eos # (Auto) 0.16 Baso # (Auto) 0.03 Specimen Type Sample Site pH pCO2 pO2 HCO3 Base Excess Oxyhemoglobin ABG O2 Sat (Calculated) ABG O2 Saturation ABG Carboxyhemoglobin ABG Methemoglobin Romeo Test A-a O2 Difference Total Hemoglobin Lactate Blood Gas Modality FiO2 % Sodium 137 Potassium 4.0 Chloride 102 Carbon Dioxide 27 Anion Gap 8 BUN 6 L Creatinine 0.4 L Estimated GFR/1.73 m2 > 60 BUN/Creatinine Ratio 15 Glucose 193 H POC Glucose Calculated Osmolality 277 Calcium 8.0 L Total Bilirubin 0.25 AST 15 ALT 10 Alkaline Phosphatase 63 Ammonia Troponin T High Sens Total Protein 5.4 L Albumin 2.9 L Globulin 2.5 Albumin/Globulin Ratio 1.2 Plasma Lactate 0.7 Free T4 Urine Source Urine Color Urine Turbidity Urine pH Ur Specific [place] Urine Protein Ur Glucose (Stick) Ur Ketones (Stick) Urine Blood Urine Nitrite Urine Bilirubin Urobilinogen Dipstick Urine Leukocytes Urine WBC (Auto) Urine RBC (Auto) U Epithel Cells (Auto) Urine Bacteria (Auto) Acetone Level 08/20/19 08/20/19 08/20/19 03:50 03:50 03:50 WBC RBC Hgb Hct MCV MCH MCHC RDW Std Deviation Plt Count MPV Immature Gran % (Auto) Neut % (Auto) Lymph % (Auto) [place] % (Auto) Eos % (Auto) Baso % (Auto) Immature Gran # (Auto) Neut # (Auto) Lymph # (Auto) [place] # (Auto) Eos # (Auto) Baso # (Auto) Specimen Type Sample Site pH pCO2 pO2 HCO3 Base Excess Oxyhemoglobin ABG O2 Sat (Calculated) ABG O2 Saturation ABG Carboxyhemoglobin ABG Methemoglobin Romeo Test A-a O2 Difference Total Hemoglobin Lactate Blood Gas Modality FiO2 % Sodium Potassium Chloride Carbon Dioxide Anion Gap BUN Creatinine Estimated GFR/1.73 m2 BUN/Creatinine Ratio Glucose POC Glucose Calculated Osmolality Calcium Total Bilirubin AST ALT Alkaline Phosphatase Ammonia Troponin T High Sens 27 H* Total Protein Albumin Globulin Albumin/Globulin Ratio Plasma Lactate Free T4 1.06 Urine Source Urine Color Urine Turbidity Urine pH Ur Specific [place] Urine Protein Ur Glucose (Stick) Ur Ketones (Stick) Urine Blood Urine Nitrite Urine Bilirubin Urobilinogen Dipstick Urine Leukocytes Urine WBC (Auto) Urine RBC (Auto) U Epithel Cells (Auto) Urine Bacteria (Auto) Acetone Level NEGATIVE 08/20/19 08/20/19 08/20/19 04:08 04:40 04:57 WBC RBC Hgb Hct MCV MCH MCHC RDW Std Deviation Plt Count MPV Immature Gran % (Auto) Neut % (Auto) Lymph % (Auto) [place] % (Auto) Eos % (Auto) Baso % (Auto) Immature Gran # (Auto) Neut # (Auto) Lymph # (Auto) [place] # (Auto) Eos # (Auto) Baso # (Auto) Specimen Type Sample Site pH pCO2 pO2 HCO3 Base Excess Oxyhemoglobin ABG O2 Sat (Calculated) ABG O2 Saturation ABG Carboxyhemoglobin ABG Methemoglobin Romeo Test A-a O2 Difference Total Hemoglobin Lactate Blood Gas Modality FiO2 % Sodium Potassium Chloride Carbon Dioxide Anion Gap BUN Creatinine Estimated GFR/1.73 m2 BUN/Creatinine Ratio Glucose POC Glucose 316 H Calculated Osmolality Calcium Total Bilirubin AST ALT Alkaline Phosphatase Ammonia 34 Troponin T High Sens Total Protein Albumin Globulin Albumin/Globulin Ratio Plasma Lactate Free T4 Urine Source CATH Urine Color STRAW Urine Turbidity HAZY Urine pH 8.0 Ur Specific [place] 1.005 Urine Protein TRACE A Ur Glucose (Stick) 300 A Ur Ketones (Stick) NEGATIVE Urine Blood SMALL A Urine Nitrite NEGATIVE Urine Bilirubin NEGATIVE Urobilinogen Dipstick NORMAL Urine Leukocytes LARGE A Urine WBC (Auto) TNTC A Urine RBC (Auto) <10 U Epithel Cells (Auto) <10 Urine Bacteria (Auto) 2+ Acetone Level 08/20/19 08/20/19 05:19 05:31 WBC RBC Hgb Hct MCV MCH MCHC RDW Std Deviation Plt Count MPV Immature Gran % (Auto) Neut % (Auto) Lymph % (Auto) [place] % (Auto) Eos % (Auto) Baso % (Auto) Immature Gran # (Auto) Neut # (Auto) Lymph # (Auto) [place] # (Auto) Eos # (Auto) Baso # (Auto) Specimen Type ARTERIAL Sample Site R RADIAL pH 7.48 H pCO2 34 L pO2 90 HCO3 26.6 H Base Excess 2.2 Oxyhemoglobin 95.7 ABG O2 Sat (Calculated) 20.2 ABG O2 Saturation 99.2 ABG Carboxyhemoglobin 2.50 ABG Methemoglobin 1.0 Romeo Test YES A-a O2 Difference 17.0 Total Hemoglobin 15.0 Lactate 1.40 Blood Gas Modality ROOM AIR FiO2 % 21.0 Sodium Potassium Chloride Carbon Dioxide Anion Gap BUN Creatinine Estimated GFR/1.73 m2 BUN/Creatinine Ratio Glucose POC Glucose 213 H Calculated Osmolality Calcium Total Bilirubin AST ALT Alkaline Phosphatase Ammonia Troponin T High Sens Total Protein Albumin Globulin Albumin/Globulin Ratio Plasma Lactate Free T4 Urine Source Urine Color Urine Turbidity Urine pH Ur Specific [place] Urine Protein Ur Glucose (Stick) Ur Ketones (Stick) Urine Blood Urine Nitrite Urine Bilirubin Urobilinogen Dipstick Urine Leukocytes Urine WBC (Auto) Urine RBC (Auto) U Epithel Cells (Auto) Urine Bacteria (Auto) Acetone Level Orders Category Date Time Status Cardiac Monitoring DIRECTED Care 08/20/19 04:00 Active Wick Cath Insertion ORDERED Care 08/20/19 04:04 Active Saline Loc NOW Care 08/20/19 04:00 Active CHEST-PORTABLE [RAD] Stat Exams 08/20/19 04:[address] HEAD W/O CONTRAST [CT] Stat Exams 08/20/19 04:03 Taken ABG [RESP] Routine Lab 08/20/19 05:31 Completed ACETONE SERUM [CHEM] Stat Lab 08/20/19 03:50 Completed AMMONIA [CHEM] Stat Lab 08/20/19 04:40 Completed BLOOD CULTURE [BLDCUL] Stat Lab 08/20/19 04:45 Received CBC WITH ELECTRONIC DIFF [HEME] Stat Lab 08/20/19 03:50 Completed CMP [COMPREHENSIVE METABOLIC PANEL] [CHEM] Stat Lab 08/20/19 03:50 Completed FREE T4 Stat Lab 08/20/19 03:50 Completed LACTATE, PLASMA [CHEM] Stat Lab 08/20/19 03:50 Completed TROPONIN T HIGH SENSITIVITY Stat Lab 08/20/19 03:50 Completed URINALYSIS W/POSS RFLX CULT [URINALYSIS] Stat Lab 08/20/19 04:57 Completed Dextrose 50% Syringe [D50w Syringe] Med 08/20/19 03:52 Discontinued 50 ml .ROUTE .STK-MED ONE Dextrose 50% Syringe [D50w Syringe] Med 08/20/19 04:03 Discontinued 50 ml IV NOW ONE Dextrose 50% Syringe [D50w Syringe] Med 08/20/19 04:04 Discontinued 50 ml IV NOW ONE Glucagon Med 08/20/19 03:47 Discontinued 1 mg .ROUTE .STK-MED ONE Midazolam [Versed] Med 08/20/19 06:00 Discontinued 2 mg IV NOW ONE Midazolam [Versed] Med 08/20/19 05:33 Discontinued 5 mg .ROUTE .STK-MED ONE EKG [EKG] Stat Ther 08/20/19 04:00 Ordered Result Diagrams: 08/20/19 03:50 08/20/19 03:50 - REASSESSMENT Reassessment #1 Time Reassessed: 06:51 Status: improving (CONTINUES WITH THRASHING MOVEMENTS AND NO RESONSE TO VERBAL STIMULI, CT HEAD W/O ACUTE CHANGES OR BLEED. HYPOGLYCEMIA CORRECTED. NO H YPONATREMIA, NOTE UTI, LACTIC NOT ELEVATED.) - CT/MRI 1 MRI Study: Brain Impression: Normal (NO MASS OR BLEED) - CONSULTS/PCP/HOSPITALIST Notification #1 *Consult/PCP/Hospitalist*: DR RODRIGUEZ Time Discussed: 06:40 Consult Disposition: Admit Departure - Departure Date of Disposition Decision: 08/20/19 Time of Disposition Decision: 06:55 DIAGNOSIS: Hypoglycemia, Seizure, UTI (urinary tract infection) Altered mental status Qualifiers: Altered mental status type: delirium Qualified Code(s): R41.0 - Disorientation, unspecified Disposition: ADMITTED INPATIENT 09 Certified Medical Emergency: Emergent Condition: Fair Referrals and Follow-Ups: None,PCP [Primary Care Provider] - - Critical Care Note This patient required my direct & personal management of CC.: Yes Total Time (mins): 35 Critical Care Statement: This patient required my direct personal management to treat or rule out processes, the absence of which, could potentiallly result in sudden, clinically significant life or limb threatening deterioration. Attestation - Physician/ AKI Attestation The physician spent face to face time with patient:: Yes Advanced Practice Provider documentation review:: Supervising physician onsite and consulted in the evaluation and care of this patient. The physician did have a face to face encounter with the patient.
[2019-08-20] MEDS ORDERED: ROCEPHIN 1 GM in NS 50 ML IV ONE (06:53)
[2019-08-20] MEDS ORDERED: D5 NS 1,000 ML IV ONE (06:54)
--- NOTE | 2019-08-20 07:34 | Diag Imaging Result Doc PS360 ---
EXAM: CT HEAD W/O CONTRAST 08/20/2019 HISTORY: unresponsive TECHNIQUE: This exam was performed using automated exposure control, adjustment of mA or kV according to patient size, and/or use of iterative reconstruction technique. COMMENT: There are calcifications in the vertebral arteries and internal carotid arteries. There are patchy periventricular white matter lucencies and some subcortical white matter lucency particularly in the posterior parietal lobe on the left. There is no evidence of mass effect, bleed, or abnormal extra-axial fluid collection. There is some calcification in the globus pallidus bilaterally. The calvarium is intact. There is some hyperostosis frontalis interna. The visualized paranasal sinuses are clear. No previous studies are available for comparison at this time, the patient being anonymous. IMPRESSION: Chronic ischemic microvascular white matter disease. No definite evidence of acute intracranial disease. Electronically signed by Lake Garcia 08/20/2019 7:32 AM
--- NOTE | 2019-08-20 07:43 | EKG Report ---
Test Performed on : 08/20/2019 05:46:03 AM Test Reason : unresoponsive Blood Pressure : / mmHG Vent. Rate : 102 BPM Atrial Rate : 102 BPM P-R Int : 146 ms QRS Dur : 102 ms QT Int : 450 ms P-R-T Axes : 067 017 037 degrees QTc Int : 586 ms Sinus tachycardia. with fusion complexes Possible Lateral infarct , age undetermined ST & T wave abnormality, consider inferior ischemia Abnormal ECG No previous ECGs available Unconfirmed Result
[2019-08-20] MEDS ORDERED: ZOFRAN IV PRN (08:48)
[2019-08-20] MEDS ORDERED: TOBRAMYCIN 80 MG in NS 50 ML IV ONE (09:56)
[2019-08-20] MEDS: KEPPRA 500 MG in NS 100 ML IV SCH ×2 (11:03→22:37)
--- NOTE | 2019-08-20 12:07 | PROGRESS NOTE ---
DATE: 08/20/2019 SUBJECTIVE: Ms. Mayela Alvarado is an 79-year-old lady with a history of multiple medical problems including hypertension, type 2 insulin-dependent diabetes mellitus, mild cognitive impairment who is well known to me. Apparently, she started having generalized tonic colonic seizures at home. The family called EMS, who transported her to [facility]. She was appropriately treated in the ER with cessation of seizure activity. She is still unresponsive. She does not respond to verbal or painful stimuli. CT scan of the brain demonstrated chronic white matter changes but no obvious mass or acute stroke. Breathing appears to be in labor. She is maintaining O2 saturations of 95% to 99 percent on room air. Her initial urinalysis was positive. Urine and blood cultures are pending. She had a mild leukocytosis. OBJECTIVE: Vital Signs: Temperature 97.1 degrees, pulse 103, respiratory rate 21, BP 122/71. Cardiovascular: Tachycardic, regular S1-S2. Lungs: Clear. Abdomen: Soft, nontender with active bowel sounds. Neurologic: She is unresponsive to verbal or painful stimuli. ASSESSMENT AND PLAN: 1. New onset generalized tonic colonic seizures. Interestingly, during her last hospitalization we had performed an electroencephalogram to rule out subclinical seizures for changes in mental status. I suspect that she is still postictal. Given the number and severity of the seizures, I am not sure for how long this postictal state could last. We will maintain seizure precautions and I will begin Keppra 500 mg IV q.12 hours. I suspect that she will need a contrasted MRI at some point in time. 2. Urinary tract infection. We will continue Rocephin and I will bolus her with tobramycin 80 mg IV x1 dose pending blood and urine cultures. cc: Yanely Alba MD
--- NOTE | 2019-08-20 12:52 | HISTORY AND PHYSICAL ---
PRIMARY CARE PROVIDER: Unknown. CHIEF COMPLAINT: Per ED record, low blood sugar and seizure. HISTORY OF PRESENT ILLNESS: Per EMR, the patient is an elderly female. EMS was called to the home by family for patient having a seizure, tonic clonic activity. The patient was found to have a fingerstick blood sugar of 25 en route obtunded on arrival. Reportedly, she has a history of seizures. Apparently, the family had committed to follow EMS to the hospital. However, no family has been seen. They were reached by phone. I believe they are to be here after 9:00 in the morning. The patient was given 2 units of D50, 2 mg of Versed, and started on a D5 drip. She was given IV Rocephin for urinary tract infection. Head CT is negative. PAST MEDICAL HISTORY: Unknown. PAST SURGICAL HISTORY: Unknown. SOCIAL HISTORY: Unknown. FAMILY HISTORY: Unknown. REVIEW OF SYSTEMS: Hard to obtain secondary to the patient being altered. She does respond to painful stimuli. She does not follow commands or answer any questions. PHYSICAL EXAMINATION: VITAL SIGNS: Temperature 97.1 degrees, heart rate 97, respirations 16, blood pressure 133/88, and O2 is 99%. GENERAL: Patient is an elderly female who is brought in by EMS who is lying on the stretcher. She responds to painful stimuli. She does not follow commands or answer any questions. She still remains altered. HEENT: Atraumatic, normocephalic. Pupils are slow. Her pupils are sluggish and pin point. Mucous membranes are dry. CARDIOVASCULAR: S1, S2 appreciated. No murmurs, gallops, or rubs noted. RESPIRATORY: Lung sounds with some scattered rhonchi bilaterally decreased in the bases. GI: Appeared to be soft, nontender and nondistended. Hypoactive bowel sounds. EXTREMITIES: Lower extremities with generalized edema. NEUROLOGIC: Again, she responds to painful stimuli but once awake does not follow any commands. Remains altered, and does not answer any questions. DIAGNOSTIC DATA: Head CT with chronic ischemic microvascular white matter disease. No definite evidence of acute intracranial disease. EKG sinus tachycardia with Qs and complexes, ST and T- wave abnormalities, and 102 beats per minute. Chest x-ray mild increase in interstitial markings believed to be mild pulmonary edema. LABORATORY DATA: White count 11, hemoglobin and hematocrit 4 and 11, and platelet 231,000. ABG: A pH 7.48, pCO2 34, base excess 2.2. O2 saturation was 99% on room air. Sodium 137, potassium 4.0, BUN 6, and creatinine 0.4. Blood glucose is currently 193, AST 15, and ALT 10. Troponin is 27. Plasma lactate 0.7. Urinalysis 2+ bacteria, too numerous to count WBCs, large leukocytes. Acetone level was negative. ASSESSMENT AND PLAN: 1. Hypoglycemia. Unsure if the patient is diabetic at this time. The patient will continue on a D5 drip with q.1 hour fingerstick blood sugars, and placed on hypoglycemia protocol. 2. Seizures with reported history of seizures. Unsure of what medication she is on. No family at bedside; they are reported to be coming in after 9:00 in the morning. We will consult Neurology. Place her on seizure precautions in the ICU. Head CT does not show anything acute. We will continue with Ativan 1 to 2 mg q.1 hour. 3. Urinary tract infection. We will continue with IV Rocephin and await urine culture. 4. Further recommendation to follow physician evaluation, laboratory and diagnostic data. Dictated by YANET Belle for Ruth Cody MD cc: MD Yanely Aleman MD I performed a face to face encounter on the patient. I reviewed all labs and imaging on the patient. I agree with the H&P as dictated. [facility]
[2019-08-20] MEDS: ATIVAN IV PRN (20:08)
--- NOTE | 2019-08-20 20:09 | PROGRESS NOTE ---
DATE: 08/20/2019 SUBJECTIVE: Ms. Alvarado was admitted to [facility] with grand mal seizures. She has a persistent postictal state without any further seizure activity. She now tries to push your hand away when you perform a sternal rub. Otherwise, she does not open her eyes or follow any commands. OBJECTIVE: Vital signs: Temperature 98.1 degrees, pulse 102, respirations 13, BP 119/66. Cardiovascular: Regular rate and rhythm. Lungs: Clear. Abdomen: Soft, nontender with active bowel sounds. ASSESSMENT AND PLAN: New onset generalized tonic colonic seizures. We will continue seizure precautions and Keppra 500 mg IV q.12 hours. I will most likely repeat an EEG and arrange for an MRI of the brain in the morning. cc: Yanely Alba MD
[2019-08-21] MEDS: ATIVAN IV PRN (03:25)
[2019-08-21 06:19] LABS: BASO# 0.02 X1000 (0.0-0.2); BASO% 0.3 % (0.0-0.8); EOS# 0.07 X1000 (0.0-0.7); EOS% 0.9 % (0.0-10.0); HEMATOCRIT 38.1 % (37.0-47.0); HEMOGLOBIN 12.7 g/dL (12.0-16.0); IMM GRAN# 0.02 X1000 (0.0-0.04); IMM GRAN% 0.3 % (0.0-0.5); LYMPH# 2.59 X1000 (1.2-3.4); LYMPH% 33.5 % (20.5-51.1); MCH 28.9 PG (27-31); MCHC 33.3 g/dL (33-37); MCV 86.6 FL (81-99); MONO% 7.8 % (1.7-9.3); MPV 10.4 FL (7.4-10.4); NEUT# 4.43 X1000 (1.4-6.5); NEUT% 57.2 % (42.2-75.2); PLT 253 X1000 (130-400); RDW 14.9 % (11.5-14.5); WBC 7.73 X1000 (4.8-10.8)
[2019-08-21] MEDS: ROCEPHIN 1 GM in NS 50 ML IV SCH (06:23)
[2019-08-21 06:43] LABS: AGAP 12; ALB/GLOB RATIO 0.8; ALKALINE PHOSPHATASE 75 U/L (32-104); BUN 5 mg/dL (8-22); CALCIUM 8.9 mg/dL (8.8-10.2); CHLORIDE 111 mmol/L (98-107); COSMO 299; CREATININE 0.6 mg/dL (0.5-0.9); ESTIMATED GFR > 60; GLUCOSE 259 mg/dL (70-104); GOT 20 U/L (10-30); GPT 12 U/L (10-36); POTASSIUM 4.3 mmol/L (3.5-5.1); SODIUM 147 mmol/L (136-145); TCO2 24 mmol/L (25-35); TOTAL BILIRUBIN 0.61 mg/dL (0.20-1.00); TOTAL PROTEIN 6.6 g/dL (6.3-8.3)
--- NOTE | 2019-08-21 09:18 | PROGRESS NOTE ---
DATE: 08/21/2019 SUBJECTIVE: Mrs. Mayela Alvarado was admitted to [facility] with multiple generalized tonic/ colonic seizures. She has had no further seizure activity overnight. Neurologically her baseline has changed very little since admission. She withdraws to noxious stimuli and groans in discomfort. She does not open her eyes or respond to verbal stimuli. Blood sugars are ranging from 219 to 293. OBJECTIVE: Temperature 97.5 degrees, pulse 85, respirations 14, BP 130/92. CV regular rate and rhythm. Lungs clear. Abdomen soft, nontender with active bowel sounds. Neuro she withdrawals her feet to noxious stimuli. She withdraws to a sternal rub. She does not open her eyes to verbal stimuli. LABORATORY DATA: Various laboratory studies were obtained. A BMP demonstrated the following: Sodium 147, potassium 4.3, chloride 111, CO2 24, BUN 5, creatinine 0.6, glucose 259. A CBC demonstrated a white count 7.7, hemoglobin 12.7, hematocrit 38.1, and a platelet count of 253,000. ASSESSMENT AND PLAN: 1. Metabolic encephalopathy. She had multiple general generalized tonic colonic seizures I suspect that there she still has. Given the number of seizures I anticipate that she will have a prolonged postictal state. We will continue to monitor her closely in ICU with seizure precautions. I will arrange for 48 hour EEG as well as an MRI of the brain with and without contrast. We will titrate upward on the intravenous Keppra as needed. 2. 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 Blood sugars are fluctuating. We will continue pattern sugars and a Humulin R sliding scale. 3. Diabetes insipidus. Serum sodium is elevated today. We will check a urine osmolality. I will resume DDAVP. 4.UTI-I will continue iv Rocephin and Tobramycin pending cultures. cc: Yanely Alba MD [facility] CENTERKeny
--- NOTE | 2019-08-21 10:48 | Diag Imaging Result Doc PS360 ---
EXAM: MRI BRAIN W/WO CONTRAST INDICATION: new onset seizures COMPARISON: CT head dated 08/20/2019. No prior MRI brain is available for comparison. FINDINGS: There is focal encephalomalacia involving the medial left occipital lobe. There is a small chronic lacunar infarct involving the hannah. There is no evidence of acute infarct. There is patchy T2/FLAIR hyperintensity in the subcortical and periventricular white matter suggesting moderate microangiopathy. There is no discrete intracranial mass, mass effect, or intracranial hemorrhage. There is no evidence of abnormal intracranial enhancement. The surrounding soft tissues and bony structures are essentially unremarkable. IMPRESSION: Suggestion of white matter microangiopathy and mild left occipital encephalomalacia. No definite acute intracranial pathology. Electronically signed by Judah Vasques 08/21/2019 10:46 AM
[2019-08-21] MEDS: KEPPRA 500 MG in NS 100 ML IV SCH (10:55)
[2019-08-21] MEDS: HUMALOG SUBQ SCH ×2 (16:21→21:21)
[2019-08-21] MEDS ORDERED: TOBRAMYCIN 80 MG in NS 50 ML IV ONE (16:53)
--- NOTE | 2019-08-21 17:17 | CONSULTATION ---
DATE OF CONSULTATION: 08/21/2019 Ms Alvarado is 79 years old and she had apparent clinically definite generalized seizure. This was associated with significant hypoglycemia, blood sugar reported in the 20s. She had previously had some irregular jerking and shaking movements, which were not typical of generalized clonic activity. Brain MRI shows several areas of encephalomalacia but scan today does not show anything definitely changed compared to scan from last month. There is no new ischemic infarction, area of bleeding, mass, or other likely focus for seizure. Lab shows her blood sugars have been corrected and she has not had any further hypoglycemia. There is slight hypernatremia, nothing else remarkable on chemistry profile. Initial WBC was 11,600, down to 7700 today. Urine drug screen was all negative a few months ago, not checked this admission. She has continued very poorly responsive since admission. There has not been significant clinical change noted during more than 24 hours of observation here. She has received a dose of levetiracetam 500 mg. She received lorazepam 2 mg twice overnight. I do not see anything else on the medication list that would contribute to encephalopathy. She has been afebrile. Recent systolic blood pressures have ranged 100s-130s. There is past history of diabetes insipidus, diabetes mellitus, hypertension, depression, chronic dementia, prior delirium. On exam, Ms. Alvarado is supine, breathing regularly, not moving spontaneously. With moderate noxious stimulation, she slightly extended her arms but did not rotate them. She did not open eyes to command. With passive eye opening, I observed some restricted lateral extraocular movement. Pupils react to light. Corneal reflexes are brisk bilaterally. Facial motility is diminished but symmetric. Limb tone is symmetric. Plantar response is silent bilaterally. Neck is supple. IMPRESSION: Global encephalopathy, uncertain etiology. There may be multiple factors. There could be post hypoglycemic encephalopathy, postictal encephalopathy, ictal stupor due to ongoing subclinical seizures. EEG will help sort that out. Also, there is baseline cognitive impairment which predisposes her to more dense and protracted encephalopathy with any toxic or metabolic disturbance and so her recovery following seizure and hypoglycemia may be slow and incomplete. Other than the hypoglycemia, I do not see any other significant metabolic problem. As discussed with Dr. Alba, we will get EEG and further plans will depend on that report and on her clinical course. I have empirically increased her levetiracetam dose to 1000 mg q.12 hours in light of her very good renal function. Thanks for asking Neurology to see Ms. Alvarado. cc: MD Yanely Nieves III, MD MTDD
[2019-08-21] MEDS: KEPPRA 1,000 MG in NS 100 ML IV SCH (18:06)
--- NOTE | 2019-08-21 18:17 | PROGRESS NOTE ---
DATE: 08/21/2019 SUBJECTIVE: Ms. Alvarado was admitted to [facility] with status epilepticus. She had multiple generalized tonic-colonic seizures. She has had a prolonged postictal state. She has had no further seizure activity since admission. It was reported that she mumbled a few words with noxious stimuli. An MRI of the brain demonstrated no intracranial masses or bleed. She had diffuse white matter changes. An EEG was obtained, and the results are pending at this time. She has a urinary tract infection. Urine cultures are growing out a gram-negative raymundo. Blood cultures are still pending. She has been on Rocephin and tobramycin. Her white count has dropped from 11,000 to 7000. OBJECTIVE: Vital Signs: Temperature 98 degrees, pulse is 92, respiratory rate 12, BP 120/72. Cardiovascular: Regular rate and rhythm. Lungs: Clear. Abdomen: Soft and nontender with active bowel sounds. Neurologic: She withdraws her feet to noxious stimuli. She does not respond to verbal stimuli. I have not seen any spontaneous movements of her extremities. ASSESSMENT AND PLAN: 1. Generalized tonic colonic seizures. I suspect that she has a prolonged postictal state. Dr. Fuentes increased the Keppra to a 1000 mg IV every 12 hours. We will continue to monitor electrolytes. If she remains stable hemodynamically, I believe she potentially could go to the floor in the morning. 2. Urinary tract infection. We will continue Rocephin and re-bolus her with tobramycin tonight pending urine and blood cultures. 3. Diabetes insipidus. We have resumed the DDAVP. I will check a BMP and a urine osmolality in the morning. cc: Yanely Alba MD
[2019-08-21] MEDS: D50W SYRINGE IV PRN (20:34)
[2019-08-21] MEDS: DDAVP 0.01% NAS SCH (21:34)
--- NOTE | 2019-08-21 22:55 | EEG REPORT ---
DATE: 08/21/2019 COMMENT: This is a digitally recorded EEG on an 79-year-old patient with recent seizure associated with hypoglycemia, persistent poor responsiveness, question of continuing subclinical seizure. FINDINGS: There is low to medium-amplitude polymorphic and rhythmic theta diffusely across the hemispheres. Occasional brief 7 Hz posterior rhythm is present bilaterally with uncertain reactivity to eye opening. There was muscle contraction artifact present intermittently, which does not hinder interpretation. Photic stimulation did not alter the record. No definite epileptiform discharge was identified. INTERPRETATION: Abnormal EEG because of generalized slowing. CORRELATION: This is indicative of a diffuse encephalopathy and is nonspecific. The absence of epileptiform discharges on a single EEG does not exclude a clinical diagnosis of earlier seizure, but there is nothing on this record to suggest ongoing subclinical seizure as the reason for her poor responsiveness. cc: MD Yanely Nieves III, MD MTDKeny
[2019-08-22] MEDS: KEPPRA 1,000 MG in NS 100 ML IV SCH ×2 (05:04→17:05)
[2019-08-22 05:43] LABS: HEMOGLOBIN 13.7 g/dL (12.0-16.0); MCH 29.7 PG (27-31); MCHC 33.4 g/dL (33-37); MCV 88.7 FL (81-99); MPV 10.8 FL (7.4-10.4); RBC 4.62 XMIL (4.2-5.4); RDW 15.5 % (11.5-14.5); WBC 7.9 X1000 (4.8-10.8)
[2019-08-22] MEDS: HUMALOG SUBQ SCH ×4 (06:14→20:49)
[2019-08-22] MEDS: ROCEPHIN 1 GM in NS 50 ML IV SCH (06:15)
[2019-08-22] MEDS: DDAVP 0.01% NAS SCH (20:51)
[2019-08-23] MEDS: KEPPRA 1,000 MG in NS 100 ML IV SCH ×2 (05:39→17:13)
[2019-08-23] MEDS: HUMALOG SUBQ SCH ×4 (07:23→20:45)
[2019-08-23] MEDS: ROCEPHIN 1 GM in NS 50 ML IV SCH (07:45)
--- NOTE | 2019-08-23 12:33 | PROGRESS NOTE ---
DATE: 08/22/2019 SUBJECTIVE: The patient's chart was reviewed. In summary, patient was admitted to [facility] on 08/20/2019. Per report, EMS was called by family members after she suffered a generalized seizure. Upon arrival, blood sugar was noted to be 25. She presented to the emergency department. Patient was given 2 units of D50, 2 mg of Versed, and started on D5 drip. Laboratory data returned concerning for a urinary tract infection. She was started on Rocephin therapy. The patient was admitted to the ICU. Since being in the ICU, patient has experienced prolonged somnolence and mental status changes. Dr. Fuentes was consulted. Global encephalopathy was noted to be of uncertain etiology, but likely multifactorial. EEG was ordered. Levetiracetam was increased to 1000 mg q.12 hours. This morning upon my arrival, patient is minimally interactive. She was, however, able to voice "Good morning" responding to my saying this. No further interaction was identified. She was able to squeeze my hands upon request. A discussion was held with nursing staff. Per report, was a moderate to significant improvement from yesterday. There is no evidence of fevers, chills, nausea, vomiting, shortness of breath or chest discomfort. OBJECTIVE: T-max 98.1 degrees, heart rate 95 to 103, respirations 12 to 18, blood pressure 95 to 122 over 64 to 80.General: Chronically ill appearing, no acute distress. Cardiovascular: Regular rate and rhythm. No significant murmurs, rubs, or gallops. Pulmonary: Clear to auscultation anteriorly. Abdomen: Soft, nontender, nondistended. Positive bowel sounds Extremities: No significant clubbing, cyanosis, or edema. Dermatologic: Evaluation reveals no evidence of rash. LABORATORY DATA: White blood cell count 7.90, hemoglobin 13.7, hematocrit 41.0, platelet count 234,000. ASSESSMENT AND PLAN: 1. Global encephalopathy-I agree with Dr. Fuentes's consultation. This likely is multifactorial with prolonged hypoglycemia and prolonged postictal state being high on the differential. Keppra has been increased to 1000 mg every 12 hours. We will defer EEG evaluation to Dr. Fuentes. Further seizure intervention will be per his discretion. As described above, patient's condition is slightly improved from yesterday. 2. Generalized seizure activity-as described, CT scan did not demonstrate an acute abnormality. We will defer further neurologic testing to Dr. Fuentes/Dr. Alba. We will continue Keppra as described above. There has been no evidence of seizure activity in the last 24 hours. 3. Urinary tract infection-the patient's urine cultures grew Klebsiella pneumoniae. Blood cultures are negative. We will continue Rocephin therapy. 4. Diabetes insipidus-patient will be continued on DDAVP. 5. Hypoglycemia-we will continue on scheduled blood sugars and address as necessary. 6. Nutrition-at this point, with patient's mental status slowly improving we will hold off on any aggressive intervention. Once able, we will start a diet. 7. Disposition -at this point, patient continues to require fdc care in the ICU setting. We will plan transfer to the floor once appropriate. cc: MD Yanely Dupree MD MTDKeny
--- NOTE | 2019-08-23 13:29 | PROGRESS NOTE ---
DATE: 08/23/2019 SUBJECTIVE: Over the course of the last 24 hours, patient's overall condition has been largely unchanged. She continues to rest in bed. Minimal interaction was noted overnight. This morning, upon my arrival, patient was more alert, however very slow to respond. She was alert to person and able to follow commands appropriately. P.o. intake remains very marginal. There has been no evidence of fevers, chills, nausea, vomiting, shortness of breath, or chest discomfort. OBJECTIVE: T-max 100 degrees, heart rate 98 to 104, respirations 11 to 24, blood pressure 101 to 120 over 63 to 82.General: Chronically ill appearing, no acute distress. Cardiovascular: Slightly tachycardic. Regular rhythm. No significant murmurs, rubs, or gallops. Pulmonary: Clear to auscultation anteriorly. Abdomen: Soft, nontender, nondistended. Positive bowel sounds. Extremities: No significant clubbing, cyanosis, or edema. Moves extremities on command. Dermatologic: Evaluation reveals no evidence of rash. LABORATORY DATA: None. ASSESSMENT AND PLAN: 1. Global encephalopathy-I appreciate Dr. Fuentes's consultation. I agree that this likely represents multifactorial etiologies including prolonged hypoglycemia and prolonged postictal state. Additionally, Keppra has been added which also may contribute to her somnolence. For now, we will continue treatment of her seizures as described. We will defer EEG evaluation to Dr. Fuentes. As her symptoms are very slowly improving, we will continue supportive care. 2. Generalized seizure activity-CT scan demonstrated no evidence of acute abnormality. As above, Keppra has been initiated. There has been no evidence of further seizure activity while in the hospital. 3. Urinary tract infection-the patient's culture grew Klebsiella. Blood cultures thus far are negative. We will continue Rocephin therapy. 4. Diabetes insipidus-we will continue DDAVP. 5. Hypoglycemia-we will continue to follow patient with patterned Accu-Cheks. 6. Nutrition-patient currently is taking only sips of water. This is, however, improved from the last 24 to 48 hours. We will initiate Clinimix therapy for now. This will be followed. 7. Disposition-because patient is unable to care for herself and no family members are present, I do feel keeping patient in a closely observed situation is most appropriate. We will continue ICU setting for now. Once she clinically improves, we will plan to transfer to general medicine or step-down unit at that time. cc: MD Yanely Dupree MD
[2019-08-23 14:04] LABS: AGAP 15; ALB/GLOB RATIO 0.8; ALKALINE PHOSPHATASE 81 U/L (32-104); BUN 10 mg/dL (8-22); CALCIUM 9.1 mg/dL (8.8-10.2); CHLORIDE 118 mmol/L (98-107); COSMO 309; CREATININE 0.6 mg/dL (0.5-0.9); ESTIMATED GFR > 60; GLUCOSE 143 mg/dL (70-104); GOT 18 U/L (10-30); GPT 13 U/L (10-36); SODIUM 155 mmol/L (136-145); TCO2 22 mmol/L (25-35)
[2019-08-23] MEDS: SODIUM CHLORIDE 75 MEQ in CLINIMIX E 4.25%-5% SOLUTION 1,000 ML IV SCH (14:45)
[2019-08-23] MEDS: DDAVP 0.01% NAS SCH (20:45)
[2019-08-24] MEDS: KEPPRA 1,000 MG in NS 100 ML IV SCH ×2 (05:12→18:14)
[2019-08-24] MEDS: SODIUM CHLORIDE 75 MEQ in CLINIMIX E 4.25%-5% SOLUTION 1,000 ML IV SCH ×2 (05:57→20:22)
[2019-08-24] MEDS: ROCEPHIN 1 GM in NS 50 ML IV SCH (06:39)
[2019-08-24] MEDS: HUMALOG SUBQ SCH ×4 (06:39→20:56)
[2019-08-24 06:53] LABS: BASO# 0.04 X1000 (0.0-0.2); BASO% 0.4 % (0.0-0.8); EOS# 0.14 X1000 (0.0-0.7); EOS% 1.5 % (0.0-10.0); HEMATOCRIT 41.1 % (37.0-47.0); HEMOGLOBIN 13.2 g/dL (12.0-16.0); LYMPH# 2.43 X1000 (1.2-3.4); LYMPH% 26.3 % (20.5-51.1); MCH 28.7 PG (27-31); MCHC 32.1 g/dL (33-37); MCV 89.3 FL (81-99); MONO# 0.65 X1000 (0.11-0.59); MPV 10.4 FL (7.4-10.4); NEUT# 5.98 X1000 (1.4-6.5); NEUT% 64.8 % (42.2-75.2); PLT 264 X1000 (130-400); RDW 15.1 % (11.5-14.5); WBC 9.24 X1000 (4.8-10.8)
[2019-08-24] MEDS ORDERED: GEODON IM ONE (07:13)
[2019-08-24] MEDS ORDERED: STERILE WATER INJ. INJ ONE (07:13)
[2019-08-24 07:32] LABS: AGAP 13; ALB/GLOB RATIO 0.8; ALKALINE PHOSPHATASE 74 U/L (32-104); BUN 17 mg/dL (8-22); CALCIUM 9.2 mg/dL (8.8-10.2); CHLORIDE 118 mmol/L (98-107); COSMO 317; CREATININE 0.6 mg/dL (0.5-0.9); ESTIMATED GFR > 60; GLUCOSE 278 mg/dL (70-104); GOT 14 U/L (10-30); GPT 11 U/L (10-36); POTASSIUM 3.9 mmol/L (3.5-5.1); SODIUM 154 mmol/L (136-145); TCO2 23 mmol/L (25-35); TOTAL BILIRUBIN 0.34 mg/dL (0.20-1.00); TOTAL PROTEIN 6.9 g/dL (6.3-8.3)
[2019-08-24] MEDS: DDAVP 0.01% NAS SCH ×2 (11:24→20:22)
--- NOTE | 2019-08-24 16:13 | PROGRESS NOTE ---
DATE: 08/24/2019 SUBJECTIVE: Mrs. Alvarado has had a prolonged postictal state following multiple generalized tonic clonic seizures. She is much more awake today. She was more agitated. She had pulled out several IVs. She was trying to get out of bed. She could tell me her name. Blood sugars are ranging from 144 to 238. She denies any polyuria, polydipsia or episodes of symptomatic hypoglycemia. OBJECTIVE: Vital Signs: Temperature 97.1 degrees, pulse 96, respirations 22, blood pressure 110/72. Cardiovascular: Regular rate and rhythm. Lungs: Clear. Abdomen: Soft. Nontender with active bowel sounds. LABORATORY DATA: A urine culture grew out Klebsiella pneumoniae. A BMP demonstrated the following: Sodium 154, potassium 3.9, chloride 118, BUN 17, creatinine 0.6, and glucose 228. ASSESSMENT AND PLAN: 1. Diabetes insipidus. Serum sodium is trending upward. Her serum sodium is 154. I will increase the DDAVP to b.i.d. dosing. Recheck a BMP and urine osmolality in the morning. 2. Type 2 non insulin-dependent diabetes mellitus. We will continue pattern sugars, Humulin R sliding scale. As she is not really eating, I do not want to resume her regular insulin therapy. 3. Generalized clonic tonic seizures. Neurologically she is beginning to wake up. I believe that her postictal course is resolving. Repeat EEG demonstrated no subclinical seizures. We will continue intravenous Keppra. cc: Yanely Alba MD
[2019-08-25] MEDS: KEPPRA 1,000 MG in NS 100 ML IV SCH ×2 (05:06→18:30)
[2019-08-25] MEDS: HUMALOG SUBQ SCH ×4 (05:59→20:31)
[2019-08-25] MEDS: ROCEPHIN 1 GM in NS 50 ML IV SCH (07:42)
[2019-08-25] MEDS: SODIUM CHLORIDE 75 MEQ in CLINIMIX E 4.25%-5% SOLUTION 1,000 ML IV SCH (07:42)
[2019-08-25] MEDS: DDAVP 0.01% NAS SCH ×3 (07:43→20:32)
--- NOTE | 2019-08-25 09:44 | PROGRESS NOTE ---
DATE: 08/25/2019 SUBJECTIVE: Mrs. Alvarado was admitted to [facility] with status epilepticus and recurrent grand mal seizures. She has had a prolonged postictal course. This morning, she seems more interactive. She told me good morning this morning. She could tell me her name and that she was in [place] and she could also tell me the names of her children. She has had no further seizure activity. She denies any dysuria, increased urinary frequency, or low back pain. Urine cultures grew out Klebsiella pneumoniae for which she is taking Rocephin. OBJECTIVE: Her blood sugars continue to fluctuate. Sugars are ranging from 149 to 275. Her p.o. intake is marginal she is afebrile pulse 91, respirations 13, BP 155/84. CV regular rate and rhythm. Lungs clear. Abdomen soft nontender with active bowel sounds. Back no CVA tenderness. ASSESSMENT AND PLAN: 1. Global encephalopathy which I suspect is due to a combination of an underlying urinary tract infection and prolonged postictal phase following status epilepticus. She has had no further seizure activity. We will continue Keppra 1000 mg IV q.12 hours. As she is approaching her baseline neurologically, I will plan to transfer her to the floor. We will consult [facility] for placement options. At this point in time I do not believe that she is strong enough to return home safely. I will discuss that situation with her children. I believe that she potentially is going to need long-term care home care. 2. Urinary tract infection. We will continue Rocephin. Once she is taking p.o. more routinely I will switch her to oral medicines like sulfa or ampicillin. 3. Type 2 insulin-dependent diabetes mellitus. She had significant hypoglycemia, which I believe contributed to the seizures as well as the global encephalopathy. Her intake is still poor. We will advance her to a GI soft diet. When she is eating more consistently I will resume low- dose scheduled insulin. Otherwise, we will continue pattern sugars and a Humulin R sliding scale. cc: Yanely Alba MD
[2019-08-25 10:17] LABS: ESTIMATED GFR > 60
[2019-08-25 10:21] LABS: AGAP 9; BUN 22 mg/dL (8-22); CALCIUM 9.5 mg/dL (8.8-10.2); CHLORIDE 123 mmol/L (98-107); COSMO 322; CREATININE 0.6 mg/dL (0.5-0.9); GLUCOSE 206 mg/dL (70-104); SODIUM 158 mmol/L (136-145); TCO2 26 mmol/L (25-35)
[2019-08-25] MEDS: ATIVAN IV PRN (11:40)
[2019-08-25] MEDS: D5W 1,000 ML IV SCH ×2 (13:41→20:32)
--- NOTE | 2019-08-25 17:52 | NEPHROLOGY CONSULTATION ---
DATE: 08/25/2019 REASON FOR CONSULTATION: Hypernatremia. HISTORY OF PRESENT ILLNESS: Ms Alvarado is a 79-year-old woman with dementia who was admitted to the hospital with status epilepticus. In this context, she has been somewhat altered. Her sodium has risen since admission from 137 to 158 today. She has known diabetes insipidus for which she is being treated with DDAVP with excellent management. Unfortunately because of her altered mental status she has not been able to access water freely. She is not able to provide any further history. PAST MEDICAL HISTORY: As above. Social history, family history, review of systems otherwise as recorded. OBJECTIVE: Vital Signs: Blood pressure 134/79, heart rate 87, respirations 16, afebrile. General: Elderly chronically ill woman unresponsive no distress. Skin is warm and dry. Conjunctivae are pink. Corneal arcus is present. Pupils are 2 mm and reactive. Oropharynx is dry. Neck: Neck veins are not visible. Heart: Regular. No gallops. Lungs: Equal. No crackles or wheezes. Abdomen: Soft, nontender. No organomegaly, masses, bruits. Extremities: No edema, clubbing or cyanosis. IMPRESSION: Hypernatremia. Dr. Alba has increased her DDAVP. She needs free water replacement which I will give. She also has volume contraction but I will address that once her sodium is improving if required. cc: MD Yanely Menezes MD
[2019-08-26] MEDS: D5W 1,000 ML IV SCH (03:54)
[2019-08-26] MEDS: KEPPRA 1,000 MG in NS 100 ML IV SCH ×2 (05:28→23:43)
[2019-08-26] MEDS: HUMALOG SUBQ SCH ×4 (06:41→22:06)
[2019-08-26] MEDS: ROCEPHIN 1 GM in NS 50 ML IV SCH (06:41)
[2019-08-26] MEDS ORDERED: LANTUS INSULIN SUBQ SCH (09:00)
[2019-08-26 09:04] LABS: AGAP 11; ALBUMIN 2.8 g/dL (3.5-5.0); BUN 14 mg/dL (8-22); CALCIUM 8.9 mg/dL (8.8-10.2); CHLORIDE 111 mmol/L (98-107); COSMO 298; CREATININE 0.6 mg/dL (0.5-0.9); ESTIMATED GFR > 60; GLUCOSE 254 mg/dL (70-104); PHOSPHORUS 2.7 mg/dL (2.7-4.5); SODIUM 145 mmol/L (136-145); TCO2 23 mmol/L (25-35)
[2019-08-26] MEDS: DDAVP 0.01% NAS SCH ×2 (09:09→23:44)
--- NOTE | 2019-08-26 09:46 | PROGRESS NOTE ---
DATE: 08/26/2019 Ms. Alvarado is resting quietly this morning. She opens her eyes to verbal stimuli. She told me good morning. She could tell me her name and the name of her children. She has had no further seizure activity. Serum sodium is still elevated at 154. She is on DDAVP and free water. She denies any chest pain, palpitations, or anginal equivalents. Breathing is nonlabored. Blood sugars are still fluctuating. OBJECTIVE: Vital Signs: Temperature 97.3 degrees, pulse 83, respirations 13, BP 118/65. CV: Regular rate and rhythm. Lungs: Clear. Abdomen: Soft, nontender with active bowel sounds. Neuro: She moves all extremities grossly. She is oriented to name only. Speech is fluent. ASSESSMENT AND PLAN: 1. New onset generalized tonic clonic seizures. She remains seizure-free. I will transition her to oral Keppra 1000 mg b.i.d. 2. 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 We will continue DDAVP and giving her free water. I will recheck a BMP and urine osmolality this morning. 3. 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 Blood sugars are fluctuating on the D5. I will add low-dose Lantus and continue pattern sugars and a Humulin R sliding scale. cc: Yanely Alba MD
[2019-08-26] MEDS: D50W SYRINGE IV PRN (10:51)
--- NOTE | 2019-08-26 14:39 | PROGRESS NOTE ---
DATE: 08/26/2019 SUBJECTIVE: Ms. Alvarado has had stable course from neurologic standpoint with slow improvement in encephalopathy and she may be near her baseline now. She has tolerated levetiracetam 1000 mg q.12 hours. There is no clinical evidence of levetiracetam toxicity. Renal function continues very good and we do not expect levetiracetam toxicity at this dose. Since she has been seizure-free with levetiracetam on board and appears to be tolerating current dose, I would not change anything from neurologic standpoint. ASSESSMENT/PLAN: I will sign off and be glad to see her again at Dr. Hair's discretion. Thanks for asking me to see Ms. Alvarado. cc: MD Yanely Nieves III, MD MTDD
--- NOTE | 2019-08-26 16:16 | PROVIDER PROGRESS NOTE ---
Progress Note Subjective: unable to communicate Objective: temperature 97.2, pulse 84, respirations 10, blood pressure 121/67, O2 sat 100% on room air. General: chronically ill -[place]izen [place] female lying in bed in no acute distress HEENT: normocephalic, atraumatic, pupils equal and reactive, mucous membranes dry. Skin: warm and dry. Neck: supple, No jvd. Cardiovascular: S1S2 regular rate and rhythm, no murmur or gallop. Respiratory: Clear with equal air entry anteriorly. Abdomen: soft, nontender, nondistended, bowel sounds present. Extremities: no clubbing, edema, or cyanosis. : non inspected, Wick in place with Fay urine. Neurological: Drowsy, unable to follow commands. Labs: sodium 145, potassium 4.0, chloride 111, carbon dioxide 23, BUN 14, creatinine 0.6. Intake 2000, output 1700. Impression: Hypernatremia/DI. Improved. Today it is down to 145. Continue current treatment plan with free water and ddavp. Blood pressure. Stable. Acid base balance. Stable. Nutrition. Medication review. No changes. AMS. Reassess over the next 1-2 days. nayana
[2019-08-26] MEDS: ATIVAN IV PRN (23:44)
[2019-08-27] MEDS: KEPPRA 1,000 MG in NS 100 ML IV SCH (05:07)
[2019-08-27] MEDS: HUMALOG SUBQ SCH ×4 (06:10→21:08)
[2019-08-27] MEDS: ROCEPHIN 1 GM in NS 50 ML IV SCH (06:18)
[2019-08-27 06:36] LABS: AGAP 10; ALBUMIN 2.9 g/dL (3.5-5.0); BUN 9 mg/dL (8-22); CALCIUM 9.2 mg/dL (8.8-10.2); CHLORIDE 109 mmol/L (98-107); COSMO 281; CREATININE 0.5 mg/dL (0.5-0.9); ESTIMATED GFR > 60; GLUCOSE 112 mg/dL (70-104); PHOSPHORUS 3.3 mg/dL (2.7-4.5); POTASSIUM 3.7 mmol/L (3.5-5.1); SODIUM 141 mmol/L (136-145); TCO2 22 mmol/L (25-35)
--- NOTE | 2019-08-27 08:55 | PROGRESS NOTE ---
DATE: 08/27/2019 SUBJECTIVE: Mrs. Mayela Alvarado continues with slow improvement from a neurologic standpoint. She has had no further seizure activity. She is more awake and interactive. She could tell me her name and the names of her children. She still does not know where she is. Serum sodium is trending down. Blood sugars are ranging from 94 to 195. We had added Lantus 10 units subcutaneously daily. OBJECTIVE: Vital Signs: Temperature 98 degrees, pulse 85, respirations 17, BP 132/77. CV: Regular rate and rhythm. Lungs: Clear. Abdomen: Soft, nontender, with active bowel sounds. No hepatosplenomegaly. No abdominal bruits. ASSESSMENT AND PLAN: 1. New-onset grand mal seizures with status epilepticus. She has had a prolonged postictal course. The encephalopathy is continuing to improve. She is more awake and arousable. She can tell me her name and the names of her children. We will transition her to oral Keppra. 2. Type 2 insulin-dependent diabetes mellitus. We will continue a gastrointestinal soft diet, pattern sugars, Humulin R sliding scale, and I will increase the dosage of Lantus to 15 units subcutaneously daily. 3. Hyponatremia secondary to diabetes insipidus. Her serum sodium was down to 141 this morning. We will continue free water and Desmopressin. I will recheck a BMP in the morning. Given her overall health, I am really not sure that Mrs. Alvarado will ever be able to live at home independently. We have consulted [facility] for short-term rehab placement, with the idea that long-term long term care may be appropriate, depending on her clinical course. cc: Yanely Alba MD
[2019-08-27] MEDS: KEPPRA PO SCH ×2 (10:20→21:08)
[2019-08-27] MEDS: DDAVP 0.01% NAS SCH ×2 (10:20→21:08)
[2019-08-27] MEDS: ATIVAN IV PRN ×3 (12:51→23:25)
--- NOTE | 2019-08-27 18:32 | PROVIDER PROGRESS NOTE ---
Progress Note Subjective: she voice is feeling well. Staff is feeding her breakfast. Tolerating without difficulty Objective: temperature 97.5, pulse 85, respirations 18, blood pressure 132/79, 02 sat 100% on room air. General: chronically ill -Citizen Of [place] female lying in bed in no acute distress HEENT: normocephalic, atraumatic, pupils equal and reactive, mucous membranes dry. Skin: warm and dry. Neck: supple, No jvd. Cardiovascular: S1S2 regular rate and rhythm, no murmur or gallop. Respiratory: Clear with equal air entry anteriorly. Abdomen: soft, nontender, nondistended, bowel sounds present. Extremities: no clubbing, edema, or cyanosis. : non inspected, Wick in place with Fay urine. Neurological: alert and oriented to person. Following commands. Labs: sodium 141, potassium 3.7, chloride 109, carbon dioxide 22, BUN nine, creatinine 0.5. Intake 860, output 950. Impression: Hypernatremia. Sodium continues to improve. Sodium is 141 today. She is more alert and close to her baseline neurological status. Continue current plan with [place] and DDAVP. Will continue to monitor her mental status. Blood pressure. Stable. Electrolytes and Acid base balance. Stable. Nutrition. Adequate. Staff assisted feeds. Medication review. No changes.
[2019-08-28] MEDS: HUMALOG SUBQ SCH ×4 (06:12→20:56)
[2019-08-28 06:58] LABS: AGAP 11; BUN 11 mg/dL (8-22); CHLORIDE 109 mmol/L (98-107); COSMO 289; CREATININE 0.5 mg/dL (0.5-0.9); ESTIMATED GFR > 60; GLUCOSE 182 mg/dL (70-104); PHOSPHORUS 3.6 mg/dL (2.7-4.5); SODIUM 143 mmol/L (136-145); TCO2 23 mmol/L (25-35)
[2019-08-28] MEDS: DDAVP 0.01% NAS SCH ×2 (08:20→20:47)
[2019-08-28] MEDS: KEPPRA PO SCH ×2 (08:21→20:55)
[2019-08-28] MEDS: ROCEPHIN 1 GM in NS 50 ML IV SCH (08:21)
--- NOTE | 2019-08-28 19:35 | NEPHROLOGY PROGRESS NOTE ---
DATE: 08/28/2019 SUBJECTIVE: She is eating. She is being fed applesauce by the staff. No complaints. She was nonverbal. OBJECTIVE: Vital Signs: Blood pressure 110/51, heart rate 90, respiration 19, afebrile. General: No acute distress. Skin: Warm and dry. Oropharynx is moist. Neck: Veins are not distended. Heart: Regular. Lungs: Equal. No crackles. Abdomen: Soft, nontender. Extremities: No edema. IMPRESSION/PLAN: Hypernatremia. Resolved with IV fluids. She has been off fluids for 24 hours without recrudescence of hypernatremia. I discussed her volume needs with her nurse and with the charge nurse to ensure that she is given access to approximately 2 L of fluid on a daily basis. cc: MD Yanely Menezes MD
--- NOTE | 2019-08-28 20:13 | PROGRESS NOTE ---
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 She is currently receiving free water and DDAVP. Her serum sodium was normal today at 143. Neurologically, she continues with slow progress, but is approaching her baseline neurologically. She can tell me that she lives in [place] and what her name is. She can identify her children. She has had no further seizure activity, and she is having episodes of agitation where she tries to get out of bed and she has pulled out IV's. She has been in soft restraints. Blood sugars are ranging from 123 to 193. OBJECTIVE: Vital signs: Temperature 97.9 degrees, pulse 76, respirations 19, BP 117/66. CV: Regular rate and rhythm. Lungs: Clear. Abdomen: Soft and nontender with active bowel sounds. ASSESSMENT AND PLAN: 1. Diabetes insipidus. We will continue free water and DDAVP. 2. New onset generalized tonic colonic seizures with prolonged postictal course. She is approaching her baseline neurologically. She has had no further seizure activity. Keppra sometimes can cause increased agitation. I will reduce the dosage of Keppra to 500 mg b.i.d. and begin Depakote 250 mg b.i.d. Potentially, we could titrate upward on the Depakote and wean her off the Keppra. 3. Type 2 insulin dependent diabetes mellitus. We will continue patterned sugars, Humulin R sliding scale, and low dose Lantus. cc: Yanely Alba MD
[2019-08-28] MEDS: DEPAKOTE PO SCH (20:48)
[2019-08-29] MEDS: ATIVAN IV PRN ×4 (01:13→21:21)
[2019-08-29] MEDS: HUMALOG SUBQ SCH ×4 (06:37→23:15)
[2019-08-29 07:43] LABS: AGAP 9; BUN 6 mg/dL (8-22); CALCIUM 8.9 mg/dL (8.8-10.2); CHLORIDE 103 mmol/L (98-107); COSMO 274; CREATININE 0.5 mg/dL (0.5-0.9); ESTIMATED GFR > 60; GLUCOSE 186 mg/dL (70-104); PHOSPHORUS 2.8 mg/dL (2.7-4.5); SODIUM 136 mmol/L (136-145); TCO2 24 mmol/L (25-35)
[2019-08-29] MEDS: KEPPRA PO SCH ×2 (08:01→21:21)
[2019-08-29] MEDS: DEPAKOTE PO SCH ×2 (08:01→21:21)
[2019-08-29] MEDS: ROCEPHIN 1 GM in NS 50 ML IV SCH (08:01)
--- NOTE | 2019-08-29 13:32 | PROGRESS NOTE ---
DATE: 08/29/2019 Ms. Alvarado has seemed less agitated and restless. They have not been forced to use nonviolent soft restraints since 4 p.m. on 08/28/2019. She seems a little bit more sedated this morning. She does open her eyes to verbal stimuli and answered some simple questions with yes or no. Blood sugars are ranging from 123 to 191. Her serum sodium is 136. OBJECTIVE: Vital Signs: Temperature 98.6 degrees, pulse 86, respirations 20, BP 108/59. CV: Regular rate and rhythm. Lungs: Clear. Abdomen: Soft and nontender with active bowel sounds. ASSESSMENT AND PLAN: 1. Diabetes insipidus. Her serum sodium is 136. We will continue vasopressin and we will continue DDAVP and recheck serum sodium in the morning. 2. She seems less agitated. 3. Type 2 insulin-dependent diabetes mellitus. We will continue pattern sugars and a Humulin R sliding scale. 4. Urinary tract infection. She is afebrile. Urine culture grew out Klebsiella pneumoniae. She was transitioned to Bactrim. 5. Generalized tonic clonic seizures with a prolonged postictal course. She seems less agitated on lower doses of Keppra. I am going to reduce the dosage of Keppra to 250 mg b.i.d. and titrate upward on the Depakote as indicated. cc: Yanely Alba MD
[2019-08-30] MEDS: HUMALOG SUBQ SCH ×4 (06:41→23:46)
[2019-08-30 06:49] LABS: AGAP 11; ALBUMIN 2.8 g/dL (3.5-5.0); BUN 6 mg/dL (8-22); CALCIUM 9.3 mg/dL (8.8-10.2); CHLORIDE 111 mmol/L (98-107); COSMO 290; CREATININE 0.5 mg/dL (0.5-0.9); ESTIMATED GFR > 60; GLUCOSE 133 mg/dL (70-104); PHOSPHORUS 3.4 mg/dL (2.7-4.5); POTASSIUM 3.7 mmol/L (3.5-5.1); SODIUM 146 mmol/L (136-145); TCO2 24 mmol/L (25-35)
[2019-08-30] MEDS ORDERED: D5 1/2 NS 1,000 ML IV SCH (09:30)
--- NOTE | 2019-08-30 10:08 | PROGRESS NOTE ---
DATE: 08/30/2019 SUBJECTIVE: Ms Alvarado was admitted to [facility] in status epilepticus. She was having recurrent generalized tonic colonic seizures. She remains seizure-free on a combination of Depakote and Keppra. She seems more lethargic at this morning. Her serum sodium has jumped from 136 to 146. She still has poor p.o. intake. Nursing staff is still having to feed her. She has not had any additional free water in several days. OBJECTIVE: Temperature 98.8 degrees, pulse 77, respirations 12, BP 103/69. CV regular rate and rhythm. Lungs clear. Abdomen soft nontender with active bowel sounds. Neuro: She arouses to verbal stimuli. She opens her eyes. She can tell me her name. She moves all extremities grossly. ASSESSMENT AND PLAN: 1. Generalized tonic colonic seizure. She remains seizure-free. We will continue Depakote and low-dose Keppra. 2. 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 Her serum sodium has increased from 136 to 146. I will give her a L of D5 half-normal saline today and recheck a BMP in the morning. cc: Yanely Alba MD
[2019-08-30] MEDS: KEPPRA PO SCH ×2 (10:33→23:45)
[2019-08-30] MEDS: DDAVP 0.01% NAS SCH ×3 (10:33→23:46)
[2019-08-30] MEDS: DEPAKOTE PO SCH ×2 (10:33→23:45)
[2019-08-30] MEDS: ATIVAN IV PRN ×3 (14:19→17:49)
[2019-08-31] MEDS: HUMALOG SUBQ SCH ×4 (06:49→21:00)
[2019-08-31 07:55] LABS: AGAP 11; ALBUMIN 2.9 g/dL (3.5-5.0); BUN 7 mg/dL (8-22); CALCIUM 9.3 mg/dL (8.8-10.2); CHLORIDE 114 mmol/L (98-107); COSMO 295; CREATININE 0.5 mg/dL (0.5-0.9); ESTIMATED GFR > 60; GLUCOSE 112 mg/dL (70-104); PHOSPHORUS 3.1 mg/dL (2.7-4.5); POTASSIUM 4.1 mmol/L (3.5-5.1); SODIUM 149 mmol/L (136-145); TCO2 24 mmol/L (25-35)
[2019-08-31] MEDS: ATIVAN IV PRN ×2 (08:25→17:16)
[2019-08-31] MEDS: DDAVP 0.01% NAS SCH ×2 (10:50→20:09)
[2019-08-31] MEDS: DEPAKOTE PO SCH (10:51)
[2019-08-31] MEDS: KEPPRA PO SCH (10:51)
[2019-08-31] MEDS ORDERED: POTASSIUM CHLORIDE 20 MEQ, MAGNESIUM SULFATE 2 GM, THIAMINE 100 MG, FOLIC ACID 1 MG, M.... IV SCH ×6 (12:45)
--- NOTE | 2019-08-31 13:15 | PROGRESS NOTE ---
DATE: 08/31/2019 SUBJECTIVE: Ms. Alvarado was much more sedated and difficult to arouse this morning. She has not required any physical restraints since 4 p.m. on 08/28/2019. She has had no obvious seizure activity. Oral intake is poor. Serum sodium is trending upward and was 149 this morning. OBJECTIVE: Vital Signs: Temperature 99.2 degrees, pulse 94, respirations 22, blood pressure 105/42. Cardiovascular: Regular rate and rhythm. Lungs: Clear. Abdomen: Soft, nontender with active bowel sounds. ASSESSMENT AND PLAN: 1. 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 Serum sodium is trending upward. I do not think she is getting enough free water in her diet. I am going to resume half-normal saline at 100 mL per hour and continue DDAVP. I will recheck a BMP in the morning. 2. Urinary tract infection. I will resume Rocephin 1 gram IV daily. 3. Generalized tonic colonic seizures. She is not having seizure activity. She is really not taking her oral medicines. I will hold the Depakote and switch the Keppra back to intravenous 500 mg b.i.d. 4. Given her poor p.o. intake, it may be worthwhile to consider placing a nasogastric tube to give her tube feedings and to provide medications. termination clerk I am not sure if she will ever be able to take in enough oral intake and may ultimately need a percutaneous endoscopic gastrostomy tube. I am going to discuss with the family. cc: Yanely Alba MD
--- NOTE | 2019-08-31 16:22 | PROVIDER PROGRESS NOTE ---
Progress Note Subjective: she voices feeling well but can not tell me her name or date of . Objective: temperature 97.7, pulse 94, respirations 20, blood-pressure 98/53, O2 sat 98% on room air. General: chronically ill -[place]wegian female lying in bed in no acute distress HEENT: normocephalic, atraumatic, pupils equal and reactive, mucous membranes dry. Skin: warm and dry. Neck: supple, No jvd. Cardiovascular: S1S2 regular rate and rhythm, no murmur or gallop. Respiratory: Clear with equal air entry anteriorly. Abdomen: soft, nontender, nondistended, bowel sounds present. Extremities: no clubbing, edema, or cyanosis. : non inspected, Wick in place with Fay urine. Neurological: alert and oriented to self. Following some commands. Labs: intake 237, output 1400. Sodium 149, potassium 4.1, chloride 114, carbon dioxide 24, BUN seven, creatinine 0.5, albumin 2.9. Impression: Hypernatremia. Sodium Trending up to 149 and her mental status is declining again. Poor intake over the last 48 hours. Added D5W. Blood pressure. Low but Stable. Electrolytes and Acid base balance. Stable. Nutrition. Adequate. Staff assisted feeds. Ambulation. Needs. Medication review. Depakote and Keppra started.
[2019-08-31] MEDS ORDERED: D5 NS 1,000 ML IV SCH (17:30)
[2019-08-31] MEDS: KEPPRA 500 MG/NS 500 MG/100 ML IVPB IV SCH (17:45)
[2019-09-01] MEDS: HUMALOG SUBQ SCH ×4 (06:19→21:01)
[2019-09-01] MEDS: KEPPRA 500 MG/NS 500 MG/100 ML IVPB IV SCH ×2 (06:19→17:16)
[2019-09-01 09:19] LABS: AGAP 10; ALB/GLOB RATIO 0.8; ALKALINE PHOSPHATASE 77 U/L (32-104); BUN 6 mg/dL (8-22); CALCIUM 9.1 mg/dL (8.8-10.2); CHLORIDE 112 mmol/L (98-107); COSMO 292; CREATININE 0.5 mg/dL (0.5-0.9); ESTIMATED GFR > 60; GLUCOSE 138 mg/dL (70-104); GOT 23 U/L (10-30); GPT 13 U/L (10-36); POTASSIUM 4.4 mmol/L (3.5-5.1); SODIUM 147 mmol/L (136-145); TCO2 25 mmol/L (25-35); TOTAL BILIRUBIN 0.35 mg/dL (0.20-1.00)
[2019-09-01] MEDS: DDAVP 0.01% NAS SCH ×2 (09:57→21:31)
[2019-09-01] MEDS: ATIVAN IV PRN ×2 (10:15→20:19)
--- NOTE | 2019-09-01 18:49 | PROVIDER PROGRESS NOTE ---
Progress Note Subjective: She is mumbling out sentences but unable to distinguish words. She is responsive to verbal stimuli. Objective: temperature 97.9, pulse 84, respirations 19, blood pressure 126/71, O2 sat 99% on room air. General: chronically ill -[place] female lying in bed in no acute distress HEENT: normocephalic, atraumatic, pupils equal and reactive, mucous membranes dry. Foul odor to mouth. Skin: warm and dry. Neck: supple, No jvd. Cardiovascular: S1S2 regular rate and rhythm, no murmur or gallop. Respiratory: Clear with equal air entry anteriorly. Abdomen: soft, nontender, nondistended, bowel sounds present. Extremities: no clubbing, edema, or cyanosis. : non inspected, Wick in place with Fay urine. Neurological: alert and oriented to self. Following some commands. Labs: [id number], output 525. Sodium 147, potassium 4.4, chloride 112, carbon dioxide 25, BUN 6, creatinine 0.5, albumin 3. Impression: Hypernatremia. Sodium at 147 after 1.3L of D5NS. Administer 1L D5W. Blood pressure. In target. Electrolytes and Acid base balance. Stable. Nutrition. Adequate. Staff assisted feeds. Ambulation. Discharging to rehab. Medication review. Carin started.
[2019-09-01] MEDS ORDERED: D5W 1,000 ML IV SCH (19:00)
[2019-09-02] MEDS: KEPPRA 500 MG/NS 500 MG/100 ML IVPB IV SCH ×2 (05:31→20:18)
[2019-09-02] MEDS: ATIVAN IV PRN ×2 (05:31→19:38)
[2019-09-02] MEDS: HUMALOG SUBQ SCH ×4 (06:38→20:56)
[2019-09-02] MEDS: DDAVP 0.01% NAS SCH ×2 (08:51→20:58)
--- NOTE | 2019-09-02 09:04 | PROGRESS NOTE ---
DATE: 09/02/2019 SUBJECTIVE: Mrs. Alvarado is resting quietly in bed. She seems sedated. She does not open her eyes to either verbal or painful stimuli. Nursing staff has not noted any obvious seizure activity. Blood sugars are ranging from 109 to 190. She requires assistance with meals. She has a history of diabetes insipidus. Her serum sodium was 147 yesterday. She was given additional D5 half-normal saline. Serum sodium is pending this morning. OBJECTIVE: Vital Signs: Temperature 97.8 degrees, pulse 83, respirations 16, blood pressure 109/77. CV: Regular rate and rhythm. Lungs: Clear. Abdomen: Soft, nontender, with active bowel sounds. Neurologic: She moves all extremities grossly. She does not open her eyes to verbal or painful stimuli. ASSESSMENT AND PLAN: 1. Grand mal seizures. She remains seizure-free. We will continue Keppra 500 mg intravenously twice daily. She still appears encephalopathic. Her neurologic status fluctuates from day today. Certainly, her serum sodium could be trending upward. I will recheck a serum sodium today. Further recommendations will be made based upon those results. 2. She was treated for a urinary tract infection. Urine cultures grew out Klebsiella. She took Rocephin for 1 week. I will recheck a catheter urinalysis and a urine culture, as well as a CBC. 3. Type 2 insulin-dependent diabetes mellitus. We will continue pattern sugars and a Humulin R sliding scale. cc: Yanely Alba MD
[2019-09-02 09:26] LABS: AGAP 10; ALBUMIN 3.2 g/dL (3.5-5.0); BUN 6 mg/dL (8-22); CALCIUM 9.3 mg/dL (8.8-10.2); CHLORIDE 110 mmol/L (98-107); COSMO 294; CREATININE 0.6 mg/dL (0.5-0.9); ESTIMATED GFR > 60; GLUCOSE 205 mg/dL (70-104); POTASSIUM 3.8 mmol/L (3.5-5.1); SODIUM 146 mmol/L (136-145); TCO2 26 mmol/L (25-35)
--- NOTE | 2019-09-02 09:37 | PROGRESS NOTE ---
DATE: 09/01/2019 Ms. Alvarado has had no further seizure activity. She seems more sedated, but she does open her eyes to verbal stimuli. Speech is unintelligible. Serum sodium has trended down from 149 to 147. Blood sugars are ranging from 115 to 192. OBJECTIVE: Vital Signs: Temperature 98.1 degrees, pulse 87, respirations 17, blood pressure 115/67. CV: Regular rate and rhythm. Lungs: Clear. Abdomen: Soft, nontender with active bowel sounds. ASSESSMENT AND PLAN: 1. Generalized tonic colonic seizures. She remains seizure-free. We will continue Keppra. 2. Encephalopathy. Her neurologic status continues to wax and wane. She is not having any obvious seizure activity that has been witnessed. Her most recent EEG demonstrated no obvious seizure activity. She does have hypernatremia secondary to diabetes insipidus. I will give her additional D5 half-normal saline and recheck a BMP in the morning. cc: Yanely Alba MD
[2019-09-02 10:09] LABS: HEMATOCRIT 42.6 % (37.0-47.0); MCHC 32.9 g/dL (33-37); MCV 88.2 FL (81-99); MPV 12.5 FL (7.4-10.4); RBC 4.83 XMIL (4.2-5.4); RDW 15.2 % (11.5-14.5); WBC 7.56 X1000 (4.8-10.8)
[2019-09-02] MEDS ORDERED: D5 1/2 NS 500 ML IV SCH (11:00)
--- NOTE | 2019-09-02 14:15 | PROVIDER PROGRESS NOTE ---
Progress Note Subjective: unable to arouse her verbally. Minimal moan with tactile stimulation. Objective: temperature any 7.8, pulse 83, respiration 16, blood pressure 109/77, O2 sat 100% on room air. General: chronically ill -Congolese female lying in bed in no acute distress HEENT: normocephalic, atraumatic, pupils equal, mucous membranes dry. Skin: warm and dry. Neck: supple, No jvd. Cardiovascular: S1S2 regular rate and rhythm, gallop appreciated. Respiratory: Clear with equal air entry anteriorly. Abdomen: soft, nontender, nondistended, bowel sounds present. Extremities: no clubbing or cyanosis. Pitting at hips bilaterally. : non inspected, Wick in place with Fay urine. Neurological: alert and oriented to self. Following some commands. Labs: sodium 146, potassium 3.8, chloride 110, carbon dioxide 26, BUN six, creatinine 0.6, albumin 3.2, intake 100, output 1125. Impression: Hypernatremia. Stable at 146 after 1L D5W. Continues free water and DDAVP. Blood pressure. In target. Electrolytes and Acid base balance. Stable. Nutrition. Unable to awaken to eat today. Ambulation. Discharging to rehab. Medication review. No changes.
[2019-09-02 16:15] LABS: URINE SOURCE CLEAN CATCH
[2019-09-02 16:30] LABS: BILIRUBIN URINE NEGATIVE (NEGATIVE); BLOOD URINE NEGATIVE (NEGATIVE); COLOR YELLOW; GLUCOSE URINE NEGATIVE (NEGATIVE); KETONE URINE NEGATIVE (NEGATIVE); LEUKOCYTES URINE SMALL (NEGATIVE); NITRITE URINE NEGATIVE (NEGATIVE); PROTEIN URINE NEGATIVE (NEGATIVE); SP GRAVITY URINE 1.014; TURBIDITY URINE CLEAR (CLEAR); UROBILINOGEN URINE NORMAL (NORMAL)
[2019-09-03] MEDS: KEPPRA 500 MG/NS 500 MG/100 ML IVPB IV SCH ×2 (05:35→17:51)
[2019-09-03] MEDS: HUMALOG SUBQ SCH ×4 (06:08→20:26)
[2019-09-03] MEDS: D5W 1,000 ML IV SCH ×2 (06:42)
[2019-09-03 06:52] LABS: AGAP 5; ALBUMIN 3.1 g/dL (3.5-5.0); BUN 7 mg/dL (8-22); CALCIUM 9.3 mg/dL (8.8-10.2); CHLORIDE 107 mmol/L (98-107); COSMO 286; CREATININE 0.5 mg/dL (0.5-0.9); ESTIMATED GFR > 60; GLUCOSE 148 mg/dL (70-104); PHOSPHORUS 3.1 mg/dL (2.7-4.5); POTASSIUM 3.8 mmol/L (3.5-5.1); SODIUM 143 mmol/L (136-145); TCO2 31 mmol/L (25-35)
[2019-09-03] MEDS: DDAVP 0.01% NAS SCH ×2 (09:36→20:26)
[2019-09-03] MEDS: ATIVAN IV PRN (11:17)
--- NOTE | 2019-09-03 15:14 | PROVIDER PROGRESS NOTE ---
Progress Note Subjective: She was able to speak one word to me today. She did not open her eyes. Objective: temperature 99.1, pulse 86, respirations 20, blood pressure 108/53, O2 sat 100% on room air. General: chronically ill -[place] female lying in bed in no acute distress HEENT: normocephalic, atraumatic, pupils equal, mucous membranes dry. Skin: warm and dry. Neck: supple, No jvd. Cardiovascular: S1S2S4, regular rate and rhythm, gallop appreciated. Respiratory: Clear with equal air entry anteriorly. Abdomen: soft, nontender, nondistended, bowel sounds present. Extremities: no clubbing or cyanosis. Trace Pitting at hips bilaterally. : non inspected, Wick in place with Fay urine. Neurological: Unable to assess. Spoke one word. Labs: sodium 143, potassium 3.8, carbon dioxide 107, BUN seven, creatinine 0.5, glucose 148, albumin 3.1. Intake 735, output 600. Impression: Hypernatremia. Resolved with fluids and DDAVP. Blood pressure. In target. Electrolytes and Acid base balance. Stable. Nutrition. Very little intake due to cognition. Ambulation. Unable to participate. Medication review. No changes. Disposition. Spoke with Dr. Alba about her hypernatremia and we agree this will likely keep occurring due to her nutritional and cognitive status. However, she is a poor candidate for tube feeding placement. Dr. Alba will be having a conversation with family about possible discharge to hospice.
[2019-09-04] MEDS: ATIVAN IV PRN ×4 (03:10→20:03)
[2019-09-04] MEDS: KEPPRA 500 MG/NS 500 MG/100 ML IVPB IV SCH ×2 (05:22→18:30)
[2019-09-04 05:59] LABS: AGAP 12; BUN 7 mg/dL (8-22); CALCIUM 9.4 mg/dL (8.8-10.2); CHLORIDE 107 mmol/L (98-107); COSMO 284; CREATININE 0.5 mg/dL (0.5-0.9); ESTIMATED GFR > 60; GLUCOSE 119 mg/dL (70-104); PHOSPHORUS 3.6 mg/dL (2.7-4.5); POTASSIUM 3.4 mmol/L (3.5-5.1); SODIUM 143 mmol/L (136-145); TCO2 24 mmol/L (25-35)
[2019-09-04] MEDS: HUMALOG SUBQ SCH ×4 (05:59→22:25)
[2019-09-04] MEDS: DDAVP 0.01% NAS SCH ×2 (09:17→20:03)
--- NOTE | 2019-09-04 10:39 | PROGRESS NOTE ---
DATE: 09/04/2019 SUBJECTIVE: Ms. Alvarado seems very calm this morning. She is not trying to get out of bed. She has not required physical restraints in nearly 1 week. She opens her eyes to verbal stimuli. She can tell me her name. She was eating well with the assistance of 1 of the nurses. She has had no further seizure activity. Repeat urine culture demonstrated no growth. Blood sugars are ranging from 91 to 196. Her serum sodium has normalized at 143. OBJECTIVE: Vital Signs: Temperature 97.9 degrees, pulse 92, respirations 20, blood pressure 126/70. Cardiovascular: Regular rate and rhythm. Lungs: Clear . Abdomen: Soft, nontender with active bowel sounds. Extremities: Without edema. LABORATORY DATA: A BMP demonstrated the following: Sodium 143, potassium 3.4, chloride 107, CO2 24, BUN 7, creatinine 0.5 and glucose 119. ASSESSMENT AND PLAN: 1. Generalized tonic colonic seizures with prolonged postictal course and encephalopathy. She seems stable from a neurologic standpoint, I am really afraid that she has sustained brain damage from the recurrent seizures. I really believe that she is approaching her new baseline neurologically. She is not agitated or trying to get out of bed. She eats with the assistance of 1 of the nurses. We will continue Keppra 500 mg IV q.12 hours. 2. 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 We will continue DDAVP and give her free water as necessary. 3. Type 2 insulin-dependent diabetes mellitus. Blood sugars are fairly stable. We will continue patterned sugars and a Humulin R sliding scale. cc: Yanely Alba MD
[2019-09-05] MEDS: KEPPRA 500 MG/NS 500 MG/100 ML IVPB IV SCH ×2 (06:10→17:07)
[2019-09-05 06:13] LABS: AGAP 11; ALBUMIN 2.9 g/dL (3.5-5.0); BUN 6 mg/dL (8-22); CALCIUM 9.2 mg/dL (8.8-10.2); CHLORIDE 103 mmol/L (98-107); COSMO 277; CREATININE 0.5 mg/dL (0.5-0.9); ESTIMATED GFR > 60; GLUCOSE 161 mg/dL (70-104); PHOSPHORUS 3.1 mg/dL (2.7-4.5); POTASSIUM 3.5 mmol/L (3.5-5.1); SODIUM 138 mmol/L (136-145); TCO2 24 mmol/L (25-35)
[2019-09-05] MEDS: HUMALOG SUBQ SCH ×4 (07:47→20:03)
--- NOTE | 2019-09-05 09:33 | Diag Imaging Result Doc PS360 ---
CHEST-PORTABLE - 09/05/2019 INDICATION: HTN COMPARISON: 08/20/2019 FINDINGS: Stable cardiomegaly and pulmonary vascular congestion. Stable minimal interstitial pulmonary edema. There is linear atelectasis in the right midlung. No large pleural effusion. IMPRESSION: Cardiomegaly, pulmonary vascular congestion, interstitial pulmonary edema. Electronically signed by Jorge Luis Hairston 09/05/2019 9:30 AM
[2019-09-05] MEDS: DDAVP 0.01% NAS SCH ×2 (09:48→20:05)
--- NOTE | 2019-09-05 12:02 | PROGRESS NOTE ---
DATE: 09/05/2019 SUBJECTIVE: Ms. Alvarado is resting comfortably in bed. She opens her eyes to verbal stimuli. She can tell me her name and the name of her children. Otherwise, there has been no significant change neurologically. She remains seizure-free. Blood sugars are ranging from 123 to 191. She is requiring assistance with eating. She is eating at least 60 to 70 percent of her meals. OBJECTIVE: Vital Signs: Temperature 97.5 degrees, pulse 82, respirations 18, BP 123/87. CV: Regular rate and rhythm. Lungs: Clear. Abdomen: Soft, nontender with active bowel sounds. Neurologic: She moves all extremities grossly. She opens her eyes to verbal stimuli. She can tell me her name. LABORATORY DATA: Various laboratory studies were obtained. A BMP demonstrated the following: Sodium 138, potassium 3.5, chloride 103, BUN 6, creatinine 0.5 and glucose 161. ASSESSMENT AND PLAN: 1. Generalized tonic-colonic seizures. She remains seizure-free. She did have a prolonged postictal phase. Unfortunately, I suspect that she has sustained brain damage due to recurrent seizures. There does not appear to be any evidence of seizures. Her most recent electroencephalogram was unremarkable. We will continue Keppra 500 mg intravenous every 12 hours. 2. 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 We will continue an 1800 calorie [employer] diet, pattern sugars and a Humulin R sliding scale. 3. 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 The hypernatremia has resolved. We will give her D5 half-normal saline as needed and continue DDAVP. Ms. Alvarado is chronically ill and her long-term outlook is poor. I do not believe that she will be able to live independently in the future. I have had long discussions with her family. I believe that she will require long-term long-term care. We are in the process of initiating bladder training in order to stop the Wick catheter. I have spoken to Brii at [facility] and we hope to be able to transfer her on Saturday to the long-term. cc: Yanely Alba MD
[2019-09-05] MEDS: ATIVAN IV PRN (17:06)
[2019-09-06] MEDS: ATIVAN IV PRN (01:30)
[2019-09-06] MEDS: KEPPRA 500 MG/NS 500 MG/100 ML IVPB IV SCH ×2 (05:23→18:27)
[2019-09-06 05:44] LABS: AGAP 12; BUN 5 mg/dL (8-22); CHLORIDE 107 mmol/L (98-107); COSMO 275; CREATININE 0.5 mg/dL (0.5-0.9); ESTIMATED GFR > 60; GLUCOSE 107 mg/dL (70-104); POTASSIUM 4.3 mmol/L (3.5-5.1); SODIUM 139 mmol/L (136-145); TCO2 20 mmol/L (25-35)
[2019-09-06] MEDS: HUMALOG SUBQ SCH ×4 (06:18→21:34)
[2019-09-06 06:56] LABS: PREALBUMIN 11.8 mg/dL (20-40)
[2019-09-06] MEDS: DDAVP 0.01% NAS SCH ×2 (09:21→21:55)
--- NOTE | 2019-09-06 09:30 | PROGRESS NOTE ---
DATE: 09/06/2019 Ms. Alvarado is resting quietly this morning. She opens her eyes to verbal and noxious stimuli. She has had no further seizure activity. She is voiding without a Wick. Blood sugars are ranging from 106 to 179. Serum Sodium was 139. PHYSICAL EXAMINATION: Temperature 98.1 degrees, pulse 87, respirations 17, BP 123/48. CV: Regular rate and rhythm. Lungs: Clear. Abdomen: Soft and nontender with active bowel sounds. ASSESSMENT AND PLAN: 1. Generalized tonic-clonic seizures. She remains seizure-free. We will continue Keppra 500 mg intravenous every 12 hours. 2. Type 2 insulin-dependent diabetes mellitus. She is eating fairly well with assistance. We will continue pattern sugars and a Humulin R sliding scale. 3. Diabetes insipidus- Se[place]um sodium is normal. We will continue DDAVP and give free water as needed. cc: Yanely Alba MD MTDD
[2019-09-07] MEDS: ATIVAN IV PRN ×4 (01:13→23:58)
[2019-09-07] MEDS: KEPPRA 500 MG/NS 500 MG/100 ML IVPB IV SCH ×2 (05:01→18:20)
[2019-09-07] MEDS: HUMALOG SUBQ SCH ×4 (06:17→21:01)
--- NOTE | 2019-09-07 09:37 | Diag Imaging Result Doc PS360 ---
EXAM: CT HEAD W/O CONTRAST 09/07/2019 HISTORY: mental status changes, facial droop TECHNIQUE: This exam was performed using automated exposure control, adjustment of mA or kV according to patient size, and/or use of iterative reconstruction technique. COMMENT: There are patchy lucencies in the periventricular white matter and subcortical white matter of both hemispheres. There is no evidence of mass effect, bleed, or abnormal extra-axial fluid collection. Compared to 08/20/2019 this has not changed significantly. The calvarium is intact. There is some hyperostosis frontalis interna. The visualized paranasal sinuses are clear. IMPRESSION: Chronic ischemic microvascular changes. Further evaluation with MRI may be desirable. Electronically signed by Lake Garcia 09/07/2019 9:35 AM
[2019-09-07] MEDS: DDAVP 0.01% NAS SCH ×2 (10:08→21:02)
[2019-09-07 10:34] LABS: HEMATOCRIT 40.9 % (37.0-47.0); HEMOGLOBIN 13.9 g/dL (12.0-16.0); MCH 29.5 PG (27-31); MCV 86.8 FL (81-99); RBC 4.71 XMIL (4.2-5.4); RDW 14.9 % (11.5-14.5); WBC 6.67 X1000 (4.8-10.8)
[2019-09-07 11:16] LABS: AGAP 12; BUN 6 mg/dL (8-22); CALCIUM 9.5 mg/dL (8.8-10.2); CHLORIDE 108 mmol/L (98-107); COSMO 284; CREATININE 0.4 mg/dL (0.5-0.9); ESTIMATED GFR > 60; GLUCOSE 83 mg/dL (70-104); POTASSIUM 3.4 mmol/L (3.5-5.1); SODIUM 144 mmol/L (136-145); TCO2 24 mmol/L (25-35)
--- NOTE | 2019-09-07 17:27 | PROGRESS NOTE ---
DATE: 09/07/2019 When I saw Ms Alvarado earlier this morning, she was more difficult to arouse. She moaned and tried to withdraw from noxious stimuli. She did not speak. A repeat CT scan of the brain demonstrated chronic white matter changes. A repeat EEG is pending. No seizure activity has been witnessed. Blood sugars are consistently below 100. Her appetite is diminished. Vital signs: Temperature 98.6 degrees, pulse 88, respirations 18, BP 105/52. CV: Regular rate and rhythm. Lungs: Clear. Abdomen: Soft, nontender with active bowel sounds. No hepatosplenomegaly. No abdominal bruits. ASSESSMENT AND PLAN: 1. Seizure disorder. She remains seizure-free. There have been no further witnessed seizures. We will continue Keppra 500 mg IV q.12 hours. We will transition her to oral Keppra at discharge. 2. Encephalopathy. I suspect due to the prolonged hypoglycemia and status epilepticus that she has sustained permanent brain damage and in all likelihood has anoxic brain injury. Her mental status is largely unchanged. She is unable to perform activities of daily living. She is essentially bedbound. She requires assistance with bathing, toileting and eating. We anticipate discharge to [facility] tomorrow for long-term retirement care. cc: Yanely Alba MD
--- NOTE | 2019-09-07 18:28 | EEG REPORT ---
DATE: 09/07/2019 REFERRING PHYSICIAN: Yanely Alba MD NATIONAL EXPANSION RECRUITER: Pallavi So BACKGROUND INFORMATION/TECHNIQUE: This is a digitally recorded portable routine EEG with video. HISTORY: An 79-year-old female patient with altered mental status. She was admitted with seizure- like activity at home. EEG is ordered to detect evidence of seizures. MEDICATIONS: Include p.r.n. lorazepam, Keppra. EEG FINDINGS: A posterior dominant alpha rhythm is not seen. The background at maximal alertness consists of theta more than delta slowing with some intermixed faster frequencies. No definite persistent focal slowing. No epileptiform discharges. No seizures. Hyperventilation was not performed. Photic stimulation does not alter the record. The patient becomes drowsy but stage N2 sleep is not seen. The EKG demonstrates regular RR intervals when it is interpretable. IMPRESSION/CLINICAL CORRELATION: Abnormal routine EEG due to moderate generalized slowing indicative of a moderate nonspecific encephalopathy. No epileptiform discharges or seizures seen on the current study. This does not rule out an underlying seizure disorder. Clinical correlation is recommended. cc: MD Yanely Otto MD
[2019-09-08] MEDS: ATIVAN IV PRN (05:24)
[2019-09-08] MEDS: KEPPRA 500 MG/NS 500 MG/100 ML IVPB IV SCH (05:35)
[2019-09-08] MEDS: HUMALOG SUBQ SCH ×2 (06:21→12:03)
[2019-09-08] MEDS ORDERED: KEPPRA PO SCH (09:00)
--- NOTE | 2019-09-08 09:57 | DISCHARGE SUMMARY ---
ADMISSION DATE: 08/20/2019 DISCHARGE DATE: 09/08/2019 DISCHARGE DIAGNOSES: 1. Anoxic encephalopathy. 2. 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 3. 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 4. Urinary tract infection. 5. Migraine headaches. 6. Major depression. 7. 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 DISCHARGE INSTRUCTIONS: 1. The patient will be transferred via ambulance to long-term care at [facility]. 2. Activity as tolerated. 3. GI soft diet. The patient requires assistance with eating. MEDICATIONS: DDAVP 0.01% nasal spray 1 spray to the nose b.i.d., Humalog sliding scale, Keppra 500 mg b.i.d. DISCHARGE PHYSICAL EXAMINATION: This is a chronically ill-appearing, 79-year-old, - [place] lady in no apparent distress. She is afebrile, pulse 87, respirations 18, BP 108/55. CV: Regular rate and rhythm. Lungs: Clear. Abdomen: Soft, nontender, with active bowel sounds. Neurologic: She moves all extremities grossly. She is nonverbal. She will open her eyes at times with verbal or noxious stimuli. She may answer questions with a yes or no. HOSPITAL COURSE: Ms. Mayela Alvarado was admitted to [facility] with new onset grand mal seizures with status epilepticus. They were able to successfully stop the seizures in the ER. She had a prolonged postictal period of time. Her initial CT scan of the brain demonstrated chronic ischemic microvascular white matter disease. No acute stroke was noted. A brain MRI on 08/21/2019 demonstrated mild left occipital encephalomalacia. No acute stroke was noted. Followup EEGs demonstrated global slowing but no obvious seizure activity. Her neurologic exam waxed and waned. Over the past week, she has been at what we feel is her new baseline. At times, she will open her eyes to verbal stimuli or noxious stimuli. She may answer an occasional yes or no question. She was initially loaded with Keppra and has remained seizure-free on the Keppra. We believe, given the prolonged seizures and hypoglycemia, that she has sustained anoxic brain injury and that her long-term prognosis for recovery is poor. She also has a history of diabetes insipidus. She had multiple episodes of hypernatremia. We would continue the DDAVP and give free water. I am concerned that she will continue to have episodes of hypernatremia, even on the DDAVP as she is not taking in enough fluid at times. She may eventually require a PEG tube but given her overall health, I am reticent to really push for PEG placement. I have discussed that with the family and they are not sure at this point in time as to whether they want to proceed with a feeding tube or not. She did have a urinary tract infection. Urine cultures grew out Klebsiella. She was treated with intravenous Rocephin. Followup cultures were negative. Having reached maximum hospital benefit, the patient was discharged in stable condition. cc: Yanely Alba MD
[2019-09-08] MEDS: DDAVP 0.01% NAS SCH (10:39)
[2019-09-08 13:48] VITALS: BP 144/69
== END 2019-09-08 15:03 | DRG 100 ==
LOC: ED 03:39 → SUATTDRO 07:24 → EDBD 07:24 → EDIPHOLD 07:24 → MERGE 07:24 → ICU 18:29 → 1N 08-26 19:13
PROVIDERS: ADMIT Internal Medicine; ATTEND Internal Medicine